=== PATIENT | male | born 1940 | race Caucasian/White ===

== ENCOUNTER → 2017-08-30 | Outpatient (CLI) | payer MEDICARE ==
--- NOTE | 2017-08-30 13:22 | MR ---
MRI CERVICAL SPINE: CLINICAL HISTORY: R 26.81, G 20 TECHNIQUE: Multiplanar, multisequence imaging of the cervical spine and brain is performed without co ntrast COMPARISON: None. FINDINGS: Brain: No restricted diffusion to suggest subacute ischemia. Cortical atrophy is likely age-related, there is ventriculomegaly in accordance with the degree of cortical atrophy. Inflammatory changes pre sent in the maxillary sinuses, ethmoid air cells and sphenoid sinus. No mass effect. No evident hemor rhage. There are normal vascular flow voids. Periventricular confluent and scattered hyperintensities are present on inversion recovery and T2-weighted sequences. The orbits are symmetric. Cerebellopont ine angles, corpus callosum, pituitary, cervical medullary junction are within normal limits. IMPRESSION: Age-related atrophy and chronic small vessel ischemia. Sinus disease. Cervical spine: Cervical vertebral bodies show preserved height, alignment, there is multilevel spond ylosis, loss of disc height and signal is present at C2-3, C4-5, C5-6 and C6-7. Cervical cord signal is normal. There is no significant central canal stenosis. C2-3, C3-4 show no significant disc herniation or foraminal encroachment, there is some facet arthrop athy present. C4-5: Broad-based posterior disc bulge causes minimal anterior mass effect, lateral extension endplat e disc complex does not show significant foraminal encroachment. C5-6: Anterolateral mass effect on the thecal sac, possibly contact with the anterior cervical cord t owards the right by endplate disc complex, lateral extension endplate disc complex causes bilateral f oraminal encroachment right greater than left. C6-7: Lateral extension of endplate disc complex causes foraminal encroachment on the left. No sizabl e disc herniation. C7-T1: Unremarkable. IMPRESSION: Degenerative disc disease greatest at C5-6, multilevel foraminal encroachment.
== END | disposition home or self-care (01) ==
LOC: RADMRIMAIN 10:20
PROVIDERS: ATTEND Neurological Surgery
DX: M50.322 Other cervical disc degeneration at C5-C6 level (principal); G20 Parkinson's disease
CPT/HCPCS: 70551; 72141

== ENCOUNTER 2017-09-04 21:09 | Emergency (ER) | payer MEDICARE ==
[2017-09-04] MEDS ORDERED: ACETAMINOPHEN TAB 500 MG TAB PO STA (22:02)
[2017-09-04] MEDS ORDERED: SODIUM CHLORIDE 0.9% 1,000 ML IV STA (22:02)
[2017-09-04] MEDS ORDERED: LIDOCAINE URO-JET JELLY 2% 5 ML KIT URETHRAL ONE (22:04)
--- NOTE | 2017-09-04 22:09 | ED ---
Fever HPI - General Chief Complaint: Fever Stated Complaint: fever Time Seen by Provider: 09/04/17 21:44 Source: patient Mode of arrival: wheelchair Limitations: no limitations - History of Present Illness Initial Comments: 77-year-old male patient presents to the emergency department today for complaints of fever. Patient is also experiencing cough, nasal congestion, and sore throat. Patient is reporting chills and lightheadedness. Patient is reporting sputum production with cough. The patient denies any shortness of breath, chest pain, abdominal pain, nausea, or vomiting. He denies any diarrhea or constipation. Patient's did just get over influenza. Patient did start Tamiflu prescribed by his primary care physician today. He has not taken anything for fever at this time. He is reporting increased weakness. Patient denies any recent rash, fever, chills, shortness breath, chest pain, abdominal pain, nausea, vomiting, diarrhea, constipation, back pain, numbness, tingling, dizziness, weakness, hematuria, dysuria, urinary urgency, urinary frequency, headache, visual changes, or any other complaints. - Related Data Home Medications Medication Instructions Recorded Confirmed Acetaminophen [Tylenol Extra 500 mg PO TID PRN 09/04/17 09/04/17 Strength] Aspirin EC [Ecotrin Low Dose] 81 mg PO DAILY 09/04/17 09/04/17 Carbidopa-Levodopa 25-100 mg 1 tab PO TID 09/04/17 09/04/17 [Sinemet 25-100] Docusate [Colace] 200 mg PO HS 09/04/17 09/04/17 Donepezil [Aricept] 10 mg PO DAILY 09/04/17 09/04/17 Inulin/Chromium Picolinate [Fiber 1 tab PO DAILY 09/04/17 09/04/17 Gummies Chew] Losartan Potassium 50 mg PO DAILY 09/04/17 09/04/17 Meloxicam 7.5 mg PO DAILY 09/04/17 09/04/17 QUEtiapine [SEROquel] 12.5 mg PO HS 09/04/17 09/04/17 Simvastatin [Zocor] 20 mg PO DAILY 09/04/17 09/04/17 Vit C/E/Zn/Coppr/Lutein/Zeaxan 1 cap PO DAILY 09/04/17 09/04/17 [Preservision Areds 2 Softgel] glyBURIDE [Diabeta] 2.5 mg PO DAILY 09/04/17 09/04/17 metFORMIN HCL 1,000 mg PO BID 09/04/17 09/04/17 Allergies Allergy/AdvReac Type Severity Reaction Status Date / Time Penicillins Allergy Rash/Hives Verified 09/04/17 22:39 Review of Systems ROS Statement: Those systems with pertinent positive or pertinent negative responses have been documented in the HPI. ROS Other: All systems not noted in ROS Statement are negative. Past Medical History Past Medical History: Diabetes Mellitus, Hyperlipidemia, Hypertension Additional Past Medical History / Comment(s): parkinson's, parathyroid dysfunction, kidney stones History of Any Multi-Drug Resistant Organisms: None Reported Additional Past Surgical History / Comment(s): parathyroid cyst removed Past Psychological History: No Psychological Hx Reported Smoking Status: Former smoker Past Alcohol Use History: Rare Past Drug Use History: None Reported General Exam Limitations: no limitations General appearance: alert, in no apparent distress, other (This is a well- developed, well-nourished elderly male patient in no acute distress. Vital signs upon presentation are temperature 102.1F, pulse 97, respirations 20, blood pressure 157/79, pulse ox 92% on room air.) Eye exam: Present: normal appearance, PERRL, EOMI. Absent: scleral icterus, conjunctival injection, periorbital swelling ENT exam: Present: normal exam, mucous membranes moist, TM's normal bilaterally. Absent: normal oropharynx (Pharyngeal erythema) Neck exam: Present: normal inspection. Absent: tenderness, meningismus, lymphadenopathy Respiratory exam: Present: rhonchi (Throughout all lung ramirez). Absent: normal lung sounds bilaterally, respiratory distress, wheezes, rales, stridor Cardiovascular Exam: Present: regular rate, normal rhythm, normal heart sounds. Absent: systolic murmur, diastolic murmur, rubs, gallop, clicks GI/Abdominal exam: Present: soft, normal bowel sounds. Absent: distended, tenderness, guarding, rebound, rigid Neurological exam: Present: oriented X3, CN II-XII intact. Absent: alert ( Drowsy) Psychiatric exam: Present: normal affect, normal mood Skin exam: Present: warm, dry, intact, normal color. Absent: rash Course Vital Signs 09/04/17 09/04/17 21:26 23:27 Temperature 102.1 F H 101.2 F H Pulse Rate 97 89 Respiratory 20 18 Rate Blood Pressure 157/79 134/67 O2 Sat by Pulse 92 L 93 L Oximetry Medical Decision Making - Medical Decision Making 77-year-old male patient presented to the emergency department today for complaints of fever, sore throat, and chills. Physical examination did reveal pharyngeal erythema. Tympanic membranes are intact. Lungs are clear to auscultation. Labs reviewed and showed a normal white blood cell count. Lactic acid was 1.2. Urinalysis did show trace protein, 1+ ketone, small amount of blood, trace leukocyte esterase, 25 red blood cells, few bacteria, and rare mucous. This has been sent for culture. Patient was positive for influenza type B. Patient did start Tamiflu today given by his primary care physician. Patient is feeling somewhat better after receiving IV fluids and antipyretic medication. He does have an appointment with his primary care physician tomorrow. We will discharge home at this time with instructions to return immediately for any new, worsening, or concerning symptoms were to verbalizes understanding and agrees with this plan. - Lab Data Result diagrams: 09/04/17 22:00 09/04/17 22:00 Lab Results 09/04/17 09/04/17 09/04/17 Range/Units 22:00 22:00 22:00 WBC 6.0 (3.8-10.6) k/uL RBC 4.50 (4.30-5.90) m/uL Hgb 13.1 (13.0-17.5) gm/dL Hct 38.5 L (39.0-53.0) % MCV 85.5 (80.0-100.0) fL MCH 29.2 (25.0-35.0) pg MCHC 34.1 (31.0-37.0) g/dL RDW 13.1 (11.5-15.5) % Plt Count 182 (150-450) k/uL Neutrophils % 76 % Lymphocytes % 11 % Monocytes % 10 % Eosinophils % 2 % Basophils % 1 % Neutrophils # 4.5 (1.3-7.7) k/uL Lymphocytes # 0.7 L (1.0-4.8) k/uL Monocytes # 0.6 (0-1.0) k/uL Eosinophils # 0.1 (0-0.7) k/uL Basophils # 0.0 (0-0.2) k/uL Sodium 138 (137-145) mmol/L Potassium 4.0 (3.5-5.1) mmol/L Chloride 97 L (98-107) mmol/L Carbon Dioxide 25 (22-30) mmol/L Anion Gap 16 mmol/L BUN 17 (9-20) mg/dL Creatinine 0.70 (0.66-1.25) mg/dL Est GFR (CKD-EPI)AfAm >90 (>60 ml/min/1.73 sqM) Est GFR (CKD-EPI)NonAf >90 (>60 ml/min/1.73 sqM) Glucose 148 H (74-99) mg/dL Plasma Lactic Acid Jamar 1.2 (0.7-2.0) mmol/L Calcium 9.4 (8.4-10.2) mg/dL Total Bilirubin 0.7 (0.2-1.3) mg/dL AST 22 (17-59) U/L ALT 18 L (21-72) U/L Alkaline Phosphatase 60 (38-126) U/L Total Protein 7.0 (6.3-8.2) g/dL Albumin 4.6 (3.5-5.0) g/dL Urine Color Urine Appearance (Clear) Urine pH (5.0-8.0) Ur Specific [place] (1.001-1.035) Urine Protein (Negative) Urine Glucose (UA) (Negative) Urine Ketones (Negative) Urine Blood (Negative) Urine Nitrite (Negative) Urine Bilirubin (Negative) Urine Urobilinogen (<2.0) mg/dL Ur Leukocyte Esterase (Negative) Urine RBC (0-5) /hpf Urine WBC (0-5) /hpf Urine Bacteria (None) /hpf Urine Mucus (None) /hpf Influenza Type A RNA (Not Detectd) Influenza Type B (PCR) (Not Detectd) 09/04/17 09/04/17 Range/Units 22:10 22:20 WBC (3.8-10.6) k/uL RBC (4.30-5.90) m/uL Hgb (13.0-17.5) gm/dL Hct (39.0-53.0) % MCV (80.0-100.0) fL MCH (25.0-35.0) pg MCHC (31.0-37.0) g/dL RDW (11.5-15.5) % Plt Count (150-450) k/uL Neutrophils % % Lymphocytes % % Monocytes % % Eosinophils % % Basophils % % Neutrophils # (1.3-7.7) k/uL Lymphocytes # (1.0-4.8) k/uL Monocytes # (0-1.0) k/uL Eosinophils # (0-0.7) k/uL Basophils # (0-0.2) k/uL Sodium (137-145) mmol/L Potassium (3.5-5.1) mmol/L Chloride (98-107) mmol/L Carbon Dioxide (22-30) mmol/L Anion Gap mmol/L BUN (9-20) mg/dL Creatinine (0.66-1.25) mg/dL Est GFR (CKD-EPI)AfAm (>60 ml/min/1.73 sqM) Est GFR (CKD-EPI)NonAf (>60 ml/min/1.73 sqM) Glucose (74-99) mg/dL Plasma Lactic Acid Jamar (0.7-2.0) mmol/L Calcium (8.4-10.2) mg/dL Total Bilirubin (0.2-1.3) mg/dL AST (17-59) U/L ALT (21-72) U/L Alkaline Phosphatase (38-126) U/L Total Protein (6.3-8.2) g/dL Albumin (3.5-5.0) g/dL Urine Color Yellow Urine Appearance Clear (Clear) Urine pH 5.0 (5.0-8.0) Ur Specific [place] 1.018 (1.001-1.035) Urine Protein Trace H (Negative) Urine Glucose (UA) Negative (Negative) Urine Ketones 1+ H (Negative) Urine Blood Small H (Negative) Urine Nitrite Positive (Negative) Urine Bilirubin Negative (Negative) Urine Urobilinogen <2.0 (<2.0) mg/dL Ur Leukocyte Esterase Trace H (Negative) Urine RBC 25 H (0-5) /hpf Urine WBC 5 (0-5) /hpf Urine Bacteria Few H (None) /hpf Urine Mucus Rare H (None) /hpf Influenza Type A RNA Not Detected (Not Detectd) Influenza Type B (PCR) Detected H (Not Detectd) - Radiology Data Radiology results: report reviewed, image reviewed Two-view x-ray of the chest shows no heart failure nor confluent pneumonic infiltrate. Costophrenic angles are clear. Thoracic aorta is atheromatous. Bony thorax is intact. There is some spurring in the thoracic spine. Impression by Dr. Rashid shows no active cardiopulmonary disease. Atheromatous aorta. Disposition Clinical Impression: Influenza B Disposition: HOME SELF-CARE Condition: Good Instructions: Fever in Adults (ED), Influenza (ED) Additional Instructions: Increase fluids. Alternate Tylenol Motrin for fever control. Follow-up with the primary care physician for recheck in 1-2 days. Return here immediately for any new, worsening, or concerning symptoms. Is patient prescribed a controlled substance at d/c from ED?: No Referrals: Dean Garrett MD [Primary Care Provider] - 1-2 days Time of Disposition: 23:48
[2017-09-04 22:15] LABS: Basophils % (A) 1 %; Eosinophils # (A) 0.1 k/uL (0-0.7); Eosinophils % (A) 2 %; HCT 38.5 % (39.0-53.0); HGB 13.1 gm/dL (13.0-17.5); Lymphocytes # (A) 0.7 k/uL (1.0-4.8); Lymphocytes % (A) 11 %; MCH 29.2 pg (25.0-35.0); MCHC 34.1 g/dL (31.0-37.0); MCV 85.5 fL (80.0-100.0); Mean Platelet Volume 7.8; Monocytes # (A) 0.6 k/uL (0-1.0); Monocytes % (A) 10 %; Neutrophils # (A) 4.5 k/uL (1.3-7.7); Neutrophils % (A) 76 %; Platelet Count 182 k/uL (150-450); RDW 13.1 % (11.5-15.5)
[2017-09-04 22:25] LABS: ALT 18 U/L (21-72); AST 22 U/L (17-59); Albumin 4.6 g/dL (3.5-5.0); Alkaline Phosphatase 60 U/L (38-126); Anion Gap 16 mmol/L; Blood Urea Nitrogen 17 mg/dL (9-20); Calcium 9.4 mg/dL (8.4-10.2); Carbon Dioxide 25 mmol/L (22-30); Chloride 97 mmol/L (98-107); Glucose 148 mg/dL (74-99); Sodium 138 mmol/L (137-145); Total Bilirubin 0.7 mg/dL (0.2-1.3)
[2017-09-04 22:32] LABS: Appearance,Urine Clear (Clear); Bacteria,Urine Few /hpf; Bilirubin,Urine Negative (Negative); Blood,Urine Small (Negative); Color,Urine Yellow; Glucose,Urine (UA) Negative (Negative); Ketones,Urine 1+ (Negative); Leukocyte Esterase,Urine Trace (Negative); Mucus,Urine Rare /hpf; Nitrite,Urine Positive (Negative); Protein,Urine Trace (Negative); RBC,Urine 25 /hpf (0-5); Specific Gravity,Urine 1.018 (1.001-1.035); Urobilinogen,Urine <2.0 mg/dL (<2.0); WBC,Urine 5 /hpf (0-5)
--- NOTE | 2017-09-04 22:55 | XR ---
EXAMINATION TYPE: XR chest 2V DATE OF EXAM: 09/04/2017 COMPARISON: NONE HISTORY: Fever TECHNIQUE: Frontal and lateral views of the chest are obtained. FINDINGS: There is no heart failure nor confluent pneumonic infiltrate. Costophrenic angles are shana r. Thoracic aorta is atheromatous. Bony thorax is intact. There is some spurring in the thoracic spin e. IMPRESSION: No active cardiopulmonary disease. Atheromatous aorta.
[2017-09-04 23:30] VITALS: BP 134/67; PULSE 89; RESP 18; TEMP 101.2
[2017-09-04] MEDS ORDERED: IBUPROFEN 600 MG TAB PO STA (23:48)
== END 2017-09-05 00:23 | disposition home or self-care (01) ==
LOC: EC 21:09
DX: J10.1 Influenza due to other identified influenza virus with other respiratory manifestations (principal); E11.9 Type 2 diabetes mellitus without complications; I10 Essential (primary) hypertension; E78.5 Hyperlipidemia, unspecified; Z88.0 Allergy status to penicillin; Z87.891 Personal history of nicotine dependence; Z79.82 Long term (current) use of aspirin; Z79.84 Long term (current) use of oral hypoglycemic drugs; Z79.4 Long term (current) use of insulin; Z79.899 Other long term (current) drug therapy
CPT/HCPCS: 36415; 71046; 80053; 81001; 83605; 85025; 87040; 87077; 87086; 87186; 87502; 96360; 96361; 99283

== ENCOUNTER 2018-12-14 15:53 | Observation (INO) | payer MEDICARE ==
--- NOTE | 2018-12-14 17:02 | ED ---
Neuro HPI - General Chief Complaint: Neuro Symptoms/Deficit Stated Complaint: Confusion Time Seen by Provider: 12/14/18 16:30 Source: patient, family, RN notes reviewed Mode of arrival: ambulatory Limitations: no limitations - History of Present Illness Is the patient presenting with stroke symptoms?: No Initial Comments: This is a 78-year-old male with history of Parkinson's disease who is brought in for evaluation for altered mental status which began last night he was doing somewhat better today he apparently he has some urinary frequency and got up a lot last night to examine some difficulty with ambulation no reports of fevers chills nausea vomiting sweats dysuria hematuria no focal deficits reported. He also had decreased oral intake since last night - Related Data Home Medications: Home Medications Medication Instructions Recorded Confirmed Acetaminophen [Tylenol Extra 500 mg PO TID PRN 09/04/17 12/14/18 Strength] Aspirin EC [Ecotrin Low Dose] 81 mg PO HS 09/04/17 12/14/18 Carbidopa-Levodopa 25-100 mg 1 tab PO TID 09/04/17 12/14/18 [Sinemet 25-100] Donepezil [Aricept] 10 mg PO HS 09/04/17 12/14/18 Losartan Potassium 50 mg PO DAILY 09/04/17 12/14/18 Meloxicam 7.5 mg PO HS 09/04/17 12/14/18 Simvastatin [Zocor] 20 mg PO HS 09/04/17 12/14/18 Vit C/E/Zn/Coppr/Lutein/Zeaxan 1 cap PO BID 09/04/17 12/14/18 [Preservision Areds 2 Softgel] metFORMIN HCL 1,000 mg PO DAILY 09/04/17 12/14/18 Calcium Polycarbophil [Fibercon] 625 mg PO DAILY 12/14/18 12/14/18 Docusate [Colace] 200 mg PO HS PRN 12/14/18 12/14/18 Glimepiride [Amaryl] 1 mg PO AC-BID 12/14/18 12/14/18 Allergies/Adverse Reactions: Allergies Allergy/AdvReac Type Severity Reaction Status Date / Time Penicillins Allergy Rash/Hives Verified 12/14/18 16:44 Review of Systems ROS Statement: Those systems with pertinent positive or pertinent negative responses have been documented in the HPI. ROS Other: All systems not noted in ROS Statement are negative. General Exam - General Exam Comments Initial Comments: This is a well-developed well-nourished awake but somewhat lethargic male he does demonstrate tremors consistent with Parkinson's disease Limitations: no limitations General appearance: alert, lethargic Head exam: Present: atraumatic, normocephalic, normal inspection Eye exam: Present: normal appearance, PERRL, EOMI. Absent: scleral icterus, conjunctival injection, periorbital swelling ENT exam: Present: mucous membranes dry Neck exam: Present: normal inspection. Absent: tenderness, meningismus, lymphadenopathy Respiratory exam: Present: normal lung sounds bilaterally. Absent: respiratory distress, wheezes, rales, rhonchi, stridor Cardiovascular Exam: Present: regular rate, normal rhythm, normal heart sounds. Absent: systolic murmur, diastolic murmur, rubs, gallop, clicks GI/Abdominal exam: Present: soft, normal bowel sounds, other (Suspect a small umbilical hernia no tenderness palpation). Absent: distended, tenderness, guarding, rebound, rigid exam: Present: normal inspection Extremities exam: Present: normal inspection, full ROM, normal capillary refill. Absent: tenderness, pedal edema, joint swelling, calf tenderness Back exam: Present: normal inspection Neurological exam: Present: alert, oriented X3, CN II-XII intact, other (Tremor consistent with Parkinson's disease) Psychiatric exam: Present: normal affect, normal mood Skin exam: Present: warm, dry, intact, normal color. Absent: rash Stroke MDM - Lab Data Result diagrams: 12/14/18 17:05 12/14/18 17:05 Lab Results 12/14/18 12/14/18 12/14/18 Range/Units 17:05 17:05 17:05 WBC 8.2 (3.8-10.6) k/uL RBC 4.05 L (4.30-5.90) m/uL Hgb 12.1 L (13.0-17.5) gm/dL Hct 36.1 L (39.0-53.0) % MCV 89.2 (80.0-100.0) fL MCH 29.9 (25.0-35.0) pg MCHC 33.5 (31.0-37.0) g/dL RDW 13.5 (11.5-15.5) % Plt Count 247 (150-450) k/uL Neutrophils % 82 % Lymphocytes % 9 % Monocytes % 5 % Eosinophils % 2 % Basophils % 1 % Neutrophils # 6.7 (1.3-7.7) k/uL Lymphocytes # 0.7 L (1.0-4.8) k/uL Monocytes # 0.4 (0-1.0) k/uL Eosinophils # 0.1 (0-0.7) k/uL Basophils # 0.1 (0-0.2) k/uL PT 10.0 (9.0-12.0) sec INR 0.9 (<1.2) APTT 26.4 (22.0-30.0) sec Sodium 138 (137-145) mmol/L Potassium 4.2 (3.5-5.1) mmol/L Chloride 100 (98-107) mmol/L Carbon Dioxide 24 (22-30) mmol/L Anion Gap 14 mmol/L BUN 23 H (9-20) mg/dL Creatinine 0.86 (0.66-1.25) mg/dL Est GFR (CKD-EPI)AfAm >90 (>60 ml/min/1.73 sqM) Est GFR (CKD-EPI)NonAf 84 (>60 ml/min/1.73 sqM) Glucose 130 H (74-99) mg/dL Calcium 9.0 (8.4-10.2) mg/dL Total Bilirubin 0.7 (0.2-1.3) mg/dL AST 17 (17-59) U/L ALT 12 L (21-72) U/L Alkaline Phosphatase 61 (38-126) U/L Troponin I (0.000-0.034) ng/mL Total Protein 7.1 (6.3-8.2) g/dL Albumin 4.3 (3.5-5.0) g/dL Urine Color Urine Appearance (Clear) Urine pH (5.0-8.0) Ur Specific [place] (1.001-1.035) Urine Protein (Negative) Urine Glucose (UA) (Negative) Urine Ketones (Negative) Urine Blood (Negative) Urine Nitrite (Negative) Urine Bilirubin (Negative) Urine Urobilinogen (<2.0) mg/dL Ur Leukocyte Esterase (Negative) Urine RBC (0-5) /hpf Urine WBC (0-5) /hpf Urine WBC Clumps (None) /hpf Urine Bacteria (None) /hpf Urine Mucus (None) /hpf 12/14/18 12/14/18 Range/Units 17:05 17:05 WBC (3.8-10.6) k/uL RBC (4.30-5.90) m/uL Hgb (13.0-17.5) gm/dL Hct (39.0-53.0) % MCV (80.0-100.0) fL MCH (25.0-35.0) pg MCHC (31.0-37.0) g/dL RDW (11.5-15.5) % Plt Count (150-450) k/uL Neutrophils % % Lymphocytes % % Monocytes % % Eosinophils % % Basophils % % Neutrophils # (1.3-7.7) k/uL Lymphocytes # (1.0-4.8) k/uL Monocytes # (0-1.0) k/uL Eosinophils # (0-0.7) k/uL Basophils # (0-0.2) k/uL PT (9.0-12.0) sec INR (<1.2) APTT (22.0-30.0) sec Sodium (137-145) mmol/L Potassium (3.5-5.1) mmol/L Chloride (98-107) mmol/L Carbon Dioxide (22-30) mmol/L Anion Gap mmol/L BUN (9-20) mg/dL Creatinine (0.66-1.25) mg/dL Est GFR (CKD-EPI)AfAm (>60 ml/min/1.73 sqM) Est GFR (CKD-EPI)NonAf (>60 ml/min/1.73 sqM) Glucose (74-99) mg/dL Calcium (8.4-10.2) mg/dL Total Bilirubin (0.2-1.3) mg/dL AST (17-59) U/L ALT (21-72) U/L Alkaline Phosphatase (38-126) U/L Troponin I <0.012 (0.000-0.034) ng/mL Total Protein (6.3-8.2) g/dL Albumin (3.5-5.0) g/dL Urine Color Yellow Urine Appearance Clear (Clear) Urine pH 5.5 (5.0-8.0) Ur Specific [place] 1.027 (1.001-1.035) Urine Protein Trace H (Negative) Urine Glucose (UA) Negative (Negative) Urine Ketones Trace H (Negative) Urine Blood Moderate H (Negative) Urine Nitrite Positive (Negative) Urine Bilirubin Negative (Negative) Urine Urobilinogen <2.0 (<2.0) mg/dL Ur Leukocyte Esterase Moderate H (Negative) Urine RBC 61 H (0-5) /hpf Urine WBC 17 H (0-5) /hpf Urine WBC Clumps Rare H (None) /hpf Urine Bacteria Many H (None) /hpf Urine Mucus Few H (None) /hpf - NIH Stroke Scale 1a. Level of Consciousness: (0) alert 1b. LOC Questions: (0) answers correctly 1c. LOC Commands: (0) performs tasks correctly 2. Best Gaze: (0) normal 3. Visual: (0) no visual loss 4. Facial Palsy: (0) normal symmetrical movement 5a. Motor Arm Left: (0) no drift 5b. Motor Arm Right: (0) no drift 6a. Motor Leg Left: (0) no drift 6b. Motor Leg Right: (0) no drift 7. Limb Ataxia: (0) absent 8. Sensory: (0) normal 9. Best Language: (0) no aphasia 10. Dysarthria: (0) normal 11. Extinction/Inattention: (0) no abnormality - Medical Decision Making Did discuss [employer] the patient family patient is demonstrated evidence of UTI and some dehydration he'll be admitted with IV antibiotics. Case is discussed with Dr. Caban - Radiology Data Radiology results: report reviewed (Acute findings), image reviewed - EKG Data -: EKG Interpreted by Me (Sinus rhythm with artifact rate was 54 QRS 160 QT si nce QTC 416/394 by [facility]) Past Medical History Past Medical History: Diabetes Mellitus, Hyperlipidemia, Hypertension Additional Past Medical History / Comment(s): parkinson's, parathyroid dysfunction, kidney stones History of Any Multi-Drug Resistant Organisms: None Reported Additional Past Surgical History / Comment(s): parathyroid cyst removed, deep brain stimulation Past Psychological History: No Psychological Hx Reported Smoking Status: Former smoker Past Alcohol Use History: Rare Past Drug Use History: None Reported Course Vital Signs 12/14/18 12/14/18 16:13 18:00 Temperature 99.6 F Pulse Rate 72 56 L Respiratory 18 20 Rate Blood Pressure 115/63 121/71 O2 Sat by Pulse 95 98 Oximetry - Reevaluation(s) Reevaluation #1: 12/14/18 18:52 I did reevaluate patient no new findings. Disposition Clinical Impression: Urinary tract infection, Dehydration, Delirium due to general medical condition Disposition: ADMITTED IP TO THIS HOSP Condition: Fair Referrals: Dean Garrett MD [Primary Care Provider] - 1-2 days
[2018-12-14 17:15] LABS: Basophils # (A) 0.1 k/uL (0-0.2); Basophils % (A) 1 %; Eosinophils # (A) 0.1 k/uL (0-0.7); Eosinophils % (A) 2 %; HCT 36.1 % (39.0-53.0); HGB 12.1 gm/dL (13.0-17.5); Lymphocytes # (A) 0.7 k/uL (1.0-4.8); Lymphocytes % (A) 9 %; MCH 29.9 pg (25.0-35.0); MCHC 33.5 g/dL (31.0-37.0); MCV 89.2 fL (80.0-100.0); Mean Platelet Volume 7.6; Monocytes # (A) 0.4 k/uL (0-1.0); Monocytes % (A) 5 %; Neutrophils # (A) 6.7 k/uL (1.3-7.7); Neutrophils % (A) 82 %; Platelet Count 247 k/uL (150-450); RBC 4.05 m/uL (4.30-5.90); RDW 13.5 % (11.5-15.5); WBC 8.2 k/uL (3.8-10.6)
[2018-12-14 17:19] LABS: ALT 12 U/L (21-72); AST 17 U/L (17-59); African American GFR (CKD) >90 (>60 ml/min/1.73 sqM); Albumin 4.3 g/dL (3.5-5.0); Alkaline Phosphatase 61 U/L (38-126); Anion Gap 14 mmol/L; Blood Urea Nitrogen 23 mg/dL (9-20); Carbon Dioxide 24 mmol/L (22-30); Chloride 100 mmol/L (98-107); Glucose 130 mg/dL (74-99); INR 0.9 (<1.2); Partial Thromboplastin Time 26.4 sec (22.0-30.0); Potassium 4.2 mmol/L (3.5-5.1); Sodium 138 mmol/L (137-145); Total Bilirubin 0.7 mg/dL (0.2-1.3); Total Protein 7.1 g/dL (6.3-8.2)
--- NOTE | 2018-12-14 17:41 | XR ---
EXAMINATION TYPE: XR chest 2V DATE OF EXAM: 12/14/2018 COMPARISON: 09/04/2017 HISTORY: Altered mental status TECHNIQUE: Frontal and lateral views of the chest are obtained. FINDINGS: Heart is normal. Lungs are clear of consolidation. Thoracic aorta is atheromatous. There i s no pleural effusion. There are chest leads. There are bilateral neural stimulators over the upper c hest. IMPRESSION: No active cardiopulmonary disease. No change.
[2018-12-14 17:45] LABS: Appearance,Urine Clear (Clear); Bacteria,Urine Many /hpf; Bilirubin,Urine Negative (Negative); Blood,Urine Moderate (Negative); Color,Urine Yellow; Glucose,Urine (UA) Negative (Negative); Ketones,Urine Trace (Negative); Leukocyte Esterase,Urine Moderate (Negative); Mucus,Urine Few /hpf; Nitrite,Urine Positive (Negative); PH, Urine 5.5 (5.0-8.0); Protein,Urine Trace (Negative); RBC,Urine 61 /hpf (0-5); Specific Gravity,Urine 1.027 (1.001-1.035); Urobilinogen,Urine <2.0 mg/dL (<2.0)
--- NOTE | 2018-12-14 17:49 | CT ---
EXAMINATION TYPE: CT brain wo con for TPA DATE OF EXAM: 12/14/2018 COMPARISON: None HISTORY: Confusion and lower extremity weakness. CT DLP: 1206.4 mGycm Automated exposure control for dose reduction was used. FINDINGS: There is some cerebral cortical atrophy. There are bilateral thalamic electrodes. There is no mass ef fect nor midline shift. There is no sign of intracranial hemorrhage. Calvarium is intact. There is mu cosal thickening with calcification involving left maxillary sinus. There is some osteosclerosis of t he niño of the left maxillary sinus. There is no significant expansion. IMPRESSION: CEREBRAL ATROPHY. CHRONIC LEFT MAXILLARY SINUSITIS. LEFT MAXILLARY SINUS DISEASE SIGNIFICANTLY INCREA SED COMPARED TO MR SCAN .
[2018-12-14] MEDS ORDERED: cefTRIAXone IN SWFI 1,000 MG/10 ML SYRINGE IVP STA (18:00)
[2018-12-14] MEDS ORDERED: NALOXONE 0.4 MG/ML 1 ML VIAL IV PRN (18:54)
[2018-12-14] MEDS ORDERED: DOCUSATE 100 MG CAP PO PRN (19:00)
[2018-12-14] MEDS ORDERED: ACETAMINOPHEN TAB 500 MG TAB PO PRN (19:00)
[2018-12-14 21:19] VITALS: BMI 26.4
[2018-12-14] MEDS: SODIUM CHLORIDE 0.9% 1,000 ML IV SCH (21:37)
[2018-12-14] MEDS: CARBIDOPA-LEVODOPA 25-100 MG 1 EACH TAB PO SCH (21:37)
[2018-12-14] MEDS: ASPIRIN 81 MG PO SCH (21:37)
[2018-12-14] MEDS: VIT A,C & E-LUTEIN-MINERALS 1 EACH TAB PO SCH (21:37)
[2018-12-14] MEDS: ATORVASTATIN 10 MG TAB PO SCH (21:37)
[2018-12-14] MEDS: MELOXICAM 7.5 MG TAB PO SCH (21:37)
[2018-12-14] MEDS: DONEPEZIL 10 MG TAB PO SCH (21:37)
[2018-12-15 07:10] LABS: Glucose,Whole Blood 145 mg/dL (75-99)
[2018-12-15] MEDS ORDERED: cefTRIAXone IN SWFI 1,000 MG/10 ML SYRINGE IVP SCH (09:00)
[2018-12-15] MEDS: CARBIDOPA-LEVODOPA 25-100 MG 1 EACH TAB PO SCH ×3 (09:22→22:16)
[2018-12-15] MEDS: CALCIUM POLYCARBOPHIL 625 MG TAB PO SCH (09:22)
[2018-12-15] MEDS: LOSARTAN 50 MG TAB PO SCH (09:22)
[2018-12-15] MEDS: GLIMEPIRIDE 1 MG TAB PO SCH ×2 (09:23→16:43)
[2018-12-15] MEDS: metFORMIN 500 MG TAB PO SCH (09:23)
[2018-12-15] MEDS: VIT A,C & E-LUTEIN-MINERALS 1 EACH TAB PO SCH ×2 (09:23→22:16)
[2018-12-15 12:32] LABS: Glucose,Whole Blood 182 mg/dL (75-99)
--- NOTE | 2018-12-15 13:25 | P.HPIM ---
History of Present Illness H&P Date: 12/15/18 Chief Complaint: Acute confusion History of presenting complaint: This is a very pleasant 78-year-old patient of Dr. Dean Lang. Chronic stable medical conditions include diabetes mellitus type 2, hypertension, hyperlipidemia, kidney stones, and Parkinson's disease with a deep brain stimulator that's rather well controlled. History provided with the and the daughter the bedside. About 2 days patient has become somewhat confused and less active and had more urinary frequency. Patient also noted to have a fever here. Normally able to get from the house. Does use a walker when he goes outside. Appetite also gone down. In the ER was found to have a UTI started and IV ceftriaxone. No chills reported. Review of systems: GEN.: Fever EYES: None HEENT: None NECK: None RESPIRATORY: None CARDIOVASCULAR: None GASTROINTESTINAL: None GENITOURINARY: Urinary frequency MUSCULOSKELETAL: None LYMPHATICS: None HEMATOLOGICAL: None PSYCHIATRY: A bit confused NEUROLOGICAL: Less active Social history: Patient does smoke in the past. Does use a walker to go outside the house. . Retired. Family history: Dementia Physical examination: VITAL SIGNS: 100.1, 52, 16, 104/55, 93% room air GENERAL: Average built, propped up in bed, awake, masked facies. EYES: Pupils equal. Conjunctiva normal. HEENT: External appearance of nose and ears normal, oral cavity grossly normal. NECK: JVD not raised; masses not palpable. HEART: First and second heart sounds are normal; no edema. LUNGS: Respiratory rate normal; clear to auscultation. ABDOMEN: Soft, nontender, liver spleen not palpable, no masses palpable. PSYCH: Patient able to answer simple questionsl. NEUROLOGICAL: Cranial nerves grossly intact; no facial asymmetry, power and sensation grossly intact, been rolling movement in the right arm, finger counting fairly good, minimal rigidity. LYMPHATICS: No lymph nodes palpable in the axilla and neck Investigations: White count 8.2 hemoglobin 12.1 potassium 4.2 creatinine 0.86 Accu-Cheks 145, 182 EKG tracing personally reviewed by me shows right bundle branch block Chest x-ray film personally reviewed by me shows no obvious infiltrate. Assessment: -Acute idiopathic Parkinson's disease exacerbation secondary to UTI -Acute UTI secondary to cystitis -Acute delirium due to underlying UTI -Diabetes mellitus type 2 on oral hypoglycemic, uncontrolled with underlying infection, with hypoglycemia -Essential hypertension -Hyperlipidemia Plan: Patient started and IV ceftriaxone. Urine cultures pending. Lovenox for DVT prophylaxis. Home medications resumed. No need to change the antiparkinson medication. Care was discussed at length with the patient's and daughter the bedside. Questions were answered. Getting IV fluids. Increase activity as tolerated. Past Medical History Past Medical History: Diabetes Mellitus, Hyperlipidemia, Hypertension Additional Past Medical History / Comment(s): parkinson's, parathyroid dysfunction, kidney stones History of Any Multi-Drug Resistant Organisms: None Reported Additional Past Surgical History / Comment(s): parathyroid cyst removed, deep brain stimulation Past Psychological History: No Psychological Hx Reported Smoking Status: Former smoker Past Alcohol Use History: Rare Past Drug Use History: None Reported - Past Family History Mother Family Medical History: Dementia Medications and Allergies Home Medications Medication Instructions Recorded Confirmed Type Acetaminophen [Tylenol Extra 500 mg PO TID PRN 09/04/17 12/14/18 History Strength] Aspirin EC [Ecotrin Low Dose] 81 mg PO HS 09/04/17 12/14/18 History Carbidopa-Levodopa 25-100 mg 1 tab PO TID 09/04/17 12/14/18 History [Sinemet 25-100] Donepezil [Aricept] 10 mg PO HS 09/04/17 12/14/18 History Losartan Potassium 50 mg PO DAILY 09/04/17 12/14/18 History Meloxicam 7.5 mg PO HS 09/04/17 12/14/18 History Simvastatin [Zocor] 20 mg PO HS 09/04/17 12/14/18 History Vit C/E/Zn/Coppr/Lutein/Zeaxan 1 cap PO BID 09/04/17 12/14/18 History [Preservision Areds 2 Softgel] metFORMIN HCL 1,000 mg PO DAILY 09/04/17 12/14/18 History Calcium Polycarbophil [Fibercon] 625 mg PO DAILY 12/14/18 12/14/18 History Docusate [Colace] 200 mg PO HS PRN 12/14/18 12/14/18 History Glimepiride [Amaryl] 1 mg PO AC-BID 12/14/18 12/14/18 History Allergies Allergy/AdvReac Type Severity Reaction Status Date / Time Penicillins Allergy Rash/Hives Verified 12/14/18 16:44 Physical Exam Vitals: Vital Signs Temp Pulse Pulse Resp BP BP BP 12/15/18 04:55 98.4 F 53 L 20 131/79 12/14/18 21:47 100.1 F H 52 L 16 104/55 12/14/18 20:04 83 16 125/63 12/14/18 18:00 56 L 20 121/71 12/14/18 16:13 99.6 F 72 18 115/63 Pulse Ox 12/15/18 04:55 95 12/14/18 21:47 93 L 12/14/18 20:04 96 12/14/18 18:00 98 12/14/18 16:13 95 Intake and Output 12/14/18 12/15/18 12/15/18 22:59 06:59 14:59 Intake Total 100 Balance 100 Intake: Oral 100 Other: # Voids 1 3 # Bowel Movements 0 Weight 82.554 kg Results CBC & Chem 7: 12/14/18 17:05 12/14/18 17:05 Labs: Abnormal Lab Results - Last 24 Hours (Table) 12/14/18 12/14/18 12/14/18 Range/Units 17:05 17:05 17:05 RBC 4.05 L (4.30-5.90) m/uL Hgb 12.1 L (13.0-17.5) gm/dL Hct 36.1 L (39.0-53.0) % Lymphocytes # 0.7 L (1.0-4.8) k/uL BUN 23 H (9-20) mg/dL Glucose 130 H (74-99) mg/dL POC Glucose (mg/dL) (75-99) mg/dL ALT 12 L (21-72) U/L Urine Protein Trace H (Negative) Urine Ketones Trace H (Negative) Urine Blood Moderate H (Negative) Ur Leukocyte Esterase Moderate H (Negative) Urine RBC 61 H (0-5) /hpf Urine WBC 17 H (0-5) /hpf Urine WBC Clumps Rare H (None) /hpf Urine Bacteria Many H (None) /hpf Urine Mucus Few H (None) /hpf 12/15/18 Range/Units 07:08 RBC (4.30-5.90) m/uL Hgb (13.0-17.5) gm/dL Hct (39.0-53.0) % Lymphocytes # (1.0-4.8) k/uL BUN (9-20) mg/dL Glucose (74-99) mg/dL POC Glucose (mg/dL) 145 H (75-99) mg/dL ALT (21-72) U/L Urine Protein (Negative) Urine Ketones (Negative) Urine Blood (Negative) Ur Leukocyte Esterase (Negative) Urine RBC (0-5) /hpf Urine WBC (0-5) /hpf Urine WBC Clumps (None) /hpf Urine Bacteria (None) /hpf Urine Mucus (None) /hpf Microbiology - Last 24 Hours (Table) 12/14/18 17:05 Urine Culture - Preliminary Urine,Voided Thrombosis Risk Factor Assmnt - Choose All That Apply Any of the Below Risk Factors Present?: Yes Each Factor Represents 1 point: Obesity (BMI >25) Other Risk Factors: Yes Each Risk Factor Represents 3 Points: Age 75 years or older Thrombosis Risk Factor Assessment Total Risk Factor Score: 4 Thrombosis Risk Factor Assessment Level: Moderate Risk
[2018-12-15] MEDS: ENOXAPARIN 40 MG/0.4 ML SYRINGE SQ SCH (13:26)
[2018-12-15] MEDS: SODIUM CHLORIDE 0.9% 1,000 ML IV SCH ×2 (13:38→22:16)
[2018-12-15 16:45] LABS: Glucose,Whole Blood 155 mg/dL (75-99)
[2018-12-15] MEDS: MELOXICAM 7.5 MG TAB PO SCH (22:15)
[2018-12-15] MEDS: ASPIRIN 81 MG PO SCH (22:15)
[2018-12-15] MEDS: ATORVASTATIN 10 MG TAB PO SCH (22:15)
[2018-12-15] MEDS: DONEPEZIL 10 MG TAB PO SCH (22:16)
[2018-12-15 22:17] LABS: Glucose,Whole Blood 177 mg/dL (75-99)
[2018-12-16 05:17] VITALS: BP 147/72; PULSE 54; RESP 20; TEMP 97.8
[2018-12-16 07:26] LABS: Glucose,Whole Blood 146 mg/dL (75-99)
[2018-12-16] MEDS: CALCIUM POLYCARBOPHIL 625 MG TAB PO SCH (08:04)
[2018-12-16] MEDS: LOSARTAN 50 MG TAB PO SCH (08:04)
[2018-12-16] MEDS: metFORMIN 500 MG TAB PO SCH (08:04)
[2018-12-16] MEDS: CARBIDOPA-LEVODOPA 25-100 MG 1 EACH TAB PO SCH (08:04)
[2018-12-16] MEDS: VIT A,C & E-LUTEIN-MINERALS 1 EACH TAB PO SCH (08:04)
[2018-12-16] MEDS: GLIMEPIRIDE 1 MG TAB PO SCH (08:04)
[2018-12-16] MEDS: ENOXAPARIN 40 MG/0.4 ML SYRINGE SQ SCH (08:05)
[2018-12-16] MEDS: SODIUM CHLORIDE 0.9% 1,000 ML IV SCH (10:53)
[2018-12-16 12:06] LABS: Glucose,Whole Blood 208 mg/dL (75-99)
--- NOTE | 2018-12-16 20:59 | P.DS ---
Providers Date of admission: 12/14/18 18:55 Expected date of discharge: 12/16/18 Attending physician: Abdon Caban Primary care physician: Dean Ortiz [facility] Course: Hospital course: This is a very pleasant 78-year-old patient of Dr. Dean Lang. Chronic stable medical conditions include diabetes mellitus type 2, hypertension, hyperlipidemia, kidney stones, and Parkinson's disease with a deep brain stimulator that's rather well controlled. History provided with the and the daughter the bedside. About 2 days patient has become somewhat confused and less active and had more urinary frequency. Patient also noted to have a fever here. Normally able to get from the house. Does use a walker when he goes outside. Appetite also gone down. In the ER was found to have a UTI started and IV ceftriaxone. No chills reported. Patient felt to encephalopathy and delirium from the UTI. Responded well to antibiotics. Today doing much better. Nearly back to his baseline. Walking much better. Dr. the patient and . Kai to home. Physical examination: VITAL SIGNS: 97.8, 54, 20, 147/72, 94% room air GENERAL: Average built, propped up in bed, awake, masked facies. EYES: Pupils equal. Conjunctiva normal. HEENT: External appearance of nose and ears normal, oral cavity grossly normal. NECK: JVD not raised; masses not palpable. HEART: First and second heart sounds are normal; no edema. LUNGS: Respiratory rate normal; clear to auscultation. ABDOMEN: Soft, nontender, liver spleen not palpable, no masses palpable. PSYCH: Patient able to answer simple questionsl. NEUROLOGICAL: Cranial nerves grossly intact; no facial asymmetry, power and sensation grossly intact, been rolling movement in the right arm, finger counting fairly good, minimal rigidity. Investigations: White count 8.2 hemoglobin 12.1 potassium 4.2 creatinine 0.86 EKG tracing personally reviewed by me shows right bundle branch block Chest x-ray film personally reviewed by me shows no obvious infiltrate. Discharge diagnosis: -Acute idiopathic Parkinson's disease exacerbation secondary to UTI -Acute UTI secondary to cystitis, from gram-negative bacilli -Acute delirium due to underlying UTI, improved -Diabetes mellitus type 2 on oral hypoglycemic, uncontrolled with underlying infection, with hyperglycemia -Essential hypertension -Hyperlipidemia Disposition: Home Patient Condition at Discharge: Stable Plan - Discharge Summary New Discharge Prescriptions: New Cefuroxime Axetil [Ceftin] 500 mg PO BID #14 tab Continue Vit C/E/Zn/Coppr/Lutein/Zeaxan [Preservision Areds 2 Softgel] 1 cap PO BID Acetaminophen [Tylenol Extra Strength] 500 mg PO TID PRN PRN Reason: Pain Aspirin EC [Ecotrin Low Dose] 81 mg PO HS Simvastatin [Zocor] 20 mg PO HS Meloxicam 7.5 mg PO HS Donepezil [Aricept] 10 mg PO HS metFORMIN HCL 1,000 mg PO DAILY Losartan Potassium 50 mg PO DAILY Carbidopa-Levodopa 25-100 mg [Sinemet 25-100 mg] 1 tab PO TID Calcium Polycarbophil [Fibercon] 625 mg PO DAILY Docusate [Colace] 200 mg PO HS PRN PRN Reason: Constipation Glimepiride [Amaryl] 1 mg PO AC-BID Discharge Medication List Acetaminophen [Tylenol Extra Strength] 500 mg PO TID PRN 09/04/17 [History] Aspirin EC [Ecotrin Low Dose] 81 mg PO HS 09/04/17 [History] Carbidopa-Levodopa 25-100 mg [Sinemet 25-100 mg] 1 tab PO TID 09/04/17 [History] Donepezil [Aricept] 10 mg PO HS 09/04/17 [History] Losartan Potassium 50 mg PO DAILY 09/04/17 [History] Meloxicam 7.5 mg PO HS 09/04/17 [History] Simvastatin [Zocor] 20 mg PO HS 09/04/17 [History] Vit C/E/Zn/Coppr/Lutein/Zeaxan [Preservision Areds 2 Softgel] 1 cap PO BID 09/04/17 [History] metFORMIN HCL 1,000 mg PO DAILY 09/04/17 [History] Calcium Polycarbophil [Fibercon] 625 mg PO DAILY 12/14/18 [History] Docusate [Colace] 200 mg PO HS PRN 12/14/18 [History] Glimepiride [Amaryl] 1 mg PO AC-BID 12/14/18 [History] Cefuroxime Axetil [Ceftin] 500 mg PO BID #14 tab 12/16/18 [Rx] Follow up Appointment(s)/Referral(s): Dean Garrett MD [Primary Care Provider] - 1-2 days (office to call you with a appt) Patient Instructions/Handouts: Urinary Tract Infection in Men (DC) Activity/Diet/Wound Care/Special Instructions: Regular diet. Activity as tolerated, fall precautions. Discharge Disposition: HOME SELF-CARE
== END 2018-12-16 14:34 | disposition home or self-care (01) ==
LOC: EC 15:53 → 4MS4W 18:55
PROVIDERS: ADMIT Hospitalist; ATTEND Hospitalist
DX: N30.90 Cystitis, unspecified without hematuria (principal); G20 Parkinson's disease; E86.0 Dehydration; F05 Delirium due to known physiological condition; B96.89 Other specified bacterial agents as the cause of diseases classified elsewhere; E21.4 Other specified disorders of parathyroid gland; E11.65 Type 2 diabetes mellitus with hyperglycemia; I10 Essential (primary) hypertension; E78.5 Hyperlipidemia, unspecified; E66.9 Obesity, unspecified; Z68.26 Body mass index [BMI] 26.0-26.9, adult; Z87.442 Personal history of urinary calculi; Z96.89 Presence of other specified functional implants; Z87.891 Personal history of nicotine dependence; Z79.899 Other long term (current) drug therapy; Z79.82 Long term (current) use of aspirin; Z79.84 Long term (current) use of oral hypoglycemic drugs; Z79.1 Long term (current) use of non-steroidal anti-inflammatories (NSAID); Z88.0 Allergy status to penicillin; Z81.8 Family history of other mental and behavioral disorders
CPT/HCPCS: 96361 ×2; 96365; 96366 ×2; 96372 ×2; 96376; 99285; 36415; 80053; 84484; 85025; 85610; 85730; 81001; 87040; 87086; 87077; 87186; 71046; 70450; G0378 ×3; J1650 ×2; J0696 ×3

== ENCOUNTER 2019-05-09 22:48 | Emergency (ER) | payer MEDICARE ==
--- NOTE | 2019-05-09 23:38 | ED ---
Abdominal Pain HPI - General Chief Complaint: Abdominal Pain Stated Complaint: Constipation Time Seen by Provider: 05/09/19 23:05 Source: patient, family Mode of arrival: ambulatory Limitations: no limitations - History of Present Illness Initial Comments: this patient is a 78-year-old man who presents to be evaluated for what he suspects his constipation. The patient had been having low abdominal pressure and not been able to have a normal bowel movement for going on 2 days now. The patient did attempt to have bowel movement earlier but was only able to pass small bits of hard stool. He still feels as if he needs to have a bowel movement. The patient indicates the discomfort in the low abdominal/suprapubic area. The discomfort is pressure, intermittent, mild. MD Complaint: abdominal pain Onset/Timin -: days(s) Location: suprapubic Radiation: none Migration to: no migration Severity: mild Quality: cramping, fullness Consistency: intermittent Improves With: nothing Worsens With: nothing Associated Symptoms: constipation - Related Data Home Medications Medication Instructions Recorded Confirmed Acetaminophen [Tylenol Extra 500 mg PO TID PRN 09/04/17 12/14/18 Strength] Aspirin EC [Ecotrin Low Dose] 81 mg PO HS 09/04/17 12/14/18 Carbidopa-Levodopa 25-100 mg 1 tab PO TID 09/04/17 12/14/18 [Sinemet 25-100 mg] Donepezil [Aricept] 10 mg PO HS 09/04/17 12/14/18 Losartan Potassium 50 mg PO DAILY 09/04/17 12/14/18 Meloxicam 7.5 mg PO HS 09/04/17 12/14/18 Simvastatin [Zocor] 20 mg PO HS 09/04/17 12/14/18 Vit C/E/Zn/Coppr/Lutein/Zeaxan 1 cap PO BID 09/04/17 12/14/18 [Preservision Areds 2 Softgel] metFORMIN HCL 1,000 mg PO DAILY 09/04/17 12/14/18 Calcium Polycarbophil [Fibercon] 625 mg PO DAILY 12/14/18 12/14/18 Docusate [Colace] 200 mg PO HS PRN 12/14/18 12/14/18 Glimepiride [Amaryl] 1 mg PO AC-BID 12/14/18 12/14/18 Previous Rx's Medication Instructions Recorded Cefuroxime Axetil [Ceftin] 500 mg PO BID #14 tab 12/16/18 Allergies Allergy/AdvReac Type Severity Reaction Status Date / Time Penicillins Allergy Rash/Hives Verified 05/09/19 22:56 Review of Systems ROS Statement: Those systems with pertinent positive or pertinent negative responses have been documented in the HPI. ROS Other: All systems not noted in ROS Statement are negative. Constitutional: Denies: fever, chills Respiratory: Reports: cough. Denies: dyspnea Cardiovascular: Denies: chest pain, palpitations, edema Gastrointestinal: Reports: abdominal pain, constipation. Denies: nausea, vomiting, diarrhea, melena, hematochezia Genitourinary: Denies: dysuria, testicular pain Musculoskeletal: Denies: back pain Skin: Denies: rash Neurological: Denies: headache, weakness, numbness Past Medical History Past Medical History: Diabetes Mellitus, Hyperlipidemia, Hypertension Additional Past Medical History / Comment(s): parkinson's, parathyroid dysfunction, kidney stones History of Any Multi-Drug Resistant Organisms: None Reported Additional Past Surgical History / Comment(s): parathyroid cyst removed, deep brain stimulation Past Psychological History: No Psychological Hx Reported Smoking Status: Former smoker Past Alcohol Use History: Rare Past Drug Use History: None Reported - Past Family History Mother Family Medical History: Dementia General Exam Limitations: no limitations General appearance: alert, in no apparent distress Head exam: Present: atraumatic, normocephalic Eye exam: Present: normal appearance. Absent: scleral icterus, conjunctival injection Respiratory exam: Present: normal lung sounds bilaterally. Absent: respiratory distress, wheezes, rales, rhonchi, stridor Cardiovascular Exam: Present: regular rate, normal rhythm, normal heart sounds. Absent: systolic murmur, diastolic murmur, rubs, gallop GI/Abdominal exam: Present: soft, hypoactive bowel sounds. Absent: distended, tenderness, guarding, rebound, rigid, mass exam: Present: normal inspection Extremities exam: Present: normal inspection, normal capillary refill. Absent: pedal edema, calf tenderness Neurological exam: Present: alert Skin exam: Present: warm, dry, intact, normal color. Absent: rash Course Vital Signs 05/09/19 22:51 Temperature 98.4 F Pulse Rate 79 Respiratory 20 Rate Blood Pressure 165/94 O2 Sat by Pulse 96 Oximetry Medical Decision Making - Lab Data Result diagrams: 05/09/19 23:55 05/09/19 23:55 Lab Results 05/09/19 05/09/19 05/10/19 Range/Units 23:55 23:55 00:40 WBC 10.0 (3.8-10.6) k/uL RBC 4.33 (4.30-5.90) m/uL Hgb 13.1 (13.0-17.5) gm/dL Hct 38.0 L (39.0-53.0) % MCV 87.8 (80.0-100.0) fL MCH 30.3 (25.0-35.0) pg MCHC 34.5 (31.0-37.0) g/dL RDW 12.8 (11.5-15.5) % Plt Count 221 (150-450) k/uL Neutrophils % 77 % Lymphocytes % 14 % Monocytes % 7 % Eosinophils % 1 % Basophils % 1 % Neutrophils # 7.7 (1.3-7.7) k/uL Lymphocytes # 1.4 (1.0-4.8) k/uL Monocytes # 0.7 (0-1.0) k/uL Eosinophils # 0.1 (0-0.7) k/uL Basophils # 0.1 (0-0.2) k/uL Sodium 137 (137-145) mmol/L Potassium 4.2 (3.5-5.1) mmol/L Chloride 100 (98-107) mmol/L Carbon Dioxide 26 (22-30) mmol/L Anion Gap 11 mmol/L BUN 19 (9-20) mg/dL Creatinine 0.80 (0.66-1.25) mg/dL Est GFR (CKD-EPI)AfAm >90 (>60 ml/min/1.73 sqM) Est GFR (CKD-EPI)NonAf 87 (>60 ml/min/1.73 sqM) Glucose 164 H (74-99) mg/dL Calcium 9.4 (8.4-10.2) mg/dL Total Bilirubin 0.8 (0.2-1.3) mg/dL AST 32 (17-59) U/L ALT 10 (4-49) U/L Alkaline Phosphatase 55 (38-126) U/L Total Protein 7.2 (6.3-8.2) g/dL Albumin 4.5 (3.5-5.0) g/dL Amylase 87 (30-110) U/L Lipase 287 (23-300) U/L Urine Color Yellow Urine Appearance Clear (Clear) Urine pH 5.5 (5.0-8.0) Ur Specific [place] 1.024 (1.001-1.035) Urine Protein 1+ H (Negative) Urine Glucose (UA) 1+ H (Negative) Urine Ketones 1+ H (Negative) Urine Blood Trace H (Negative) Urine Nitrite Negative (Negative) Urine Bilirubin Negative (Negative) Urine Urobilinogen <2.0 (<2.0) mg/dL Ur Leukocyte Esterase Negative (Negative) Urine RBC 2 (0-5) /hpf Urine WBC <1 (0-5) /hpf Urine Mucus Rare H (None) /hpf Disposition Clinical Impression: Constipation Disposition: HOME SELF-CARE Condition: Fair Instructions (If sedation given, give patient instructions): Constipation (DC) Is patient prescribed a controlled substance at d/c from ED?: No Referrals: Dean Garrett MD [Primary Care Provider] - 1-2 days
--- NOTE | 2019-05-09 23:49 | XR ---
EXAMINATION TYPE: XR KUB DATE OF EXAM: 05/09/2019 COMPARISON: 03/03/2013 HISTORY: Flank pain TECHNIQUE: 2 views FINDINGS: 2 views upright show no sign of intestinal obstruction or pneumoperitoneum. Fecal pattern i s normal. Lung bases are clear. There are no pathologic calcifications over the kidneys. There are ph leboliths in the pelvis. IMPRESSION: Nonacute abdomen. No change compared to old exam.
[2019-05-10 00:10] LABS: Basophils # (A) 0.1 k/uL (0-0.2); Basophils % (A) 1 %; Eosinophils # (A) 0.1 k/uL (0-0.7); Eosinophils % (A) 1 %; HGB 13.1 gm/dL (13.0-17.5); Lymphocytes # (A) 1.4 k/uL (1.0-4.8); Lymphocytes % (A) 14 %; MCH 30.3 pg (25.0-35.0); MCHC 34.5 g/dL (31.0-37.0); MCV 87.8 fL (80.0-100.0); Mean Platelet Volume 8.4; Monocytes # (A) 0.7 k/uL (0-1.0); Monocytes % (A) 7 %; Neutrophils # (A) 7.7 k/uL (1.3-7.7); Neutrophils % (A) 77 %; Platelet Count 221 k/uL (150-450); RBC 4.33 m/uL (4.30-5.90); RDW 12.8 % (11.5-15.5)
[2019-05-10 00:25] LABS: ALT 10 U/L (4-49); AST 32 U/L (17-59); African American GFR (CKD) >90 (>60 ml/min/1.73 sqM); Albumin 4.5 g/dL (3.5-5.0); Alkaline Phosphatase 55 U/L (38-126); Amylase 87 U/L (30-110); Anion Gap 11 mmol/L; Blood Urea Nitrogen 19 mg/dL (9-20); Calcium 9.4 mg/dL (8.4-10.2); Carbon Dioxide 26 mmol/L (22-30); Chloride 100 mmol/L (98-107); Glucose 164 mg/dL (74-99); Non-African American GFR(CKD) 87 (>60 ml/min/1.73 sqM); Potassium 4.2 mmol/L (3.5-5.1); Sodium 137 mmol/L (137-145); Total Bilirubin 0.8 mg/dL (0.2-1.3); Total Protein 7.2 g/dL (6.3-8.2)
[2019-05-10 00:52] LABS: Appearance,Urine Clear (Clear); Bilirubin,Urine Negative (Negative); Blood,Urine Trace (Negative); Color,Urine Yellow; Glucose,Urine (UA) 1+ (Negative); Ketones,Urine 1+ (Negative); Leukocyte Esterase,Urine Negative (Negative); Mucus,Urine Rare /hpf; Nitrite,Urine Negative (Negative); PH, Urine 5.5 (5.0-8.0); Protein,Urine 1+ (Negative); RBC,Urine 2 /hpf (0-5); Specific Gravity,Urine 1.024 (1.001-1.035); Urobilinogen,Urine <2.0 mg/dL (<2.0); WBC,Urine <1 /hpf (0-5)
[2019-05-10] MEDS ORDERED: PEG 3350-NA SULF,BICARB,CL/KCL 4,000 ML BOTTLE PO ONE (01:38)
[2019-05-10 02:13] VITALS: BP 140/80; PULSE 70; RESP 16; TEMP 98.1
== END 2019-05-10 02:12 | disposition home or self-care (01) ==
LOC: EC 22:48
DX: K59.00 Constipation, unspecified (principal); E11.9 Type 2 diabetes mellitus without complications; E78.5 Hyperlipidemia, unspecified; I10 Essential (primary) hypertension; G20 Parkinson's disease; Z79.1 Long term (current) use of non-steroidal anti-inflammatories (NSAID); Z79.82 Long term (current) use of aspirin; Z79.84 Long term (current) use of oral hypoglycemic drugs; Z79.899 Other long term (current) drug therapy; Z88.0 Allergy status to penicillin; Z87.891 Personal history of nicotine dependence
CPT/HCPCS: 36415; 74018; 80053; 81001; 82150; 83690; 85025; 99284

== ENCOUNTER → 2019-06-03 | Outpatient (CLI) | payer MEDICARE | END | disposition home or self-care (01) | LOC: LABWHC1 12:06 | PROVIDERS: ATTEND Internal Medicine Endocrinology, Diabetes & Metabolism | DX: Z53.9 Procedure and treatment not carried out, unspecified reason (principal) ==

== ENCOUNTER → 2019-07-23 | Day surgery (SDC) | payer MEDICARE ==
[2019-07-21 11:31] VITALS: BMI 29.6
[~2019-07-23] MED LIST: LACTATED RINGERS 1,000 ML IV SCH; LIDOCAINE 1% (10MG/ML) FOR IV START INTRADERMA PRN; LIDOCAINE 1% INJ 10MG/ML (20 ML MDV) ONE; PROPOFOL 10 MG/ML 20 ML VIAL IV ONE
[2019-07-23 07:54] VITALS: RESP 17; TEMP 97
[2019-07-23 08:11] LABS: Glucose,Whole Blood 134 mg/dL (75-99)
--- NOTE | 2019-07-23 08:14 | P.PCN ---
Date of Procedure: 07/23/19 Procedure(s) Performed: BRIEF HISTORY: Patient is a 79-year-old pleasant male scheduled for an elective colonoscopy as a part of screening for colorectal neoplasia. PROCEDURE PERFORMED: Colonoscopy with snare polypectomy. PREOPERATIVE DIAGNOSIS: Screening for colon cancer. IV sedation per Anesthesia. PROCEDURE: After informed consent was obtained, the patient, was brought into the endoscopy unit. IV sedation was administered by Anesthesia under continuous monitoring. Digital rectal examination was normal. Initially the Olympus CF-160 flexible video colonoscope was then inserted in the rectum, gradually advanced into the cecum without any difficulty. Careful examination was performed as the scope was gradually being withdrawn. Ileocecal valve and the appendiceal orifice were visualized and appeared normal. Prep was excellent. Mucosa of the cecum, ascending colon, transverse colon, appeared normal. In the descending colon there was a 7-8 mm polyp that was removed by snare polypectomy. Rest of the descending colon, sigmoid colon, and rectum appeared normal. Retroflexion was performed in the rectum and no lesions were seen. The patient tolerated the procedure well. IMPRESSION: 7-8 mm descending colon polyp serous posterior polypectomy Rest of the colon appeared normal RECOMMENDATIONS: Findings of this examination were discussed with the patient as well as his family. He was advised to follow with the biopsy results. If the biopsy shows an adenoma he can have a repeat colonoscopy in 3-5 years
[2019-07-23 08:30] VITALS: BP 160/90; PULSE 68
== END ==
LOC: ORWHC2ENDO 07:26
PROVIDERS: ATTEND Internal Medicine Gastroenterology
DX: Z12.11 Encounter for screening for malignant neoplasm of colon (principal); D12.4 Benign neoplasm of descending colon; I10 Essential (primary) hypertension; E78.5 Hyperlipidemia, unspecified; Z87.891 Personal history of nicotine dependence; E11.9 Type 2 diabetes mellitus without complications; E07.9 Disorder of thyroid, unspecified; G20 Parkinson's disease; R41.3 Other amnesia; Z79.1 Long term (current) use of non-steroidal anti-inflammatories (NSAID); Z79.84 Long term (current) use of oral hypoglycemic drugs; Z79.82 Long term (current) use of aspirin; Z79.899 Other long term (current) drug therapy; Z88.0 Allergy status to penicillin
CPT/HCPCS: 88305; 45385; J2001; J2704

== ENCOUNTER → 2019-12-31 | Outpatient (CLI) | payer MEDICARE ==
[2019-12-31 12:26] LABS: HCT 43.7 % (39.0-53.0); MCHC 31.9 g/dL (31.0-37.0); MCV 90.7 fL (80.0-100.0); Mean Platelet Volume 8.3; Platelet Count 221 k/uL (150-450); RBC 4.82 m/uL (4.30-5.90); RDW 13.1 % (11.5-15.5)
[2019-12-31 20:19] LABS: Prostate Specific Antigen 1.8 ng/mL (0.0-6.5)
== END | disposition home or self-care (01) ==
LOC: LABWHC1 10:57
PROVIDERS: ATTEND Internal Medicine Endocrinology, Diabetes & Metabolism
DX: E29.1 Testicular hypofunction (principal)
CPT/HCPCS: 36415; 84153; 84403; 85027

== ENCOUNTER → 2020-06-08 | Outpatient (CLI) | payer MEDICARE ==
[2020-06-08 11:34] LABS: HCT 42.9 % (39.0-53.0); HGB 13.9 gm/dL (13.0-17.5); MCH 29.3 pg (25.0-35.0); MCHC 32.3 g/dL (31.0-37.0); MCV 90.8 fL (80.0-100.0); Mean Platelet Volume 8.5; Platelet Count 223 k/uL (150-450); RBC 4.73 m/uL (4.30-5.90); RDW 13.2 % (11.5-15.5); Reticulocyte % 2.2 % (0.5-2.0); WBC 6.7 k/uL (3.8-10.6)
[2020-06-08 19:16] LABS: Hemoglobin A1C 7.2 % (4.0-6.0)
[2020-06-08 20:14] LABS: % Iron Saturation 17.15 (15.00-50.00); African American GFR (CKD) 83.8 (60.0-200.0); Albumin 5.1 g/dL (3.80-4.90); Albumin/Globulin Ratio 2.68 (1.60-3.17); Anion Gap 9.6 mmol/L (4.00-12.00); Calcium 9.7 mg/dL (8.7-10.3); Carbon Dioxide 30.4 mmol/L (21.6-31.8); Globulin 1.9 g/dL (1.6-3.3); Non-African American GFR(CKD) 72.3 (60.0-200.0); Potassium 4.7 mmol/L (3.5-5.5); Total Bilirubin 0.8 mg/dL (0.2-1.2)
[2020-06-08 20:20] LABS: T4, Free (Free Thyroxine) 1.2 ng/dL (0.80-1.80)
[2020-06-08 20:22] LABS: Ferritin 48.6 ng/mL (22.0-322.0)
[2020-06-08 20:47] LABS: Folate, Serum 15.9 ng/mL
[2020-06-12 08:12] LABS: Vit B1(Thiamine) 71 ug/L (38-122)
[2020-06-14 07:18] LABS: Nicotinamide 19 ng/mL; Nicotinic Acid None Detected; Nicotinuric Acid None Detected
== END | disposition home or self-care (01) ==
LOC: LABWHC1 10:58
PROVIDERS: ATTEND Psychiatry & Neurology Pain Medicine
DX: Z51.81 Encounter for therapeutic drug level monitoring (principal); Z79.899 Other long term (current) drug therapy; D64.9 Anemia, unspecified
CPT/HCPCS: 36415; 80053; 82533; 82550; 82607; 82626; 82668; 82728; 82746; 83036; 83540; 83550; 84207; 84403; 84425; 84439; 84443; 84466; 84481; 84591; 85027; 85045

== ENCOUNTER → 2020-06-21 | Outpatient (CLI) | payer MEDICARE ==
--- NOTE | 2020-06-21 21:34 | CT ---
EXAMINATION TYPE: CT brain wo/w con DATE OF EXAM: 06/21/2020 COMPARISON: CT brain December 14, 2018 HISTORY: Dementia, history of deep brain stimulator. CT DLP: 2163.2 mGycm Automated exposure control for dose reduction was used. CONTRAST: CT scan of the head is performed without and with IV Contrast, patient injected with 100 mL of Isovue 300. FINDINGS: Bilateral frontal radha holes with stimulator leads terminating just anterior to the superio r portion of the midbrain redemonstrated. Noncontrast images show no acute intracranial hemorrhage or midline shift.. Moderate diffuse ventricu lar and sulcal prominence redemonstrated. Mild low attenuation in the deep and periventricular white matter. Postcontrast images show no suspicious enhancing masses. There is completely opacified left m axillary sinus with central density and sclerotic bony wall thickening redemonstrated. Tiny mucous r etention cyst or polyp in the lateral right maxillary sinus redemonstrated. Mild/moderate mucosal thi ckening involving ethmoid sinuses bilaterally more prominent from prior. The globes remain intact yoel aterally. IMPRESSION: Stimulators redemonstrated. Position grossly stable. Moderate diffuse cerebral atrophy an d mild to moderate chronic small vessel ischemic change demonstrated without significant interval debbie nge. Paranasal sinus disease redemonstrated, increased prominence ethmoid sinus level noted.
== END | disposition home or self-care (01) ==
LOC: RADCTMAIN 16:57
PROVIDERS: ATTEND Psychiatry & Neurology Neurology
DX: G31.9 Degenerative disease of nervous system, unspecified (principal); I67.82 Cerebral ischemia; F02.80 Dementia in other diseases classified elsewhere, unspecified severity, without behavioral disturbance, psychotic disturbance, mood disturbance, and anxiety; G91.2 (Idiopathic) normal pressure hydrocephalus; Z96.82 Presence of neurostimulator; Z01.818 Encounter for other preprocedural examination
CPT/HCPCS: 82565; 84520; 70470; 36415; Q9967

== ENCOUNTER → 2020-08-17 | Outpatient (CLI) | payer MEDICARE ==
[2020-08-17 19:40] LABS: Basophils # (A) 0.08 X 10*3/uL (0.00-0.10); Basophils % (A) 1.3 %; Eosinophils # (A) 0.24 X 10*3/uL (0.04-0.35); Eosinophils % (A) 3.9 %; HCT 40.7 % (39.6-50.0); HGB 13.1 g/dL (13.0-17.0); Lymphocytes # (A) 1.46 X 10*3/uL (0.90-5.00); MCH 29.8 pg (27.0-32.0); MCHC 32.2 g/dL (32.0-37.0); MCV 92.7 fL (80.0-97.0); Monocytes # (A) 0.65 X 10*3/uL (0.20-1.00); Monocytes % (A) 10.7 %; Neutrophils # (A) 3.65 X 10*3/uL (1.80-7.70); Neutrophils % (A) 59.9 %; Platelet Count 238 X 10*3/uL (140-440); RBC 4.39 X 10*6/uL (4.40-5.60); RDW 12.4 % (11.5-14.5); WBC 6.09 X 10*3/uL (4.50-10.00)
[2020-08-17 20:18] LABS: % Iron Saturation 22.06 (15.00-50.00); Chol/HDL Ratio 4.26; LDL Cholesterol,Calculated 95.6 mg/dL (0.0-131.0); VLDL Calculation 28.4 mg/dL (5.00-40.00)
[2020-08-17 20:26] LABS: Prostate Specific Antigen 1.4 ng/mL (0.0-6.5)
[2020-08-17 20:53] LABS: Hemoglobin A1C 7.8 % (4.0-6.0)
== END | disposition home or self-care (01) ==
LOC: LABWHC1 10:17
PROVIDERS: ATTEND Family Medicine
DX: Z00.00 Encounter for general adult medical examination without abnormal findings (principal); E11.9 Type 2 diabetes mellitus without complications; N40.0 Benign prostatic hyperplasia without lower urinary tract symptoms
CPT/HCPCS: 36415; 80061; 83036; 83540; 83550; 84153; 84443; 85025

== ENCOUNTER → 2020-09-27 | Outpatient (CLI) | payer MEDICARE ==
--- NOTE | 2020-09-27 10:49 | XR ---
EXAMINATION TYPE: XR chest 2V DATE OF EXAM: 09/27/2020 COMPARISON: 12/14/2018 TECHNIQUE: PA and lateral views submitted. HISTORY: Pain FINDINGS: The lungs are clear and there is no pneumothorax, pleural effusion, or focal pneumonia. Stimulator devices are seen overlying the chest. There is a 11 mm nodule right upper lobe. Hypertrophic and dege nerative change of the spine. Arthropathy of the AC joint. Sclerotic density overlying the right tomasz ral head likely chronic. IMPRESSION: 1. 11 mm right upper lobe pulmonary nodule. Recommend CT of the chest.
[2020-09-27 11:05] LABS: Partial Thromboplastin Time 24.8 sec (22.0-30.0); Prothrombin Time 10.3 sec (9.0-12.0)
[2020-09-27 11:49] LABS: Appearance,Urine Clear (Clear); Bilirubin,Urine Negative (Negative); Blood,Urine Negative (Negative); Color,Urine Yellow; Glucose,Urine (UA) Negative (Negative); Ketones,Urine Negative (Negative); Leukocyte Esterase,Urine Negative (Negative); Nitrite,Urine Negative (Negative); Protein,Urine Negative (Negative); Specific Gravity,Urine 1.017 (1.001-1.035); Urobilinogen,Urine <2.0 mg/dL (<2.0)
[2020-09-27 23:10] LABS: Basophils # (A) 0.06 X 10*3/uL (0.00-0.10); Basophils % (A) 0.8 %; Eosinophils # (A) 0.25 X 10*3/uL (0.04-0.35); Eosinophils % (A) 3.3 %; HCT 40.5 % (39.6-50.0); HGB 13.1 g/dL (13.0-17.0); Lymphocytes # (A) 1.41 X 10*3/uL (0.90-5.00); Lymphocytes % (A) 18.6 %; MCH 29.6 pg (27.0-32.0); MCHC 32.3 g/dL (32.0-37.0); MCV 91.6 fL (80.0-97.0); Mean Platelet Volume 10.9 fL (9.5-12.2); Monocytes # (A) 0.66 X 10*3/uL (0.20-1.00); Monocytes % (A) 8.7 %; Neutrophils % (A) 68.3 %; Platelet Count 242 X 10*3/uL (140-440); RBC 4.42 X 10*6/uL (4.40-5.60); RDW 12.5 % (11.5-14.5)
[2020-09-28 04:09] LABS: African American GFR (CKD) 74.1 (60.0-200.0); Albumin 4.9 g/dL (3.80-4.90); Albumin/Globulin Ratio 2.45 (1.60-3.17); Anion Gap 14.4 mmol/L (4.00-12.00); BUN/Creat Ratio 15.45 Ratio (12.00-20.00); Calcium 9.1 mg/dL (8.7-10.3); Carbon Dioxide 26.6 mmol/L (21.6-31.8); Potassium 4.6 mmol/L (3.5-5.5); Total Bilirubin 0.8 mg/dL (0.2-1.2); Total Protein 6.9 g/dL (6.2-8.2)
== END | disposition home or self-care (01) ==
LOC: LABWHC1 09:49
PROVIDERS: ATTEND Neurological Surgery
DX: G20 Parkinson's disease (principal); R91.1 Solitary pulmonary nodule; R94.31 Abnormal electrocardiogram [ECG] [EKG]; I25.2 Old myocardial infarction; Z45.42 Encounter for adjustment and management of neurostimulator; Z96.89 Presence of other specified functional implants; Z79.01 Long term (current) use of anticoagulants
CPT/HCPCS: 36415; 71046; 80053; 81003; 85025; 85610; 85730; 93005

== ENCOUNTER → 2020-10-13 | Outpatient (CLI) | payer MEDICARE ==
--- NOTE | 2020-10-14 11:46 | CT ---
EXAMINATION TYPE: CT chest wo con DATE OF EXAM: 10/13/2020 COMPARISON: Chest x-ray 09/27/2020 HISTORY: Abnormal chest xray. CT DLP: 479 mGycm. Automated Exposure Control for Dose Reduction was Utilized. TECHNIQUE: CT scan of the thorax is performed without IV contrast. FINDINGS: LUNGS: The lungs are grossly clear, there is no concerning parenchymal mass or nodule identified. T here is no pleural effusion or pneumothorax seen. The tracheobronchial tree is patent. MEDIASTINUM: Lack of IV contrast is noted to limit evaluation for mediastinal and especially hilar ad enopathy. There are no definitive greater than 1 cm hilar or mediastinal lymph nodes. No cardiomega ly or pericardial effusion is seen. OTHER: Generators are again noted over the pectoral regions. There are extensive coronary artery calc ifications, there is a small hiatal hernia. Dependent high attenuation within the gallbladder likely represents gallstone IMPRESSION: No evident pulmonary nodule. Cholelithiasis. Hiatal hernia. Coronary artery disease.
== END | disposition home or self-care (01) ==
LOC: RADCTMAIN 16:58
PROVIDERS: ATTEND Family Medicine
DX: I25.10 Atherosclerotic heart disease of native coronary artery without angina pectoris (principal); K44.9 Diaphragmatic hernia without obstruction or gangrene; K80.20 Calculus of gallbladder without cholecystitis without obstruction
CPT/HCPCS: 71250

== ENCOUNTER → 2020-11-09 | Outpatient (CLI) | payer MEDICARE ==
[2020-11-09 17:09] LABS: % Iron Saturation 23.38 (15.00-50.00)
[2020-11-09 17:18] LABS: Ferritin 56.7 ng/mL (22.0-322.0)
== END | disposition home or self-care (01) ==
LOC: LABWHC1 10:22
PROVIDERS: ATTEND Psychiatry & Neurology Pain Medicine
DX: D50.9 Iron deficiency anemia, unspecified (principal)
CPT/HCPCS: 36415; 82728; 83540; 83550; 84466

== ENCOUNTER 2022-12-04 19:13 | Inpatient (IN) | payer MEDICARE ==
[2022-12-04] MEDS ORDERED: SODIUM CHLORIDE 0.9% 1,000 ML IV STA (19:58)
--- NOTE | 2022-12-04 20:25 | ED ---
Altered Mental Status HPI - General Chief Complaint: Altered Mental Status Stated Complaint: Alt mental Time Seen by Provider: 12/04/22 19:50 Source: family, EMS, RN notes reviewed, old records reviewed, Caregiver Mode of arrival: EMS Limitations: altered mental status - History of Present Illness Initial Comments: This is an 82-year-old male to the emergency department today. He presents today for evaluation of altered mental status significant. Patient does suffer from Parkinson's and has baseline altered mental status but is not acting appropriately per family. Not participating his activities of daily living that he normally does. Patient's mentation is off his been throughout the day. Patient is able to respond here in the ER and move all extremities and speak without significant neurological finding. Patient does have symptoms that seem to be getting mildly worse over the last few days per family member at bedside after patient had neurostimulator battery adjustment. Patient is unable to have complaints himself MD Complaint: altered mental status, decreased responsiveness, weakness -: days(s) Severity: moderate Consistency of Symptoms: getting worse Context: history of similar presentation Associated Symptoms: weakness - Related Data Home Medications Medication Instructions Recorded Confirmed Aspirin EC [Ecotrin Low Dose] 81 mg PO HS 09/04/17 12/04/22 Donepezil [Aricept] 10 mg PO HS 09/04/17 12/04/22 Losartan Potassium 50 mg PO HS 09/04/17 12/04/22 Simvastatin [Zocor] 20 mg PO HS 09/04/17 12/04/22 metFORMIN HCL [Glucophage] 1,000 mg PO BID 09/04/17 12/04/22 Glimepiride [Amaryl] 1 mg PO BID 12/14/18 12/04/22 Memantine [Namenda] 5 mg PO BID 07/21/19 12/04/22 Colchicine [Colcrys] 0.6 mg PO BID 12/04/22 12/04/22 Mirabegron [Myrbetriq] 50 mg PO DAILY 12/04/22 12/04/22 methylPREDNISolone Dose Pack See Taper PO DIRECTED 12/04/22 12/04/22 [Medrol Dose Pack] Carbidopa-Levodopa ER 50-200Mg 1 tab PO BID 12/05/22 12/05/22 [Sinemet CR 50-200 mg] Allergies Allergy/AdvReac Type Severity Reaction Status Date / Time Penicillins Allergy Rash/Hives Verified 12/04/22 22:56 Review of Systems ROS Statement: Those systems with pertinent positive or pertinent negative responses have been documented in the HPI. ROS Other: All systems not noted in ROS Statement are negative. Past Medical History Past Medical History: Diabetes Mellitus, Hyperlipidemia, Hypertension, Memory Impairment, Musculoskeletal Disorder Additional Past Medical History / Comment(s): parkinson's, parathyroid dysfunction, kidney stones History of Any Multi-Drug Resistant Organisms: None Reported Additional Past Surgical History / Comment(s): parathyroid cyst removed, deep brain stimulation, colonoscopy Past Anesthesia/Blood Transfusion Reactions: No Reported Reaction Past Psychological History: No Psychological Hx Reported Past Alcohol Use History: Rare Past Drug Use History: None Reported - Past Family History Mother Family Medical History: Dementia General Exam Limitations: altered mental status, physical limitation General appearance: alert, anxious, lethargic Head exam: Present: atraumatic, normocephalic, normal inspection Eye exam: Present: normal appearance, PERRL, EOMI. Absent: scleral icterus, conjunctival injection, periorbital swelling ENT exam: Present: normal exam, mucous membranes dry Neck exam: Present: normal inspection. Absent: tenderness, meningismus, lymphadenopathy Respiratory exam: Present: normal lung sounds bilaterally. Absent: respiratory distress, wheezes, rales, rhonchi, stridor Cardiovascular Exam: Present: regular rate, normal rhythm, normal heart sounds. Absent: systolic murmur, diastolic murmur, rubs, gallop, clicks GI/Abdominal exam: Present: soft, normal bowel sounds. Absent: distended, tenderness, guarding, rebound, rigid Extremities exam: Present: normal inspection, full ROM, normal capillary refill. Absent: tenderness, pedal edema, joint swelling, calf tenderness Back exam: Present: normal inspection Neurological exam: Present: alert, oriented X3, CN II-XII intact Psychiatric exam: Present: normal affect, normal mood Skin exam: Present: warm, dry, intact, normal color. Absent: rash Course Vital Signs 12/04/22 12/05/22 12/05/22 19:26 00:00 04:00 Temperature 98.5 F 97.9 F Pulse Rate 76 73 78 Pulse Rate [ Pulse Oximetery ] Respiratory 16 18 20 Rate Blood Pressure 147/52 144/74 147/78 Blood Pressure [Left Arm] O2 Sat by Pulse 93 L 100 96 Oximetry 12/05/22 12/05/22 12/05/22 04:20 05:00 06:12 Temperature Pulse Rate 88 73 64 Pulse Rate [ Pulse Oximetery ] Respiratory 12 18 18 Rate Blood Pressure 133/101 150/83 145/85 Blood Pressure [Left Arm] O2 Sat by Pulse 92 L Oximetry 12/05/22 12/05/22 12/05/22 06:55 07:45 11:49 Temperature Pulse Rate 65 58 L Pulse Rate [ Pulse Oximetery ] Respiratory 18 17 19 Rate Blood Pressure 132/81 140/82 Blood Pressure [Left Arm] O2 Sat by Pulse 94 L 95 Oximetry 12/05/22 12/05/22 12/05/22 17:17 19:55 20:00 Temperature 97.9 F Pulse Rate 72 66 Pulse Rate [ 67 Pulse Oximetery ] Respiratory 18 16 15 Rate Blood Pressure 139/72 125/71 Blood Pressure 188/93 [Left Arm] O2 Sat by Pulse 96 97 98 Oximetry - Reevaluation(s) Reevaluation #1: 12/04/22 23:15 Medical records reviewed Reevaluation #2: 12/04/22 23:19 Patient symptoms are mildly improving here in the ER Reevaluation #3: 12/04/22 23:19 Patient informed of results questions answered Reevaluation #4: 12/04/22 23:20 Was pt. sent in by a medical professional or institution? @ -no Did you speak to anyone other than the patient for history? @ -no Did you review nursing and triage notes? @ -agree Were old charts reviewed? @ -yes Differential Diagnosis? @ -prior EKG interpreted by me (3pts min.)? @ -yes X-rays interpreted by me (1pt min.)? @ -yes CT interpreted by me (1pt min.)? @ -no U/S interpreted by me (1pt. min.)? @ -no What testing was considered but not performed? (CT, X-rays, U/S, labs)? Why? @ -no What meds were considered but not given? Why? @ -no Did you discuss the management of the patient with other professionals? @ -no Did you reconcile home meds? @ -no Was smoking cessation discussed for >3mins.? @ -no Was critical care preformed (if so, how long)? @ -no Were there social determinants of health that impacted care today? How? (Homelessness, low income, unemployed, alcoholism, drug addiction, transportation, low edu. Level, literacy, decrease access to med. care, senior care, rehab)? @ -no Was there de-escalation of care discussed even if they declined? (Discuss DNR or withdrawal of care, Hospice)? @ -no What co-morbidities impacted this encounter? (DM, HTN, Smoking, COPD, CAD, Cancer, CVA, Hep., AIDS, mental health diagnosis, sleep apnea, morbid obesity)? @ -none Was patient admitted / discharged? @ -82 male to the emergency department for altered mental status . Patient is found to have of urinary tract infection with significant dehydration and elevated white blood cell count. Patient persistent weakness with nausea and vomiting. Patient will be admitted for IV hydration IV antibiotics Admitted Undiagnosed new problem with uncertain prognosis? @ -no Drug Therapy requiring intensive monitoring for toxicity (Heparin, Nitro, Insulin, Cardizem)? @ -no Were any procedures done? @ -no Diagnosis/symptom? @ -Altered mental status, fever, UTI Acute, or Chronic, or Acute on Chronic? @ -acute Uncomplicated (without systemic symptoms) or Complicated (systemic symptoms)? @ -complicated Side effects of treatment? @ -no Exacerbation, Progression, or Severe Exacerbation] @ -no Poses a threat to life or bodily function? @ -yes sepsis Reevaluation #5: 12/04/22 23:20 Differential Altered Mental Status: Hypoglycemia, DKA, hypercapnia, ETOH, overdose, CO poisoning, trauma, myxedema coma, HTN encephalopathy, infection, encephalitis, psychosis, intercranial hemorrhage, hepatic encephalopathy, meningitis, CVA, this is not meant to be an all-inclusive list - Consultations Consultation #1: Spoke with sound who agrees to admit Medical Decision Making - Medical Decision Making 82 male to the emergency department for altered mental status . Patient is found to have of urinary tract infection with significant dehydration and elevated white blood cell count. Patient persistent weakness with nausea and vomiting. Patient will be admitted for IV hydration IV antibiotics patient does have significant weakness and persistent altered mental status so does appear to be improving with hydration and fever control - Lab Data Result diagrams: 12/09/22 06:48 12/08/22 09:08 Lab Results 07/19/23 07/19/23 07/19/23 Range/Units 21:08 21:08 21:08 WBC 18.1 H (3.8-10.6) k/uL RBC 4.19 L (4.30-5.90) m/uL Hgb 11.2 L (13.0-17.5) gm/dL Hct 37.5 L (39.0-53.0) % MCV 89.5 (80.0-100.0) fL MCH 26.7 (25.0-35.0) pg MCHC 29.8 L (31.0-37.0) g/dL RDW 12.9 (11.5-15.5) % Plt Count 224 (150-450) k/uL MPV 7.9 Immature Gran % (Auto) % Absolute Nucleated RBC % Neutrophils % % Neutrophils % (Manual) 80 % Band Neuts % (Manual) 3 % Lymphocytes % % Lymphocytes % (Manual) 9 % Monocytes % % Monocytes % (Manual) 8 % Eosinophils % % Basophils % % Immature Gran # X 10*3/uL Neutrophils # (1.3-7.7) k/uL Neutrophils # (Manual) 15.00 H (1.3-7.7) k/uL Lymphocytes # (1.0-4.8) k/uL Lymphocytes # (Manual) 1.63 (1.0-4.8) k/uL Monocytes # (0-1.0) k/uL Monocytes # (Manual) 1.45 H (0-1.0) k/uL Eosinophils # (0-0.7) k/uL Basophils # (0-0.2) k/uL Nucleated RBCs 0 (0-0) /100 WBC NRBC/100 WBC Diff (0.00-0.01) X 10*3/uL Manual Slide Review Performed Sodium 131 L (137-145) mmol/L Potassium 5.0 (3.5-5.1) mmol/L Chloride 97 L (98-107) mmol/L Carbon Dioxide 20 L (22-30) mmol/L Anion Gap 14 mmol/L BUN 28 H (9-20) mg/dL Creatinine 0.83 (0.66-1.25) mg/dL Est GFR (CKD-EPI) (>=60) Est GFR (CKD-EPI)AfAm >90 (>60 ml/min/1.73 sqM) Est GFR (CKD-EPI)NonAf 83 (>60 ml/min/1.73 sqM) BUN/Creatinine Ratio (12.00-20.00) Ratio Glucose 221 H (74-99) mg/dL POC Glucose (mg/dL) (70-110) mg/dL POC Glu Equipment Installer ID Estimated Ave Glu mg/dL mg/dL Hemoglobin A1c (<=6.0) % Lactic Ac Sepsis Rflx Plasma Lactic Acid Jamar 3.2 H* (0.7-2.0) mmol/L Calcium 8.5 (8.4-10.2) mg/dL Phosphorus 4.5 (2.5-4.5) mg/dL Magnesium 1.3 L (1.6-2.3) mg/dL Total Bilirubin 1.2 (0.2-1.3) mg/dL AST 27 (17-59) U/L ALT 18 (4-49) U/L Alkaline Phosphatase 56 (38-126) U/L Troponin I (0.000-0.034) ng/mL Total Protein 6.8 (6.3-8.2) g/dL Albumin 3.9 (3.5-5.0) g/dL Urine Color Urine Appearance (Clear) Urine pH (5.0-8.0) Ur Specific [place] (1.001-1.035) Urine Protein (Negative) Urine Glucose (UA) (Negative) Urine Ketones (Negative) Urine Blood (Negative) Urine Nitrite (Negative) Urine Bilirubin (Negative) Urine Urobilinogen (<2.0) mg/dL Ur Leukocyte Esterase (Negative) Urine RBC (0-5) /hpf Urine WBC (0-5) /hpf Ur Squamous Epith Cells (0-4) /hpf Urine Bacteria (None) /hpf Urine Mucus (None) /hpf 12/04/22 12/04/22 12/04/22 Range/Units 21:10 21:46 21:54 WBC (3.8-10.6) k/uL RBC (4.30-5.90) m/uL Hgb (13.0-17.5) gm/dL Hct (39.0-53.0) % MCV (80.0-100.0) fL MCH (25.0-35.0) pg MCHC (31.0-37.0) g/dL RDW (11.5-15.5) % Plt Count (150-450) k/uL MPV Immature Gran % (Auto) % Absolute Nucleated RBC % Neutrophils % % Neutrophils % (Manual) % Band Neuts % (Manual) % Lymphocytes % % Lymphocytes % (Manual) % Monocytes % % Monocytes % (Manual) % Eosinophils % % Basophils % % Immature Gran # X 10*3/uL Neutrophils # (1.3-7.7) k/uL Neutrophils # (Manual) (1.3-7.7) k/uL Lymphocytes # (1.0-4.8) k/uL Lymphocytes # (Manual) (1.0-4.8) k/uL Monocytes # (0-1.0) k/uL Monocytes # (Manual) (0-1.0) k/uL Eosinophils # (0-0.7) k/uL Basophils # (0-0.2) k/uL Nucleated RBCs (0-0) /100 WBC NRBC/100 WBC Diff (0.00-0.01) X 10*3/uL Manual Slide Review Sodium (137-145) mmol/L Potassium (3.5-5.1) mmol/L Chloride (98-107) mmol/L Carbon Dioxide (22-30) mmol/L Anion Gap mmol/L BUN (9-20) mg/dL Creatinine (0.66-1.25) mg/dL Est GFR (CKD-EPI) (>=60) Est GFR (CKD-EPI)AfAm (>60 ml/min/1.73 sqM) Est GFR (CKD-EPI)NonAf (>60 ml/min/1.73 sqM) BUN/Creatinine Ratio (12.00-20.00) Ratio Glucose (74-99) mg/dL POC Glucose (mg/dL) (70-110) mg/dL POC Glu Equipment Installer ID Estimated Ave Glu mg/dL mg/dL Hemoglobin A1c (<=6.0) % Lactic Ac Sepsis Rflx Y Plasma Lactic Acid Jamar (0.7-2.0) mmol/L Calcium (8.4-10.2) mg/dL Phosphorus (2.5-4.5) mg/dL Magnesium (1.6-2.3) mg/dL Total Bilirubin (0.2-1.3) mg/dL AST (17-59) U/L ALT (4-49) U/L Alkaline Phosphatase (38-126) U/L Troponin I <0.012 (0.000-0.034) ng/mL Total Protein (6.3-8.2) g/dL Albumin (3.5-5.0) g/dL Urine Color Yellow Urine Appearance Clear (Clear) Urine pH 5.5 (5.0-8.0) Ur Specific [place] 1.024 (1.001-1.035) Urine Protein Trace H (Negative) Urine Glucose (UA) Negative (Negative) Urine Ketones Negative (Negative) Urine Blood Negative (Negative) Urine Nitrite Positive (Negative) Urine Bilirubin Negative (Negative) Urine Urobilinogen <2.0 (<2.0) mg/dL Ur Leukocyte Esterase Moderate H (Negative) Urine RBC 4 (0-5) /hpf Urine WBC 22 H (0-5) /hpf Ur Squamous Epith Cells <1 (0-4) /hpf Urine Bacteria Many H (None) /hpf Urine Mucus Occasional H (None) /hpf 12/05/22 12/05/22 12/05/22 Range/Units 01:55 11:48 17:12 WBC (3.8-10.6) k/uL RBC (4.30-5.90) m/uL Hgb (13.0-17.5) gm/dL Hct (39.0-53.0) % MCV (80.0-100.0) fL MCH (25.0-35.0) pg MCHC (31.0-37.0) g/dL RDW (11.5-15.5) % Plt Count (150-450) k/uL MPV Immature Gran % (Auto) % Absolute Nucleated RBC % Neutrophils % % Neutrophils % (Manual) % Band Neuts % (Manual) % Lymphocytes % % Lymphocytes % (Manual) % Monocytes % % Monocytes % (Manual) % Eosinophils % % Basophils % % Immature Gran # X 10*3/uL Neutrophils # (1.3-7.7) k/uL Neutrophils # (Manual) (1.3-7.7) k/uL Lymphocytes # (1.0-4.8) k/uL Lymphocytes # (Manual) (1.0-4.8) k/uL Monocytes # (0-1.0) k/uL Monocytes # (Manual) (0-1.0) k/uL Eosinophils # (0-0.7) k/uL Basophils # (0-0.2) k/uL Nucleated RBCs (0-0) /100 WBC NRBC/100 WBC Diff (0.00-0.01) X 10*3/uL Manual Slide Review Sodium (137-145) mmol/L Potassium (3.5-5.1) mmol/L Chloride (98-107) mmol/L Carbon Dioxide (22-30) mmol/L Anion Gap mmol/L BUN (9-20) mg/dL Creatinine (0.66-1.25) mg/dL Est GFR (CKD-EPI) (>=60) Est GFR (CKD-EPI)AfAm (>60 ml/min/1.73 sqM) Est GFR (CKD-EPI)NonAf (>60 ml/min/1.73 sqM) BUN/Creatinine Ratio (12.00-20.00) Ratio Glucose (74-99) mg/dL POC Glucose (mg/dL) 160 H 124 H (70-110) mg/dL POC Glu Equipment Installer ID Rhezie, Emie Rhezie, Emie [address]imated [address] Glu mg/dL mg/dL Hemoglobin A1c (<=6.0) % Lactic Ac Sepsis Rflx Plasma Lactic Acid Jamar 1.1 (0.7-2.0) mmol/L Calcium (8.4-10.2) mg/dL Phosphorus (2.5-4.5) mg/dL Magnesium (1.6-2.3) mg/dL Total Bilirubin (0.2-1.3) mg/dL AST (17-59) U/L ALT (4-49) U/L Alkaline Phosphatase (38-126) U/L Troponin I (0.000-0.034) ng/mL Total Protein (6.3-8.2) g/dL Albumin (3.5-5.0) g/dL Urine Color Urine Appearance (Clear) Urine pH (5.0-8.0) Ur Specific [place] (1.001-1.035) Urine Protein (Negative) Urine Glucose (UA) (Negative) Urine Ketones (Negative) Urine Blood (Negative) Urine Nitrite (Negative) Urine Bilirubin (Negative) Urine Urobilinogen (<2.0) mg/dL Ur Leukocyte Esterase (Negative) Urine RBC (0-5) /hpf Urine WBC (0-5) /hpf Ur Squamous Epith Cells (0-4) /hpf Urine Bacteria (None) /hpf Urine Mucus (None) /hpf 12/05/22 12/06/22 12/06/22 Range/Units 21:55 06:23 06:23 WBC 8.9 (3.8-10.6) k/uL RBC 4.16 L (4.30-5.90) m/uL Hgb 13.1 (13.0-17.5) gm/dL Hct 38.2 L (39.0-53.0) % MCV 91.8 (80.0-100.0) fL MCH 31.5 (25.0-35.0) pg MCHC 34.4 (31.0-37.0) g/dL RDW 12.9 (11.5-15.5) % Plt Count 215 (150-450) k/uL MPV 9.3 Immature Gran % (Auto) % Absolute Nucleated RBC % Neutrophils % 83 % Neutrophils % (Manual) % Band Neuts % (Manual) % Lymphocytes % 8 % Lymphocytes % (Manual) % Monocytes % 6 % Monocytes % (Manual) % Eosinophils % 2 % Basophils % 0 % Immature Gran # X 10*3/uL Neutrophils # 7.4 (1.3-7.7) k/uL Neutrophils # (Manual) (1.3-7.7) k/uL Lymphocytes # 0.7 L (1.0-4.8) k/uL Lymphocytes # (Manual) (1.0-4.8) k/uL Monocytes # 0.5 (0-1.0) k/uL Monocytes # (Manual) (0-1.0) k/uL Eosinophils # 0.1 (0-0.7) k/uL Basophils # 0.0 (0-0.2) k/uL Nucleated RBCs (0-0) /100 WBC NRBC/100 WBC Diff (0.00-0.01) X 10*3/uL Manual Slide Review Sodium 133 L (137-145) mmol/L Potassium 4.7 (3.5-5.1) mmol/L Chloride 99 (98-107) mmol/L Carbon Dioxide 26 (22-30) mmol/L Anion Gap 8 mmol/L BUN 16 (9-20) mg/dL Creatinine 0.67 (0.66-1.25) mg/dL Est GFR (CKD-EPI) (>=60) Est GFR (CKD-EPI)AfAm >90 (>60 ml/min/1.73 sqM) Est GFR (CKD-EPI)NonAf >90 (>60 ml/min/1.73 sqM) BUN/Creatinine Ratio (12.00-20.00) Ratio Glucose 157 H (74-99) mg/dL POC Glucose (mg/dL) 163 H (70-110) mg/dL POC Glu Equipment Installer [place] Mary Carney [address] Glu mg/dL mg/dL Hemoglobin A1c (<=6.0) % Lactic Ac Sepsis Rflx Plasma Lactic Acid Jamar (0.7-2.0) mmol/L Calcium 8.1 L (8.4-10.2) mg/dL Phosphorus (2.5-4.5) mg/dL Magnesium 1.5 L (1.6-2.3) mg/dL Total Bilirubin (0.2-1.3) mg/dL AST (17-59) U/L ALT (4-49) U/L Alkaline Phosphatase (38-126) U/L Troponin I (0.000-0.034) ng/mL Total Protein (6.3-8.2) g/dL Albumin (3.5-5.0) g/dL Urine Color Urine Appearance (Clear) Urine pH (5.0-8.0) Ur Specific [place] (1.001-1.035) Urine Protein (Negative) Urine Glucose (UA) (Negative) Urine Ketones (Negative) Urine Blood (Negative) Urine Nitrite (Negative) Urine Bilirubin (Negative) Urine Urobilinogen (<2.0) mg/dL Ur Leukocyte Esterase (Negative) Urine RBC (0-5) /hpf Urine WBC (0-5) /hpf Ur Squamous Epith Cells (0-4) /hpf Urine Bacteria (None) /hpf Urine Mucus (None) /hpf 12/06/22 12/06/22 12/06/22 Range/Units 06:23 11:45 14:19 WBC (3.8-10.6) k/uL RBC (4.30-5.90) m/uL Hgb (13.0-17.5) gm/dL Hct (39.0-53.0) % MCV (80.0-100.0) fL MCH (25.0-35.0) pg MCHC (31.0-37.0) g/dL RDW (11.5-15.5) % Plt Count (150-450) k/uL MPV Immature Gran % (Auto) % Absolute Nucleated RBC % Neutrophils % % Neutrophils % (Manual) % Band Neuts % (Manual) % Lymphocytes % % Lymphocytes % (Manual) % Monocytes % % Monocytes % (Manual) % Eosinophils % % Basophils % % Immature Gran # X 10*3/uL Neutrophils # (1.3-7.7) k/uL Neutrophils # (Manual) (1.3-7.7) k/uL Lymphocytes # (1.0-4.8) k/uL Lymphocytes # (Manual) (1.0-4.8) k/uL Monocytes # (0-1.0) k/uL Monocytes # (Manual) (0-1.0) k/uL Eosinophils # (0-0.7) k/uL Basophils # (0-0.2) k/uL Nucleated RBCs (0-0) /100 WBC NRBC/100 WBC Diff (0.00-0.01) X 10*3/uL Manual Slide Review Sodium (137-145) mmol/L Potassium (3.5-5.1) mmol/L Chloride (98-107) mmol/L Carbon Dioxide (22-30) mmol/L Anion Gap mmol/L BUN (9-20) mg/dL Creatinine (0.66-1.25) mg/dL Est GFR (CKD-EPI) (>=60) Est GFR (CKD-EPI)AfAm (>60 ml/min/1.73 sqM) Est GFR (CKD-EPI)NonAf (>60 ml/min/1.73 sqM) BUN/Creatinine Ratio (12.00-20.00) Ratio Glucose (74-99) mg/dL POC Glucose (mg/dL) 151 H 252 H 183 H (70-110) mg/dL POC Glu Equipment Installer Mary Ceja Makailey Vantiem, Maka[address] Glu mg/dL mg/dL Hemoglobin A1c (<=6.0) % Lactic Ac Sepsis Rflx Plasma Lactic Acid Jamar (0.7-2.0) mmol/L Calcium (8.4-10.2) mg/dL Phosphorus (2.5-4.5) mg/dL Magnesium (1.6-2.3) mg/dL Total Bilirubin (0.2-1.3) mg/dL AST (17-59) U/L ALT (4-49) U/L Alkaline Phosphatase (38-126) U/L Troponin I (0.000-0.034) ng/mL Total Protein (6.3-8.2) g/dL Albumin (3.5-5.0) g/dL Urine Color Urine Appearance (Clear) Urine pH (5.0-8.0) Ur Specific [place] (1.001-1.035) Urine Protein (Negative) Urine Glucose (UA) (Negative) Urine Ketones (Negative) Urine Blood (Negative) Urine Nitrite (Negative) Urine Bilirubin (Negative) Urine Urobilinogen (<2.0) mg/dL Ur Leukocyte Esterase (Negative) Urine RBC (0-5) /hpf Urine WBC (0-5) /hpf Ur Squamous Epith Cells (0-4) /hpf Urine Bacteria (None) /hpf Urine Mucus (None) /hpf 12/06/22 12/06/22 12/07/22 Range/Units 16:39 20:32 05:56 WBC (3.8-10.6) k/uL RBC (4.30-5.90) m/uL Hgb (13.0-17.5) gm/dL Hct (39.0-53.0) % MCV (80.0-100.0) fL MCH (25.0-35.0) pg MCHC (31.0-37.0) g/dL RDW (11.5-15.5) % Plt Count (150-450) k/uL MPV Immature Gran % (Auto) % Absolute Nucleated RBC % Neutrophils % % Neutrophils % (Manual) % Band Neuts % (Manual) % Lymphocytes % % Lymphocytes % (Manual) % Monocytes % % Monocytes % (Manual) % Eosinophils % % Basophils % % Immature Gran # X 10*3/uL Neutrophils # (1.3-7.7) k/uL Neutrophils # (Manual) (1.3-7.7) k/uL Lymphocytes # (1.0-4.8) k/uL Lymphocytes # (Manual) (1.0-4.8) k/uL Monocytes # (0-1.0) k/uL Monocytes # (Manual) (0-1.0) k/uL Eosinophils # (0-0.7) k/uL Basophils # (0-0.2) k/uL Nucleated RBCs (0-0) /100 WBC NRBC/100 WBC Diff (0.00-0.01) X 10*3/uL Manual Slide Review Sodium (137-145) mmol/L Potassium (3.5-5.1) mmol/L Chloride (98-107) mmol/L Carbon Dioxide (22-30) mmol/L Anion Gap mmol/L BUN (9-20) mg/dL Creatinine (0.66-1.25) mg/dL Est GFR (CKD-EPI) (>=60) Est GFR (CKD-EPI)AfAm (>60 ml/min/1.73 sqM) Est GFR (CKD-EPI)NonAf (>60 ml/min/1.73 sqM) BUN/Creatinine Ratio (12.00-20.00) Ratio Glucose (74-99) mg/dL POC Glucose (mg/dL) 205 H 204 H (70-110) mg/dL POC Glu Equipment Installer ID Daljit Fuentes Kalib [address] Glu mg/dL 183 mg/dL Hemoglobin A1c 8.0 H (<=6.0) % Lactic Ac Sepsis Rflx Plasma Lactic Acid Jamar (0.7-2.0) mmol/L Calcium (8.4-10.2) mg/dL Phosphorus (2.5-4.5) mg/dL Magnesium (1.6-2.3) mg/dL Total Bilirubin (0.2-1.3) mg/dL AST (17-59) U/L ALT (4-49) U/L Alkaline Phosphatase (38-126) U/L Troponin I (0.000-0.034) ng/mL Total Protein (6.3-8.2) g/dL Albumin (3.5-5.0) g/dL Urine Color Urine Appearance (Clear) Urine pH (5.0-8.0) Ur Specific [place] (1.001-1.035) Urine Protein (Negative) Urine Glucose (UA) (Negative) Urine Ketones (Negative) Urine Blood (Negative) Urine Nitrite (Negative) Urine Bilirubin (Negative) Urine Urobilinogen (<2.0) mg/dL Ur Leukocyte Esterase (Negative) Urine RBC (0-5) /hpf Urine WBC (0-5) /hpf Ur Squamous Epith Cells (0-4) /hpf Urine Bacteria (None) /hpf Urine Mucus (None) /hpf 12/07/22 12/07/22 12/07/22 Range/Units 05:56 05:56 06:18 WBC 7.04 (3.8-10.6) k/uL RBC 3.89 L (4.30-5.90) m/uL Hgb 11.9 L (13.0-17.5) gm/dL Hct 34.5 L (39.0-53.0) % MCV 88.7 (80.0-100.0) fL MCH 30.6 (25.0-35.0) pg MCHC 34.5 (31.0-37.0) g/dL RDW 12.4 (11.5-15.5) % Plt Count 219 (150-450) k/uL MPV 10.0 Immature Gran % (Auto) 0.40 % Absolute Nucleated RBC 0 % Neutrophils % 82.8 % Neutrophils % (Manual) % Band Neuts % (Manual) % Lymphocytes % 6.3 % Lymphocytes % (Manual) % Monocytes % 9.5 % Monocytes % (Manual) % Eosinophils % 0.7 % Basophils % 0.3 % Immature Gran # 0.03 X 10*3/uL Neutrophils # 5.83 (1.3-7.7) k/uL Neutrophils # (Manual) (1.3-7.7) k/uL Lymphocytes # 0.44 L (1.0-4.8) k/uL Lymphocytes # (Manual) (1.0-4.8) k/uL Monocytes # 0.67 (0-1.0) k/uL Monocytes # (Manual) (0-1.0) k/uL Eosinophils # 0.05 (0-0.7) k/uL Basophils # 0.02 (0-0.2) k/uL Nucleated RBCs (0-0) /100 WBC NRBC/100 WBC Diff 0 (0.00-0.01) X 10*3/uL Manual Slide Review Sodium 135 (137-145) mmol/L Potassium 4.1 (3.5-5.1) mmol/L Chloride 99 (98-107) mmol/L Carbon Dioxide 22.5 (22-30) mmol/L Anion Gap 13.50 H mmol/L BUN 9.5 (9-20) mg/dL Creatinine 0.7 (0.66-1.25) mg/dL Est GFR (CKD-EPI) 93 (>=60) Est GFR (CKD-EPI)AfAm (>60 ml/min/1.73 sqM) Est GFR (CKD-EPI)NonAf (>60 ml/min/1.73 sqM) BUN/Creatinine Ratio 13.57 (12.00-20.00) Ratio Glucose 216 H (74-99) mg/dL POC Glucose (mg/dL) 209 H (70-110) mg/dL POC Glu Equipment Installer ID Liss Nichols Estimated Ave Glu mg/dL mg/dL Hemoglobin A1c (<=6.0) % Lactic Ac Sepsis Rflx Plasma Lactic Acid Jamar (0.7-2.0) mmol/L Calcium 8.2 L (8.4-10.2) mg/dL Phosphorus (2.5-4.5) mg/dL Magnesium 1.3 L (1.6-2.3) mg/dL Total Bilirubin (0.2-1.3) mg/dL AST (17-59) U/L ALT (4-49) U/L Alkaline Phosphatase (38-126) U/L Troponin I (0.000-0.034) ng/mL Total Protein (6.3-8.2) g/dL Albumin (3.5-5.0) g/dL Urine Color Urine Appearance (Clear) Urine pH (5.0-8.0) Ur Specific [place] (1.001-1.035) Urine Protein (Negative) Urine Glucose (UA) (Negative) Urine Ketones (Negative) Urine Blood (Negative) Urine Nitrite (Negative) Urine Bilirubin (Negative) Urine Urobilinogen (<2.0) mg/dL Ur Leukocyte Esterase (Negative) Urine RBC (0-5) /hpf Urine WBC (0-5) /hpf Ur Squamous Epith Cells (0-4) /hpf Urine Bacteria (None) /hpf Urine Mucus (None) /hpf 0712/07/22 12/07/22 Range/Units 07:17 11:03 16:54 WBC (3.8-10.6) k/uL RBC (4.30-5.90) m/uL Hgb (13.0-17.5) gm/dL Hct (39.0-53.0) % MCV (80.0-100.0) fL MCH (25.0-35.0) pg MCHC (31.0-37.0) g/dL RDW (11.5-15.5) % Plt Count (150-450) k/uL MPV Immature Gran % (Auto) % Absolute Nucleated RBC % Neutrophils % % Neutrophils % (Manual) % Band Neuts % (Manual) % Lymphocytes % % Lymphocytes % (Manual) % Monocytes % % Monocytes % (Manual) % Eosinophils % % Basophils % % Immature Gran # X 10*3/uL Neutrophils # (1.3-7.7) k/uL Neutrophils # (Manual) (1.3-7.7) k/uL Lymphocytes # (1.0-4.8) k/uL Lymphocytes # (Manual) (1.0-4.8) k/uL Monocytes # (0-1.0) k/uL Monocytes # (Manual) (0-1.0) k/uL Eosinophils # (0-0.7) k/uL Basophils # (0-0.2) k/uL Nucleated RBCs (0-0) /100 WBC NRBC/100 WBC Diff (0.00-0.01) X 10*3/uL Manual Slide Review Sodium (137-145) mmol/L Potassium (3.5-5.1) mmol/L Chloride (98-107) mmol/L Carbon Dioxide (22-30) mmol/L Anion Gap mmol/L BUN (9-20) mg/dL Creatinine (0.66-1.25) mg/dL Est GFR (CKD-EPI) (>=60) Est GFR (CKD-EPI)AfAm (>60 ml/min/1.73 sqM) Est GFR (CKD-EPI)NonAf (>60 ml/min/1.73 sqM) BUN/Creatinine Ratio (12.00-20.00) Ratio Glucose (74-99) mg/dL POC Glucose (mg/dL) 216 H 171 H 179 H (70-110) mg/dL POC Glu Equipment Installer ID Thorngate, Lashae Thorngate, Lashae Thorngate, Lashae [address]imated Ave Glu mg/dL mg/dL Hemoglobin A1c (<=6.0) % Lactic Ac Sepsis Rflx Plasma Lactic Acid Jamar (0.7-2.0) mmol/L Calcium (8.4-10.2) mg/dL Phosphorus (2.5-4.5) mg/dL Magnesium (1.6-2.3) mg/dL Total Bilirubin (0.2-1.3) mg/dL AST (17-59) U/L ALT (4-49) U/L Alkaline Phosphatase (38-126) U/L Troponin I (0.000-0.034) ng/mL Total Protein (6.3-8.2) g/dL Albumin (3.5-5.0) g/dL Urine Color Urine Appearance (Clear) Urine pH (5.0-8.0) Ur Specific [place] (1.001-1.035) Urine Protein (Negative) Urine Glucose (UA) (Negative) Urine Ketones (Negative) Urine Blood (Negative) Urine Nitrite (Negative) Urine Bilirubin (Negative) Urine Urobilinogen (<2.0) mg/dL Ur Leukocyte Esterase (Negative) Urine RBC (0-5) /hpf Urine WBC (0-5) /hpf Ur Squamous Epith Cells (0-4) /hpf Urine Bacteria (None) /hpf Urine Mucus (None) /hpf - EKG Data -: EKG Interpreted by Me (EKG is paced 80 OR 366 QRS 62 QTC 420) - Radiology Data Radiology results: report reviewed (CT brain and chest x-rays and x-rays negative for acute disease), image reviewed Disposition Clinical Impression: Altered mental status, Dehydration, Urinary tract infection, Delirium due to general medical condition Disposition: ADMITTED IP TO THIS HOSP Condition: Fair Is patient prescribed a controlled substance at d/c from ED?: No Time of Disposition: 23:20
--- NOTE | 2022-12-04 20:37 | XR ---
EXAMINATION TYPE: XR pelvis AP view DATE OF EXAM: 12/04/2022 COMPARISON: None HISTORY: Pain TECHNIQUE: AP pelvis FINDINGS: Femoral heads articulate with the acetabulum. No acute fracture or dislocation is evident. Pubic symphysis and sacroiliac joints are normal. Normal bowel gas is present. Phleboliths within the pelvis. IMPRESSION: 1. No acute osseous abnormality AP pelvis
--- NOTE | 2022-12-04 20:37 | XR ---
EXAMINATION TYPE: XR chest 1V DATE OF EXAM: 12/04/2022 COMPARISON: 09/27/2020 INDICATION: Pain TECHNIQUE: Single frontal view of the chest is obtained. FINDINGS: The heart size is normal. The pulmonary vasculature is normal. Electronic devices overlie the left and right chest. Previous right midlung density is not clearly ev ident on this exam. No suspicious focal consolidations or infiltrates. IMPRESSION: 1. No acute pulmonary process.
[2022-12-04 21:23] LABS: HCT 37.5 % (39.0-53.0); HGB 11.2 gm/dL (13.0-17.5); MCH 26.7 pg (25.0-35.0); MCHC 29.8 g/dL (31.0-37.0); MCV 89.5 fL (80.0-100.0); Mean Platelet Volume 7.9; Platelet Count 224 k/uL (150-450); RBC 4.19 m/uL (4.30-5.90); RDW 12.9 % (11.5-15.5); WBC 18.1 k/uL (3.8-10.6)
[2022-12-04 21:42] LABS: ALT 18 U/L (4-49); African American GFR (CKD) >90 (>60 ml/min/1.73 sqM); Anion Gap 14 mmol/L; Blood Urea Nitrogen 28 mg/dL (9-20); Calcium 8.5 mg/dL (8.4-10.2); Carbon Dioxide 20 mmol/L (22-30); Chloride 97 mmol/L (98-107); Glucose 221 mg/dL (74-99); Non-African American GFR(CKD) 83 (>60 ml/min/1.73 sqM); Sodium 131 mmol/L (137-145); Total Bilirubin 1.2 mg/dL (0.2-1.3)
[2022-12-04 21:56] LABS: AST 27 U/L (17-59); Albumin 3.9 g/dL (3.5-5.0); Alkaline Phosphatase 56 U/L (38-126); Magnesium 1.3 mg/dL (1.6-2.3); Phosphorus 4.5 mg/dL (2.5-4.5); Total Protein 6.8 g/dL (6.3-8.2)
[2022-12-04 22:11] LABS: Appearance,Urine Clear (Clear); Bacteria,Urine Many /hpf; Bilirubin,Urine Negative (Negative); Blood,Urine Negative (Negative); Color,Urine Yellow; Glucose,Urine (UA) Negative (Negative); Ketones,Urine Negative (Negative); Leukocyte Esterase,Urine Moderate (Negative); Mucus,Urine Occasional /hpf; Nitrite,Urine Positive (Negative); PH, Urine 5.5 (5.0-8.0); Protein,Urine Trace (Negative); RBC,Urine 4 /hpf (0-5); Specific Gravity,Urine 1.024 (1.001-1.035); Squamous Epithelial Cell,Urine <1 /hpf (0-4); Urobilinogen,Urine <2.0 mg/dL (<2.0); WBC,Urine 22 /hpf (0-5)
[2022-12-04 22:13] LABS: Band Neutrophils % 3 %; Lymphocytes # (M) 1.63 k/uL (1.0-4.8); Monocytes # (M) 1.45 k/uL (0-1.0); Neutrophils % (M) 80 %; Nucleated Red Blood Cells 0 /100 WBC (0-0); Total Cells Counted 100
[2022-12-04] MEDS ORDERED: SODIUM CHLORIDE 0.9% 500 ML 500 ML IV STA (23:13)
[2022-12-04] MEDS: SODIUM CHLORIDE 0.9% 1,000 ML IV SCH (23:26)
[2022-12-05] MEDS ORDERED: NALOXONE 0.4 MG/ML 1 ML VIAL IV PRN (00:58)
[2022-12-05] MEDS: SODIUM CHLORIDE 0.9% 1,000 ML IV SCH ×3 (08:13→16:16)
[2022-12-05 11:50] LABS: Glucose,Whole Blood 160 mg/dL (70-110)
[2022-12-05] MEDS ORDERED: DEXTROSE 50% SYRINGE 50 ML IVP PRN ×2 (12:30)
[2022-12-05] MEDS: INSULIN ASPART (NovoLOG) 100 UNIT/ML VIAL SQ SCH ×3 (12:41→22:25)
[2022-12-05] MEDS: MEMANTINE 5 MG TAB PO SCH ×2 (13:21→22:27)
[2022-12-05] MEDS: CARBIDOPA-LEVODOPA ER 50-200MG 1 EACH TABLET.ER PO SCH ×2 (14:47→22:28)
[2022-12-05 17:14] LABS: Glucose,Whole Blood 124 mg/dL (70-110)
[2022-12-05 21:56] LABS: Glucose,Whole Blood 163 mg/dL (70-110)
[2022-12-05] MEDS: LOSARTAN 50 MG TAB PO SCH (22:26)
[2022-12-05] MEDS: ASPIRIN 81 MG PO SCH (22:27)
[2022-12-05] MEDS: ATORVASTATIN 10 MG TAB PO SCH (22:27)
[2022-12-05] MEDS: DONEPEZIL 10 MG TAB PO SCH (22:27)
[2022-12-05] MEDS: COLCHICINE 0.6 MG EACH PO SCH (22:28)
[2022-12-06] MEDS: HEPARIN SODIUM,PORCINE/PF 5,000 UNIT/0.5 ML SYRINGE SQ SCH ×3 (00:36→16:46)
[2022-12-06 06:25] LABS: Glucose,Whole Blood 151 mg/dL (70-110)
[2022-12-06] MEDS: INSULIN ASPART (NovoLOG) 100 UNIT/ML VIAL SQ SCH ×4 (06:43→20:49)
[2022-12-06 06:47] LABS: African American GFR (CKD) >90 (>60 ml/min/1.73 sqM); Anion Gap 8 mmol/L; Blood Urea Nitrogen 16 mg/dL (9-20); Calcium 8.1 mg/dL (8.4-10.2); Carbon Dioxide 26 mmol/L (22-30); Chloride 99 mmol/L (98-107); Glucose 157 mg/dL (74-99); Magnesium 1.5 mg/dL (1.6-2.3); Non-African American GFR(CKD) >90 (>60 ml/min/1.73 sqM); Sodium 133 mmol/L (137-145)
[2022-12-06 06:57] LABS: Potassium 4.7 mmol/L (3.5-5.1)
[2022-12-06 08:04] LABS: Basophils % (A) 0 %; Eosinophils # (A) 0.1 k/uL (0-0.7); Eosinophils % (A) 2 %; HCT 38.2 % (39.0-53.0); HGB 13.1 gm/dL (13.0-17.5); Lymphocytes # (A) 0.7 k/uL (1.0-4.8); Lymphocytes % (A) 8 %; MCH 31.5 pg (25.0-35.0); MCHC 34.4 g/dL (31.0-37.0); MCV 91.8 fL (80.0-100.0); Mean Platelet Volume 9.3; Monocytes # (A) 0.5 k/uL (0-1.0); Monocytes % (A) 6 %; Neutrophils # (A) 7.4 k/uL (1.3-7.7); Neutrophils % (A) 83 %; Platelet Count 215 k/uL (150-450); RBC 4.16 m/uL (4.30-5.90); RDW 12.9 % (11.5-15.5); WBC 8.9 k/uL (3.8-10.6)
[2022-12-06] MEDS: MEMANTINE 5 MG TAB PO SCH ×2 (08:26→20:11)
[2022-12-06] MEDS: COLCHICINE 0.6 MG EACH PO SCH ×2 (08:26→20:11)
[2022-12-06] MEDS: CARBIDOPA-LEVODOPA ER 50-200MG 1 EACH TABLET.ER PO SCH ×2 (08:26→20:11)
[2022-12-06] MEDS: NON FORMULARY DRUG (Mirabegron [Myrbetriq] 50 MG Tab.Er.24h) PO SCH (08:49)
[2022-12-06 11:48] LABS: Glucose,Whole Blood 252 mg/dL (70-110)
[2022-12-06] MEDS: SODIUM CHLORIDE 0.9% 1,000 ML IV SCH (12:10)
--- NOTE | 2022-12-06 12:26 | P.HPIM ---
History of Present Illness H&P Date: 12/05/22 Chief Complaint: Altered mental status Patient is a 82-year-old male with a known history of hypertension, diabetes type 2, Parkinson's disease and recent battery replacement of the brain stimulator presents to ER due to increased confusion and altered mental status. According to the family patient is not acting appropriately as per his baseline. Symptoms have been present throughout yesterday. Patient has been very weak and not eating well. Otherwise patient is unable to provide any history. Awake alert and follows simple commands. Patient has been afebrile. Pulse ox 93% on room air. Blood pressure 147/52. Chest x-ray showed no acute process. Pelvic x-ray showed no acute osseous abnormality. EKG showed atrial paced rhythm. Laboratory data showed WBC 18.1 hemoglobin 11.2 and platelets 224 Sodium 131 potassium 5.0 chloride 80 BUN 28 and creatinine 0.83 and blood sugar is 221. Lactic acid 3.2 on admission magnesium 1.3 Urinalysis showed trace protein moderate leukocyte esterase and elevated WBCs. Many bacteria. Patient was also recently treated for acute gout of the great toe and was on steroid course. Currently taking colchicine 0.6 mg twice daily. Review of Systems ROS unobtainable: due to mental status Past Medical History Past Medical History: Diabetes Mellitus, Hyperlipidemia, Hypertension, Memory Impairment, Musculoskeletal Disorder Additional Past Medical History / Comment(s): parkinson's, parathyroid dysfunction, kidney stones History of Any Multi-Drug Resistant Organisms: None Reported Additional Past Surgical History / Comment(s): parathyroid cyst removed, deep brain stimulation, colonoscopy Past Anesthesia/Blood Transfusion Reactions: No Reported Reaction Past Psychological History: No Psychological Hx Reported Past Alcohol Use History: Rare Past Drug Use History: None Reported - Past Family History Mother Family Medical History: Dementia Medications and Allergies Home Medications Medication Instructions Recorded Confirmed Type Aspirin EC [Ecotrin Low Dose] 81 mg PO HS 09/04/17 12/04/22 History Donepezil [Aricept] 10 mg PO HS 09/04/17 12/04/22 History Losartan Potassium 50 mg PO HS 09/04/17 12/04/22 History Simvastatin [Zocor] 20 mg PO HS 09/04/17 12/04/22 History metFORMIN HCL [Glucophage] 1,000 mg PO BID 09/04/17 12/04/22 History Glimepiride [Amaryl] 1 mg PO BID 12/14/18 12/04/22 History Memantine [Namenda] 5 mg PO BID 07/21/19 12/04/22 History Colchicine [Colcrys] 0.6 mg PO BID 12/04/22 12/04/22 History Mirabegron [Myrbetriq] 50 mg PO DAILY 12/04/22 12/04/22 History methylPREDNISolone Dose Pack See Taper PO DIRECTED 12/04/22 12/04/22 History [Medrol Dose Pack] Carbidopa-Levodopa ER 50-200Mg 1 tab PO BID 12/05/22 12/05/22 History [Sinemet CR 50-200 mg] Allergies Allergy/AdvReac Type Severity Reaction Status Date / Time Penicillins Allergy Rash/Hives Verified 12/04/22 22:56 Physical Exam Vitals: Vital Signs Temp Pulse Resp BP Pulse Ox 12/05/22 11:49 58 L 19 140/82 95 12/05/22 07:45 65 17 132/81 12/05/22 06:55 18 94 L 12/05/22 06:12 64 18 145/85 12/05/22 05:00 73 18 150/83 92 L 12/05/22 04:20 88 12 133/101 12/05/22 04:00 78 20 147/78 96 12/05/22 00:00 97.9 F 73 18 144/74 100 12/04/22 19:26 98.5 F 76 16 147/52 93 L Intake and Output 12/04/22 12/05/22 12/05/22 22:59 06:59 14:59 Other: Weight 90.718 kg PHYSICAL EXAMINATION: Patient is lying in the bed. Awake alert able to follow simple commands. HEENT: Normocephalic. Neck is supple. Pupils reactive. Nostrils clear. Oral cavity is moist. Neck reveals no JVD, carotid bruits, or thyromegaly. CHEST EXAMINATION: Trachea is central. Symmetrical expansion. Lung ramirez clear to auscultation and percussion. CARDIAC: Normal S1, S2 with no gallops. No murmurs ABDOMEN: Soft. Bowel sounds present. Nontender. No organomegaly. No abdominal bruits. Extremities: reveal no edema. No clubbing or cyanosis Neurologically awake, alert, oriented x1-2 . Able to move extremities. No gross focal neurological deficit. Skin: No rash or skin lesions. Psychiatric: Coperative. Could not be assessed completely., Musculoskeletal: No joint swelling or deformity. Normal range of motion. Results CBC & Chem 7: 12/06/22 06:23 12/06/22 06:23 Labs: Abnormal Lab Results - Last 24 Hours (Table) 12/04/22 12/04/22 12/04/22 Range/Units 21:08 21:08 21:08 WBC 18.1 H (3.8-10.6) k/uL RBC 4.19 L (4.30-5.90) m/uL Hgb 11.2 L (13.0-17.5) gm/dL Hct 37.5 L (39.0-53.0) % MCHC 29.8 L (31.0-37.0) g/dL Neutrophils # (Manual) 15.00 H (1.3-7.7) k/uL Monocytes # (Manual) 1.45 H (0-1.0) k/uL Sodium 131 L (137-145) mmol/L Chloride 97 L (98-107) mmol/L Carbon Dioxide 20 L (22-30) mmol/L BUN 28 H (9-20) mg/dL Glucose 221 H (74-99) mg/dL POC Glucose (mg/dL) (70-110) mg/dL Plasma Lactic Acid Jamar 3.2 H* (0.7-2.0) mmol/L Magnesium 1.3 L (1.6-2.3) mg/dL Urine Protein (Negative) Ur Leukocyte Esterase (Negative) Urine WBC (0-5) /hpf Urine Bacteria (None) /hpf Urine Mucus (None) /hpf 12/04/22 12/05/22 Range/Units 21:54 11:48 WBC (3.8-10.6) k/uL RBC (4.30-5.90) m/uL Hgb (13.0-17.5) gm/dL Hct (39.0-53.0) % MCHC (31.0-37.0) g/dL Neutrophils # (Manual) (1.3-7.7) k/uL Monocytes # (Manual) (0-1.0) k/uL Sodium (137-145) mmol/L Chloride (98-107) mmol/L Carbon Dioxide (22-30) mmol/L BUN (9-20) mg/dL Glucose (74-99) mg/dL POC Glucose (mg/dL) 160 H (70-110) mg/dL Plasma Lactic Acid Jamar (0.7-2.0) mmol/L Magnesium (1.6-2.3) mg/dL Urine Protein Trace H (Negative) Ur Leukocyte Esterase Moderate H (Negative) Urine WBC 22 H (0-5) /hpf Urine Bacteria Many H (None) /hpf Urine Mucus Occasional H (None) /hpf Thrombosis Risk Factor Assmnt - DVT/VTE Prophylaxis DVT/VTE Prophylaxis: Pharmacologic Prophylaxis ordered Assessment and Plan Assessment: Altered mental status likely due to metabolic encephalopathy Recent adjustment of brain stimulator x2. Possible urinary tract infection Hypovolemic hyponatremia Lactic acidosis likely due to tissue hypoperfusion Hypomagnesemia Hyperglycemia with uncontrolled diabetes type 2 Memory impairment/dementia Parkinson disease History of renal stones Hyperlipidemia DVT prophylax with heparin subcu Plan: Patient will be continued on IV hydration with normal saline and continue with antibiotics ceftriaxone follow-up urine culture report. Follow-up renal function and replace magnesium. Continue with home medications including Sinemet and follow-up. Discussed with the family at bedside in detail. Swallow evaluation tomorrow. Time with Patient: Greater than 30
[2022-12-06] MEDS: DOCUSATE 100 MG CAP PO SCH ×2 (12:46→20:11)
[2022-12-06] MEDS ORDERED: Magnesium Replacement Protocol 1 EACH MISC MISCELLANE PRN (13:12)
--- NOTE | 2022-12-06 13:25 | P.PN ---
Subjective Patient is a 82-year-old male with a known history of hypertension, diabetes type 2, Parkinson's disease and recent battery replacement of the brain stimulator presents to ER due to increased confusion and altered mental status. According to the family patient is not acting appropriately as per his baseline. Symptoms have been present throughout yesterday. Patient has been very weak and not eating well. Otherwise patient is unable to provide any history. Awake alert and follows simple commands. Patient has been afebrile. Pulse ox 93% on room air. Blood pressure 147/52. Chest x-ray showed no acute process. Pelvic x-ray showed no acute osseous abnormality. EKG showed atrial paced rhythm. Laboratory data showed WBC 18.1 hemoglobin 11.2 and platelets 224 Sodium 131 potassium 5.0 chloride 80 BUN 28 and creatinine 0.83 and blood sugar is 221. Lactic acid 3.2 on admission magnesium 1.3 Urinalysis showed trace protein moderate leukocyte esterase and elevated WBCs. Many bacteria. 12/06/2022 This is a pleasant 10 years old male with past medical history of Parkinson disease. Family at bedside including and daughter. Patient recently had nerve stimulator placed into his brain and spine for his tremor from Parkinson disease which was done about one week accordingly [facility], patient looks is doing well regarding this. However he came because of confusion. As per family at bedside he was almost obtunded and unresponsive and nonverbal on the presentation now he is improved, he is up in bed but still somewhat confused and lethargic. He is awake and oriented to place as he knows he is in [facility]. He couldn't tell the year 2022 but he could not tell the exact date or the name of the president but he couldn't recognize his family members with names. He follows commands. As per family is getting close to baseline and family were considering taking him home today. Family they don't want him to be transferred to [facility] if indicated. Patient is not eating well and swallow evaluation is requested as well as x-ray barium swallow which is pending now Blood pressure on the high side and Norvasc is added. improving including sodium level as well as WBC is back to normal today. Physical therapy evaluation Review of systems, limited by patient condition CONSTITUTIONAL: No fever, no malaise, no fatigue. HEENT: No recent visual problems or hearing problems. Denied any sore throat. CARDIOVASCULAR: No orthopnea, PND, no palpitations, no syncope. PULMONARY: No shortness of breath, no cough, no hemoptysis. GASTROINTESTINAL: No diarrhea, no nausea, no vomiting, no abdominal pain. Normoactive bowel sounds. NEUROLOGICAL: No headaches, no weakness, no numbness. Active Medications Generic Name Dose Route Start Last Admin Trade Name Freq PRN Reason Stop Dose Admin Amlodipine Besylate 5 mg 12/06/22 13:15 Amlodipine 5 Mg Tab PO DAILY SHARRON Aspirin 81 mg 12/05/22 21:00 12/05/22 22:27 Aspirin 81 Mg PO 81 mg HS SHARRON Administration Atorvastatin Calcium 10 mg 12/05/22 21:00 12/05/22 22:27 Atorvastatin 10 Mg Tab PO 10 mg HS SHARRON Administration Carbidopa/Levodopa 1 each 12/05/22 13:00 12/06/22 08:26 Carbidopa-Levodopa Er 50-200mg 1 Each Tablet.Er PO 1 each BID SHARRON Administration Colchicine 0.6 mg 12/05/22 21:00 12/06/22 08:26 Colchicine 0.6 Mg Each PO 0.6 mg BID SHARRON Administration Dextrose/Water 25 ml 12/05/22 12:30 Dextrose 50% Syringe 50 Ml IVP PER PROTOCOL PRN Hypoglycemia Protocol Dextrose/Water 50 ml 12/05/22 12:30 Dextrose 50% Syringe 50 Ml IVP PER PROTOCOL PRN Hypoglycemia Protocol Docusate Sodium 100 mg 12/06/22 12:45 12/06/22 12:46 Docusate 100 Mg Cap PO 100 mg BID SHARRON Administration Donepezil HCl 10 mg 12/05/22 21:00 12/05/22 22:27 Donepezil 10 Mg Tab PO 10 mg HS SHARRON Administration Heparin Sodium (Porcine) 5,000 unit 12/06/22 00:00 12/06/22 08:26 Heparin Sodium,Porcine/Pf 5,000 Unit/0.5 Ml Syringe SQ 5,000 unit Q8HR SHARRON Administration Ceftriaxone Sodium 2 gm/ 50 mls @ 100 mls/hr 12/05/22 22:00 12/05/22 22:30 Sodium Chloride IVPB 100 mls/hr Q24H SHARRON Administration Protocol Sodium Chloride 1,000 mls @ 40 mls/hr 12/05/22 16:15 12/06/22 12:10 Saline 0.9% IV 75 mls/hr .Q24H SHARRON Administration Insulin Aspart 0 unit 12/05/22 12:30 12/06/22 12:50 Insulin Aspart (Novolog) 100 Unit/Ml Vial SQ Not Given ACHS SHARRON Protocol Losartan Potassium 50 mg 12/05/22 21:00 12/05/22 22:26 Losartan 50 Mg Tab PO 50 mg HS SHARRON Administration Memantine 5 mg 12/05/22 13:00 12/06/22 08:26 Memantine 5 Mg Tab PO 5 mg BID SHARRON Administration Miscellaneous Information 1 each 12/06/22 13:12 Magnesium Replacement Protocol 1 Each Misc MISCELLANE DAILY PRN Per Protocol Protocol Naloxone HCl 0.2 mg 12/05/22 00:58 Naloxone 0.4 Mg/Ml 1 Ml Vial IV Q2M PRN Opioid Reversal Non-Formulary Medication 50 mg 12/06/22 09:00 12/06/22 08:49 Mirabegron [Myrbetriq] PO Not Given DAILY SHARRON Objective - Vital Signs Vital signs: Vital Signs Temp 98 F 12/06/22 07:22 Pulse 61 12/06/22 07:22 Resp 20 12/06/22 07:22 BP 183/79 12/06/22 07:22 Pulse Ox 98 12/06/22 07:22 FiO2 Intake & Output 12/05/22 12/06/22 12/06/22 18:59 06:59 18:59 Output Total 200 Balance -200 Weight 90.718 kg Output: Urine 200 Other: Voiding Method Urinal # Voids 3 # Bowel Movements 1 - Exam -GENERAL: The patient is alert and oriented x-.3, somewhat lethargic, not in any acute distress. Well developed, well nourished. HEENT: Pupils are round and equally reacting to light. EOMI. No scleral icterus. No conjunctival pallor. Normocephalic, atraumatic. No pharyngeal erythema. No thyromegaly. CARDIOVASCULAR: S1 and S2 present. No murmurs, rubs, or gallops. PULMONARY: Chest is clear to auscultation, no wheezing , no crackles. ABDOMEN: Soft, nontender, nondistended, normoactive bowel sounds. No palpable organomegaly. MUSCULOSKELETAL: No joint swelling or deformity. EXTREMITIES: No cyanosis, clubbing, or pedal edema. NEUROLOGICAL: Gross neurological examination did not reveal any focal deficits. SKIN: No rashes. no petechiae. - Labs CBC & Chem 7: 12/06/22 06:23 12/06/22 06:23 Labs: Abnormal Lab Results - Last 24 Hours (Table) 12/05/22 12/05/22 12/06/22 Range/Units 17:12 21:55 06:23 RBC 4.16 L (4.30-5.90) m/uL Hct 38.2 L (39.0-53.0) % Lymphocytes # 0.7 L (1.0-4.8) k/uL Sodium (137-145) mmol/L Glucose (74-99) mg/dL POC Glucose (mg/dL) 124 H 163 H (70-110) mg/dL Calcium (8.4-10.2) mg/dL Magnesium (1.6-2.3) mg/dL 12/06/22 12/06/22 12/06/22 Range/Units 06:23 06:23 11:45 RBC (4.30-5.90) m/uL Hct (39.0-53.0) % Lymphocytes # (1.0-4.8) k/uL Sodium 133 L (137-145) mmol/L Glucose 157 H (74-99) mg/dL POC Glucose (mg/dL) 151 H 252 H (70-110) mg/dL Calcium 8.1 L (8.4-10.2) mg/dL Magnesium 1.5 L (1.6-2.3) mg/dL Assessment and Plan Assessment: Altered mental status likely due to metabolic encephalopathy Possible urinary tract infection Hypovolemic hyponatremia Recent adjustment of brain stimulator x2. Lactic acidosis likely due to tissue hypoperfusion Hypomagnesemia Hyperglycemia with uncontrolled diabetes type 2 Memory impairment/dementia Parkinson disease History of renal stones Hyperlipidemia Plan: Continue with gentle hydration and lab work normal saline to 40 mL/h Continue with ceftriaxone follow-up culture results Continue with neuro check. The suspicion mentation is improving significantly we'll keep monitoring now on hold for further workup. Neurology evaluation still undergoing, barium swallow is pending [facility] for blood pressure with monitoring Labs and medication were reviewed.. Continue same treatment. Continue with symptomatic treatment. Resume home medication. Monitor labs and vitals. DVT and GI prophylaxis. Further recommendations as per clinical course of the patient DVT prophylaxis: Mechanical GI Prophylaxis: Pepcid PT/OT: Pending Prognosis is guarded
[2022-12-06 14:21] LABS: Glucose,Whole Blood 183 mg/dL (70-110)
[2022-12-06] MEDS: amLODIPine 5 MG TAB PO SCH (14:21)
--- NOTE | 2022-12-06 14:47 | FL ---
Modified barium swallow. HISTORY: Dysphagia. Modified barium swallow was performed with the department of speech pathology. The patient was prese nted with various consistencies of barium. There is silent aspiration noted with thin liquid barium. Penetration is noted with thin and honey th ick mixtures. Full report is to follow from the department of speech pathology. Impression: Normal study.
[2022-12-06 16:42] LABS: Glucose,Whole Blood 205 mg/dL (70-110)
[2022-12-06] MEDS: ATORVASTATIN 10 MG TAB PO SCH (20:10)
[2022-12-06] MEDS: LOSARTAN 50 MG TAB PO SCH (20:11)
[2022-12-06] MEDS: ASPIRIN 81 MG PO SCH (20:11)
[2022-12-06] MEDS: DONEPEZIL 10 MG TAB PO SCH (20:11)
[2022-12-06] MEDS: ACETAMINOPHEN TAB 325 MG TAB PO PRN (20:29)
[2022-12-06 20:38] LABS: Glucose,Whole Blood 204 mg/dL (70-110)
[2022-12-07] MEDS: HEPARIN SODIUM,PORCINE/PF 5,000 UNIT/0.5 ML SYRINGE SQ SCH ×3 (00:32→16:52)
[2022-12-07] MEDS: SODIUM CHLORIDE 0.9% 1,000 ML IV SCH ×2 (00:35→13:14)
[2022-12-07 06:28] LABS: Glucose,Whole Blood 209 mg/dL (70-110)
[2022-12-07] MEDS: INSULIN ASPART (NovoLOG) 100 UNIT/ML VIAL SQ SCH ×4 (06:46→22:05)
[2022-12-07 07:19] LABS: Glucose,Whole Blood 216 mg/dL (70-110)
[2022-12-07] MEDS: DOCUSATE 100 MG CAP PO SCH ×2 (08:43→21:56)
[2022-12-07] MEDS: FAMOTIDINE 20 MG/2 ML VIAL IV SCH (08:43)
[2022-12-07] MEDS: MEMANTINE 5 MG TAB PO SCH ×2 (08:43→21:56)
[2022-12-07] MEDS: amLODIPine 5 MG TAB PO SCH (08:43)
[2022-12-07] MEDS: COLCHICINE 0.6 MG EACH PO SCH ×2 (08:44→21:56)
[2022-12-07] MEDS: CARBIDOPA-LEVODOPA ER 50-200MG 1 EACH TABLET.ER PO SCH ×2 (08:44→21:56)
[2022-12-07] MEDS: NON FORMULARY DRUG (Mirabegron [Myrbetriq] 50 MG Tab.Er.24h) PO SCH (08:45)
[2022-12-07 09:24] LABS: BUN/Creat Ratio 13.57 Ratio (12.00-20.00); Blood Urea Nitrogen 9.5 mg/dL (9.0-27.0); Calcium 8.2 mg/dL (8.7-10.3); Carbon Dioxide 22.5 mmol/L (21.6-31.8); Chloride 99 mmol/L (96-109); Glucose 216 mg/dL (70-110); Magnesium 1.3 mg/dL (1.5-2.4); Potassium 4.1 mmol/L (3.5-5.5); Sodium 135 mmol/L (135-145)
[2022-12-07 09:31] LABS: Basophils # (A) 0.02 X 10*3/uL (0.00-0.10); Basophils % (A) 0.3 %; Eosinophils # (A) 0.05 X 10*3/uL (0.04-0.35); Eosinophils % (A) 0.7 %; HCT 34.5 % (39.6-50.0); HGB 11.9 d/dL (12.0-15.0); Lymphocytes # (A) 0.44 X 10*3/uL (0.90-5.00); Lymphocytes % (A) 6.3 %; MCH 30.6 pg (27.0-32.0); MCHC 34.5 d/dL (32.0-37.0); MCV 88.7 FL (80.0-97.0); Monocytes # (A) 0.67 X 10*3/uL (0.20-1.00); Monocytes % (A) 9.5 %; NRBC Per 100 WBC 0 X 10*3/uL (0.00-0.01); Neutrophils # (A) 5.83 X 10*3/uL (1.80-7.70); Neutrophils % (A) 82.8 %; Platelet Count 219 X 10*3/uL (140-440); RBC 3.89 X 10*6/uL (4.40-5.60); RDW 12.4 % (11.5-14.5); WBC 7.04 X 10*3/uL (4.50-10.00)
[2022-12-07 11:07] LABS: Glucose,Whole Blood 171 mg/dL (70-110)
[2022-12-07 16:56] LABS: Glucose,Whole Blood 179 mg/dL (70-110)
[2022-12-07] MEDS ORDERED: Magnesium Replacement Protocol 1 EACH MISC MISCELLANE PRN (17:50)
[2022-12-07] MEDS ORDERED: MAGNESIUM SULFATE-D5W PMX 1 GM in DEXTROSE/WATER 1 100ML.BAG IVPB ONE (17:50)
--- NOTE | 2022-12-07 17:56 | P.PN ---
Subjective Patient is a 82-year-old male with a known history of hypertension, diabetes type 2, Parkinson's disease and recent battery replacement of the brain stimulator presents to ER due to increased confusion and altered mental status. According to the family patient is not acting appropriately as per his baseline. Symptoms have been present throughout yesterday. Patient has been very weak and not eating well. Otherwise patient is unable to provide any history. Awake alert and follows simple commands. Patient has been afebrile. Pulse ox 93% on room air. Blood pressure 147/52. Chest x-ray showed no acute process. Pelvic x-ray showed no acute osseous abnormality. EKG showed atrial paced rhythm. Laboratory data showed WBC 18.1 hemoglobin 11.2 and platelets 224 Sodium 131 potassium 5.0 chloride 80 BUN 28 and creatinine 0.83 and blood sugar is 221. Lactic acid 3.2 on admission magnesium 1.3 Urinalysis showed trace protein moderate leukocyte esterase and elevated WBCs. Many bacteria. 12/06/2022 This is a pleasant 10 years old male with past medical history of Parkinson disease. Family at bedside including and daughter. Patient recently had nerve stimulator placed into his brain and spine for his tremor from Parkinson disease which was done about one week accordingly [facility], patient looks is doing well regarding this. However he came because of confusion. As per family at bedside he was almost obtunded and unresponsive and nonverbal on the presentation now he is improved, he is up in bed but still somewhat confused and lethargic. He is awake and oriented to place as he knows he is in [facility]. He couldn't tell the year 2022 but he could not tell the exact date or the name of the president but he couldn't recognize his family members with names. He follows commands. As per family is getting close to baseline and family were considering taking him home today. Family they don't want him to be transferred to [facility] if indicated. Patient is not eating well and swallow evaluation is requested as well as x-ray barium swallow which is pending now Blood pressure on the high side and Norvasc is added. improving including sodium level as well as WBC is back to normal today. Physical therapy evaluation 12/07/2022 Patient mentation is improving, his sitting in chair looks relaxed, family at bedside including daughter and think patient is improving as well. He still picking up his swallowing slowly and he was starting eating today we'll keep monitoring. His swallow study and x-ray showing normal results. Patient placed on a special diet. He is a still been treated for UTI with ceftriaxone. He had fever yesterday. No more fever today. Since start eating we will discontinue IV fluids Objective - Vital Signs Vital signs: Vital Signs Temp 98.5 F 12/07/22 13:47 Pulse 77 12/07/22 13:47 Resp 16 12/07/22 13:47 BP 106/70 12/07/22 13:47 Pulse Ox 95 12/07/22 13:47 FiO2 Intake & Output 12/06/22 12/07/22 12/07/22 18:59 06:59 18:59 Intake Total 80 Balance 80 Weight 90.718 kg Intake: Oral 80 Other: # Voids 2 6 - Exam -GENERAL: The patient is alert and oriented x-.3, somewhat lethargic, not in any acute distress. Well developed, well nourished. HEENT: Pupils are round and equally reacting to light. EOMI. No scleral icterus. No conjunctival pallor. Normocephalic, atraumatic. No pharyngeal erythema. No thyromegaly. CARDIOVASCULAR: S1 and S2 present. No murmurs, rubs, or gallops. PULMONARY: Chest is clear to auscultation, no wheezing , no crackles. ABDOMEN: Soft, nontender, nondistended, normoactive bowel sounds. No palpable organomegaly. MUSCULOSKELETAL: No joint swelling or deformity. EXTREMITIES: No cyanosis, clubbing, or pedal edema. NEUROLOGICAL: Gross neurological examination did not reveal any focal deficits. SKIN: No rashes. no petechiae. - Labs CBC & Chem 7: 12/07/22 05:56 12/07/22 05:56 Labs: Abnormal Lab Results - Last 24 Hours (Table) 12/06/22 12/07/22 12/07/22 Range/Units 20:32 05:56 05:56 RBC 3.89 L (4.40-5.60) X 10*6/uL Hgb 11.9 L (12.0-15.0) d/dL Hct 34.5 L (39.6-50.0) % Lymphocytes # 0.44 L (0.90-5.00) X 10*3/uL Anion Gap (4.00-12.00) mmol/L Glucose (70-110) mg/dL POC Glucose (mg/dL) 204 H (70-110) mg/dL Hemoglobin A1c 8.0 H (<=6.0) % Calcium (8.7-10.3) mg/dL Magnesium (1.5-2.4) mg/dL 12/07/22 12/07/22 12/07/22 Range/Units 05:56 06:18 07:17 RBC (4.40-5.60) X 10*6/uL Hgb (12.0-15.0) d/dL Hct (39.6-50.0) % Lymphocytes # (0.90-5.00) X 10*3/uL Anion Gap 13.50 H (4.00-12.00) mmol/L Glucose 216 H (70-110) mg/dL POC Glucose (mg/dL) 209 H 216 H (70-110) mg/dL Hemoglobin A1c (<=6.0) % Calcium 8.2 L (8.7-10.3) mg/dL Magnesium 1.3 L (1.5-2.4) mg/dL 12/07/22 12/07/22 Range/Units 11:03 16:54 RBC (4.40-5.60) X 10*6/uL Hgb (12.0-15.0) d/dL Hct (39.6-50.0) % Lymphocytes # (0.90-5.00) X 10*3/uL Anion Gap (4.00-12.00) mmol/L Glucose (70-110) mg/dL POC Glucose (mg/dL) 171 H 179 H (70-110) mg/dL Hemoglobin A1c (<=6.0) % Calcium (8.7-10.3) mg/dL Magnesium (1.5-2.4) mg/dL Microbiology - Last 24 Hours (Table) 12/05/22 22:00 Urine Culture - Final Urine,Voided Assessment and Plan Assessment: Altered mental status likely due to metabolic encephalopathy Possible urinary tract infection Hypovolemic hyponatremia Recent adjustment of brain stimulator x2. Lactic acidosis likely due to tissue hypoperfusion Hypomagnesemia Hyperglycemia with uncontrolled diabetes type 2 Memory impairment/dementia Parkinson disease History of renal stones Hyperlipidemia Plan: Continue with gentle hydration and lab work normal saline to 40 mL/h Continue with ceftriaxone follow-up culture results Continue with neuro check. The suspicion mentation is improving significantly we'll keep monitoring now on hold for further workup. Neurology evaluation still undergoing, barium swallow is pending And [facility] for blood pressure with monitoring Labs and medication were reviewed.. Continue same treatment. Continue with symptomatic treatment. Resume home medication. Monitor labs and vitals. DVT and GI prophylaxis. Further recommendations as per clinical course of the patient DVT prophylaxis: Mechanical GI Prophylaxis: Pepcid PT/OT: Pending Prognosis is guarded
[2022-12-07] MEDS ORDERED: metroNIDAZOLE-NS PMX 500 MG in SALINE 1 100ML.BAG IVPB SCH (20:00)
[2022-12-07 20:45] LABS: Glucose,Whole Blood 176 mg/dL (70-110)
[2022-12-07] MEDS: LOSARTAN 50 MG TAB PO SCH (21:56)
[2022-12-07] MEDS: ATORVASTATIN 10 MG TAB PO SCH (21:56)
[2022-12-07] MEDS: ASPIRIN 81 MG PO SCH (21:56)
[2022-12-07] MEDS: DONEPEZIL 10 MG TAB PO SCH (21:56)
[2022-12-08] MEDS: HEPARIN SODIUM,PORCINE/PF 5,000 UNIT/0.5 ML SYRINGE SQ SCH ×4 (00:57→23:05)
[2022-12-08 06:35] LABS: Glucose,Whole Blood 218 mg/dL (70-110)
[2022-12-08] MEDS: INSULIN ASPART (NovoLOG) 100 UNIT/ML VIAL SQ SCH ×4 (06:39→21:04)
[2022-12-08] MEDS: FAMOTIDINE 20 MG/2 ML VIAL IV SCH (09:35)
[2022-12-08] MEDS: MEMANTINE 5 MG TAB PO SCH ×2 (09:36→21:04)
[2022-12-08] MEDS: DOCUSATE 100 MG CAP PO SCH ×2 (09:36→21:04)
[2022-12-08] MEDS: amLODIPine 5 MG TAB PO SCH (09:36)
[2022-12-08] MEDS: ACETAMINOPHEN TAB 325 MG TAB PO PRN (09:36)
[2022-12-08] MEDS: CARBIDOPA-LEVODOPA ER 50-200MG 1 EACH TABLET.ER PO SCH ×2 (09:36→21:04)
[2022-12-08] MEDS: COLCHICINE 0.6 MG EACH PO SCH ×2 (09:37→21:04)
[2022-12-08 10:05] LABS: African American GFR (CKD) >90 (>60 ml/min/1.73 sqM); Anion Gap 11 mmol/L; Blood Urea Nitrogen 9 mg/dL (9-20); Carbon Dioxide 23 mmol/L (22-30); Chloride 99 mmol/L (98-107); Glucose 223 mg/dL (74-99); Magnesium 1.5 mg/dL (1.6-2.3); Non-African American GFR(CKD) >90 (>60 ml/min/1.73 sqM); Potassium 4.1 mmol/L (3.5-5.1); Sodium 133 mmol/L (137-145)
[2022-12-08 10:42] LABS: Basophils % (A) 0 %; Eosinophils # (A) 0.1 k/uL (0-0.7); Eosinophils % (A) 1 %; HCT 35.2 % (39.0-53.0); HGB 11.6 gm/dL (13.0-17.5); Lymphocytes # (A) 0.8 k/uL (1.0-4.8); Lymphocytes % (A) 7 %; MCH 30.1 pg (25.0-35.0); MCHC 32.9 g/dL (31.0-37.0); MCV 91.5 fL (80.0-100.0); Monocytes # (A) 0.8 k/uL (0-1.0); Monocytes % (A) 7 %; Neutrophils % (A) 83 %; Platelet Count 164 k/uL (150-450); RBC 3.84 m/uL (4.30-5.90); RDW 12.9 % (11.5-15.5); WBC 10.8 k/uL (3.8-10.6)
[2022-12-08 12:01] LABS: Glucose,Whole Blood 219 mg/dL (70-110)
[2022-12-08] MEDS: NON FORMULARY DRUG (Mirabegron [Myrbetriq] 50 MG Tab.Er.24h) PO SCH (13:21)
[2022-12-08] MEDS: MAGNESIUM SULFATE-D5W PMX 1 GM in DEXTROSE/WATER 1 100ML.BAG IVPB SCH ×2 (14:02→15:10)
--- NOTE | 2022-12-08 15:03 | P.PN ---
Subjective Patient is a 82-year-old male with a known history of hypertension, diabetes type 2, Parkinson's disease and recent battery replacement of the brain stimulator presents to ER due to increased confusion and altered mental status. According to the family patient is not acting appropriately as per his baseline. Symptoms have been present throughout yesterday. Patient has been very weak and not eating well. Otherwise patient is unable to provide any history. Awake alert and follows simple commands. Patient has been afebrile. Pulse ox 93% on room air. Blood pressure 147/52. Chest x-ray showed no acute process. Pelvic x-ray showed no acute osseous abnormality. EKG showed atrial paced rhythm. Laboratory data showed WBC 18.1 hemoglobin 11.2 and platelets 224 Sodium 131 potassium 5.0 chloride 80 BUN 28 and creatinine 0.83 and blood sugar is 221. Lactic acid 3.2 on admission magnesium 1.3 Urinalysis showed trace protein moderate leukocyte esterase and elevated WBCs. Many bacteria. 12/06/2022 This is a pleasant 10 years old male with past medical history of Parkinson disease. Family at bedside including and daughter. Patient recently had nerve stimulator placed into his brain and spine for his tremor from Parkinson disease which was done about one week accordingly [facility], patient looks is doing well regarding this. However he came because of confusion. As per family at bedside he was almost obtunded and unresponsive and nonverbal on the presentation now he is improved, he is up in bed but still somewhat confused and lethargic. He is awake and oriented to place as he knows he is in [facility]. He couldn't tell the year 2022 but he could not tell the exact date or the name of the president but he couldn't recognize his family members with names. He follows commands. As per family is getting close to baseline and family were considering taking him home today. Family they don't want him to be transferred to [facility] if indicated. Patient is not eating well and swallow evaluation is requested as well as x-ray barium swallow which is pending now Blood pressure on the high side and Norvasc is added. improving including sodium level as well as WBC is back to normal today. Physical therapy evaluation 12/07/2022 Patient mentation is improving, his sitting in chair looks relaxed, family at bedside including daughter and think patient is improving as well. He still picking up his swallowing slowly and he was starting eating today we'll keep monitoring. His swallow study and x-ray showing normal results. Patient placed on a special diet. He is a still been treated for UTI with ceftriaxone. He had fever yesterday. No more fever today. Since start eating we will discontinue IV fluids 12/08/2022 Patient clinically looks the same as of yesterday, awake and alert, he has poor interactions with slight improvement every day. Daughter at bedside thinks he is total better compared to yesterday. He is tolerating diet slowly and gradually but not to the Goal yet. Swallow evaluation study was unremarkable. History has fever of 99.9 although he is on ceftriaxone for possible UTI. Urine culture came back unremarkable. Bladder scan is negative at 53. We will consult ID team given his persistent fever Objective - Vital Signs Vital signs: Vital Signs Temp 99.9 F H 12/08/22 07:11 Pulse 75 12/08/22 08:00 Resp 18 12/08/22 08:00 BP 175/77 12/08/22 07:11 Pulse Ox 91 L 12/08/22 07:58 FiO2 Intake & Output 12/07/22 12/08/22 12/08/22 18:59 06:59 18:59 Output Total 410 Balance -410 Output: Urine 410 Other: Voiding Method Urinal External Catheter # Voids 4 - Exam -GENERAL: The patient is alert and oriented x-.3, somewhat lethargic, not in any acute distress. Well developed, well nourished. HEENT: Pupils are round and equally reacting to light. EOMI. No scleral icterus. No conjunctival pallor. Normocephalic, atraumatic. No pharyngeal erythema. No thyromegaly. CARDIOVASCULAR: S1 and S2 present. No murmurs, rubs, or gallops. PULMONARY: Chest is clear to auscultation, no wheezing , no crackles. ABDOMEN: Soft, nontender, nondistended, normoactive bowel sounds. No palpable organomegaly. MUSCULOSKELETAL: No joint swelling or deformity. EXTREMITIES: No cyanosis, clubbing, or pedal edema. NEUROLOGICAL: Gross neurological examination did not reveal any focal deficits. SKIN: No rashes. no petechiae. - Labs CBC & Chem 7: 12/08/22 09:08 12/08/22 09:08 Labs: Abnormal Lab Results - Last 24 Hours (Table) 12/07/22 12/07/22 12/08/22 Range/Units 16:54 20:42 06:33 WBC (3.8-10.6) k/uL RBC (4.30-5.90) m/uL Hgb (13.0-17.5) gm/dL Hct (39.0-53.0) % Neutrophils # (1.3-7.7) k/uL Lymphocytes # (1.0-4.8) k/uL Sodium (137-145) mmol/L Creatinine (0.66-1.25) mg/dL Glucose (74-99) mg/dL POC Glucose (mg/dL) 179 H 176 H 218 H (70-110) mg/dL Calcium (8.4-10.2) mg/dL Magnesium (1.6-2.3) mg/dL 12/08/22 12/08/22 12/08/22 Range/Units 09:08 09:08 11:59 WBC 10.8 H (3.8-10.6) k/uL RBC 3.84 L (4.30-5.90) m/uL Hgb 11.6 L (13.0-17.5) gm/dL Hct 35.2 L (39.0-53.0) % Neutrophils # 9.0 H (1.3-7.7) k/uL Lymphocytes # 0.8 L (1.0-4.8) k/uL Sodium 133 L (137-145) mmol/L Creatinine 0.64 L (0.66-1.25) mg/dL Glucose 223 H (74-99) mg/dL POC Glucose (mg/dL) 219 H (70-110) mg/dL Calcium 8.0 L (8.4-10.2) mg/dL Magnesium 1.5 L (1.6-2.3) mg/dL Microbiology - Last 24 Hours (Table) 12/06/22 19:20 Blood Culture - Preliminary Blood Assessment and Plan Assessment: Altered mental status likely due to metabolic encephalopathy Possible urinary tract infection Hypovolemic hyponatremia Recent adjustment of brain stimulator x2. Lactic acidosis likely due to tissue hypoperfusion Hypomagnesemia Hyperglycemia with uncontrolled diabetes type 2 Memory impairment/dementia Parkinson disease History of renal stones Hyperlipidemia Plan: Continue with gentle hydration and lab work normal saline to 40 mL/h Continue with ceftriaxone follow-up culture results Continue with neuro check. The suspicion mentation is improving significantly we'll keep monitoring now on hold for further workup. Neurology evaluation still undergoing, barium swallow is pending And [facility] for blood pressure with monitoring Consult ID team Labs and medication were reviewed.. Continue same treatment. Continue with sy mptomatic treatment. Resume home medication. Monitor labs and vitals. DVT and GI prophylaxis. Further recommendations as per clinical course of the patient DVT prophylaxis: Mechanical GI Prophylaxis: Pepcid PT/OT: Pending Prognosis is guarded
[2022-12-08 16:52] LABS: Glucose,Whole Blood 221 mg/dL (70-110)
[2022-12-08] MEDS: MAGNESIUM OXIDE 400 MG TAB PO SCH ×2 (17:19→21:04)
[2022-12-08 20:57] LABS: Glucose,Whole Blood 212 mg/dL (70-110)
[2022-12-08] MEDS: DONEPEZIL 10 MG TAB PO SCH (21:04)
[2022-12-08] MEDS: ASPIRIN 81 MG PO SCH (21:04)
[2022-12-08] MEDS: ATORVASTATIN 10 MG TAB PO SCH (21:04)
[2022-12-08] MEDS: LOSARTAN 50 MG TAB PO SCH (21:04)
--- NOTE | 2022-12-08 22:43 | P.CONS ---
History of Present Illness - Reason for Consult Consult date: 12/08/22 - History of Present Illness Patient is a 82-year-old male with a past medical history significant for hypertension type 2 diabetes mellitus Parkinson disease patient recently did have a battery replacement of the brain stimulator for his Parkinson disease presenting to the ER for evaluation of increased confusion and mental status changes symptom has been going on for a day before the patient was brought into the hospital no clear history of any fever or any chills patient presented to the hospital was afebrile he did have a low-grade fever 100.6 on 12/06/2022 and a low-grade fever of 99.9 this morning patient did have mild hypoxemia currently on a 2 L nasal cannula oxygen and the patient family has reported mild cough but no evidence of any sputum production there has been concern for possible patient choking on the food however his diet has been adjusted and the symptom has been improved no vomiting or diarrhea has been reported patient did have white count of 18.1 on admission that did improve slightly up to 10.8 today creatinine has been normal liver enzymes are normal he did have a positive UA with moderate leukocyte esterase 22 WBC patient did have a urine culture though has been negative so far blood cultures are currently pending patient did have a chest x- ray no acute cardiopulmonary process patient also have swallow evaluation which was a normal study infectious disease was consulted today with concern for fever and slow to improve most information has been obtained from review the chart talking to the family at the bedside as the patient himself was not a very good historian Past Medical History Past Medical History: Diabetes Mellitus, Hyperlipidemia, Hypertension, Memory Impairment, Musculoskeletal Disorder Additional Past Medical History / Comment(s): parkinson's, parathyroid dysfunction, kidney stones History of Any Multi-Drug Resistant Organisms: None Reported Additional Past Surgical History / Comment(s): parathyroid cyst removed, deep brain stimulation, colonoscopy Past Anesthesia/Blood Transfusion Reactions: No Reported Reaction Past Psychological History: No Psychological Hx Reported Past Alcohol Use History: Rare Past Drug Use History: None Reported - Past Family History Mother Family Medical History: Dementia Medications and Allergies Home Medications Medication Instructions Recorded Confirmed Type Aspirin EC [Ecotrin Low Dose] 81 mg PO HS 09/04/17 12/04/22 History Donepezil [Aricept] 10 mg PO HS 09/04/17 12/04/22 History Losartan Potassium 50 mg PO HS 09/04/17 12/04/22 History Simvastatin [Zocor] 20 mg PO HS 09/04/17 12/04/22 History metFORMIN HCL [Glucophage] 1,000 mg PO BID 09/04/17 12/04/22 History Glimepiride [Amaryl] 1 mg PO BID 12/14/18 12/04/22 History Memantine [Namenda] 5 mg PO BID 07/21/19 12/04/22 History Colchicine [Colcrys] 0.6 mg PO BID 12/04/22 12/04/22 History Mirabegron [Myrbetriq] 50 mg PO DAILY 12/04/22 12/04/22 History methylPREDNISolone Dose Pack See Taper PO DIRECTED 12/04/22 12/04/22 History [Medrol Dose Pack] Carbidopa-Levodopa ER 50-200Mg 1 tab PO BID 12/05/22 12/05/22 History [Sinemet CR 50-200 mg] Allergies Allergy/AdvReac Type Severity Reaction Status Date / Time Penicillins Allergy Rash/Hives Verified 12/04/22 22:56 Physical Exam Vitals: Vital Signs Temp Pulse Resp BP Pulse Ox 12/08/22 08:00 75 18 12/08/22 07:58 91 L 12/08/22 07:11 99.9 F H 75 18 175/77 91 L 12/08/22 01:34 98.3 F 63 125/62 91 L 12/07/22 19:40 98.5 F 65 18 180/75 92 L Intake and Output 12/08/22 12/08/22 12/08/22 06:59 14:59 22:59 Output Total 410 Balance -410 Output: Urine 410 Other: Voiding Method External Catheter Results CBC & Chem 7: 12/08/22 09:08 12/08/22 09:08 Labs: Abnormal Lab Results - Last 24 Hours (Table) 12/07/22 12/07/22 12/08/22 Range/Units 16:54 20:42 06:33 WBC (3.8-10.6) k/uL RBC (4.30-5.90) m/uL Hgb (13.0-17.5) gm/dL Hct (39.0-53.0) % Neutrophils # (1.3-7.7) k/uL Lymphocytes # (1.0-4.8) k/uL Sodium (137-145) mmol/L Creatinine (0.66-1.25) mg/dL Glucose (74-99) mg/dL POC Glucose (mg/dL) 179 H 176 H 218 H (70-110) mg/dL Calcium (8.4-10.2) mg/dL Magnesium (1.6-2.3) mg/dL 12/08/22 12/08/22 12/08/22 Range/Units 09:08 09:08 11:59 WBC 10.8 H (3.8-10.6) k/uL RBC 3.84 L (4.30-5.90) m/uL Hgb 11.6 L (13.0-17.5) gm/dL Hct 35.2 L (39.0-53.0) % Neutrophils # 9.0 H (1.3-7.7) k/uL Lymphocytes # 0.8 L (1.0-4.8) k/uL Sodium 133 L (137-145) mmol/L Creatinine 0.64 L (0.66-1.25) mg/dL Glucose 223 H (74-99) mg/dL POC Glucose (mg/dL) 219 H (70-110) mg/dL Calcium 8.0 L (8.4-10.2) mg/dL Magnesium 1.5 L (1.6-2.3) mg/dL Microbiology - Last 24 Hours (Table) 12/06/22 19:20 Blood Culture - Preliminary Blood Assessment and Plan Plan: 1patient presented to hospital with mental status changes patient did have a low-grade fever did have a positive however urine culture subsequently came back negative. Also concern for possible choking on the food however as well evaluation was negative for any aspiration initial chest x-ray was negative concern is possibly for aspiration pneumonitis versus UTI patient abdominal was soft clinical examination and the patient craniotomy site looks clean with no evidence of any cellulitis no evidence of any cellulitis or joint swelling. 2we will repeat a chest x-ray, check a CRP procalcitonin and repeat a UA 3-discontinue Rocephin and start the patient on cefepime We will follow on clinical condition and cultures to further adjust medication if needed Family at the bedside multiple questions concerns were answered Thank you for this consultation we will follow the patient along with you Dictation was produced using [employer] software. please excuse any grammatical, word or spelling errors. Time with Patient: Greater than 30
[2022-12-08] MEDS: CEFEPIME 2 GM in SODIUM CHLORIDE 0.9% 100 ML IVPB SCH (23:05)
[2022-12-08 23:40] LABS: Appearance,Urine Clear (Clear); Bilirubin,Urine Negative (Negative); Blood,Urine Negative (Negative); Color,Urine Yellow; Glucose,Urine (UA) 2+ (Negative); Leukocyte Esterase,Urine Trace (Negative); Mucus,Urine Rare /hpf; Nitrite,Urine Negative (Negative); PH, Urine 5.5 (5.0-8.0); Protein,Urine Trace (Negative); RBC,Urine 8 /hpf (0-5); Urobilinogen,Urine <2.0 mg/dL (<2.0); WBC,Urine 8 /hpf (0-5)
[2022-12-08 23:46] LABS: Ketones,Urine 2+ (Negative)
[2022-12-09 05:40] LABS: Glucose,Whole Blood 216 mg/dL (70-110)
[2022-12-09] MEDS: INSULIN ASPART (NovoLOG) 100 UNIT/ML VIAL SQ SCH ×4 (06:53→21:30)
[2022-12-09] MEDS: NON FORMULARY DRUG (Mirabegron [Myrbetriq] 50 MG Tab.Er.24h) PO SCH (08:04)
--- NOTE | 2022-12-09 08:32 | XR ---
EXAMINATION TYPE: XR chest 1V portable DATE OF EXAM: 12/09/2022 8:25 AM COMPARISON: Chest radiographs from 12/04/2022 TECHNIQUE: XR chest 1V portable Portable AP radiograph of the chest. CLINICAL INDICATION:Male, 82 years old with history of pneumonia; FINDINGS: Lungs/Pleura: Bibasilar airspace opacities. No pneumothorax pleural effusion. Pulmonary vascularity: Unremarkable. Heart/mediastinum: Cardiomediastinal silhouette is enlarged and stable. Musculoskeletal: No acute osseous pathology. Other findings: Enteric contrast material within the colon from prior barium swallow. Bilateral chest electronic device is identified. IMPRESSION: Cardiomegaly with patchy bibasilar airspace opacities which may represent atelectasis versus infiltra emir in the appropriate clinical setting.
[2022-12-09] MEDS: CEFEPIME 2 GM in SODIUM CHLORIDE 0.9% 100 ML IVPB SCH ×2 (08:56→21:21)
[2022-12-09] MEDS: FAMOTIDINE 20 MG/2 ML VIAL IV SCH (09:00)
[2022-12-09] MEDS: COLCHICINE 0.6 MG EACH PO SCH ×2 (10:21→21:21)
[2022-12-09] MEDS: DOCUSATE 100 MG CAP PO SCH ×2 (10:21→21:22)
[2022-12-09] MEDS: CARBIDOPA-LEVODOPA ER 50-200MG 1 EACH TABLET.ER PO SCH ×2 (10:21→21:21)
[2022-12-09] MEDS: amLODIPine 5 MG TAB PO SCH (10:21)
[2022-12-09] MEDS: HEPARIN SODIUM,PORCINE/PF 5,000 UNIT/0.5 ML SYRINGE SQ SCH ×3 (10:21→23:36)
[2022-12-09] MEDS: MEMANTINE 5 MG TAB PO SCH ×2 (10:21→21:21)
[2022-12-09] MEDS: MAGNESIUM OXIDE 400 MG TAB PO SCH ×3 (10:21→23:05)
[2022-12-09 11:28] LABS: Glucose,Whole Blood 254 mg/dL (70-110)
[2022-12-09 11:30] LABS: C Reactive Protein 12.9 mg/dL (0.00-0.80); Magnesium 1.8 mg/dL (1.5-2.4)
[2022-12-09 12:04] LABS: Basophils # (A) 0.06 X 10*3/uL (0.00-0.10); Basophils % (A) 0.6 %; Eosinophils # (A) 0.12 X 10*3/uL (0.04-0.35); Eosinophils % (A) 1.1 %; HCT 34.1 % (39.6-50.0); HGB 11.1 d/dL (12.0-15.0); Lymphocytes % (A) 7.4 %; MCH 29.4 pg (27.0-32.0); MCHC 32.6 d/dL (32.0-37.0); MCV 90.2 FL (80.0-97.0); Mean Platelet Volume 10.7 FL (9.5-12.2); Monocytes # (A) 1.03 X 10*3/uL (0.20-1.00); Monocytes % (A) 9.6 %; NRBC Per 100 WBC 0 X 10*3/uL (0.00-0.01); Neutrophils # (A) 8.68 X 10*3/uL (1.80-7.70); Neutrophils % (A) 80.8 %; Platelet Count 216 X 10*3/uL (140-440); RBC 3.78 X 10*6/uL (4.40-5.60); RBC Morphology Normal (Normal); RDW 12.5 % (11.5-14.5); WBC 10.74 X 10*3/uL (4.50-10.00)
--- NOTE | 2022-12-09 12:12 | P.CONS ---
History of Present Illness - Reason for Consult Consult date: 12/09/22 rehab recommendations - Chief Complaint altered mental status, weakness - History of Present Illness Mr. Knight is an 82-year-old male right-handed lives in a two-story home with his with 3 steps to enter through the garage. Patient resides on the main floor. Most recently ambulated with a 4 wheeled walker, needing supervision for bathing and lower body dressing. Patient does not drive. Patient's is available 24 7, patient has 4 children who are local and available in the evenings for help. Patient with a past medical history significant for hypertension type 2 diabetes mellitus, Parkinson disease. patient recently did have a battery replacement of the brain stimulator for his Parkinson disease.patient presented to [facility] on 12/04/2022 via EMS for evaluation of increased confusion and mental status changes. Per Family, approximately one week ago the patient had plenty of his brain stimulator batteries placed on his right side of his chest a s well as repositioning of one of the leads in the right side of his brain. The patient had been having issues with increased tremors, decreased mobility and difficulty with ADLs for the past couple of weeks prior to the surgery. The neurologist was aware, sees Dr. Álvarez outpatient, but sees Mikki josuenttyrel at [place] for the stimulator. The procedure was performed outpatient, and patient was discharged home. The patient continued to have issues with mobility and ADLs, became increasingly confused at which point the family brought him into the hospital for evaluation. Patient initially was afebrile, but developed a low-grade fever over the past couple of days. He was started on 2 L of oxygen nasal cannula for mild hypoxemia. He has a chronic cough with difficulty clearing his sputum at baseline. He was evaluated by speech therapy and his diet was modified to dysphagia 2 with nectar thick liquids, one-on-one and aspiration precautions. He was started on antibiotics f or possible UTI, WBC was elevated at 22. Chest x-ray revealed no acute cardiopulmonary process. PM&R consult and for rehabilitation recommendations. Patient seen by therapies, max assist 2/dependent for bed mobility, dependent for sit to stand and transfers, bathing max assist, upper body dressing max assist, lower body dressing total assist. At this time patient is currently not ambulating. CT evaluated, continue dysphagia 2 with nectar thick liquids, one-to-one assist, needing mod assist for eating. 12/09/22: Patient seen sitting up in chair reclined, , daughter, grandson at the bedside. Patient appears very fatigued, per family patient did not sleep well, and was up at 5:30 this morning. Patient with decreased alertness, difficulty participating with questioning and exam. Family reports that he is doing really well with his stimulator for the past 5 years. Family reports that patient had significant left-sided weakness and tremors which prompted them to get the battery exchanged in the lead replaced. Patient's is able to provide assistance, patient's children are all teachers and will be returning back to school in a couple of weeks, therefore they will be unable to assist until the evening hours. Patient's daughter reports that he can be ornery at times and difficulty following commands, but does need a lot of cues. He has been able to move his legs. Review of Systems Difficult to assess due to cognition. Past Medical History Past Medical History: Diabetes Mellitus, Hyperlipidemia, Hypertension, Memory Impairment, Musculoskeletal Disorder Additional Past Medical History / Comment(s): parkinson's, parathyroid dysfunction, kidney stones History of Any Multi-Drug Resistant Organisms: None Reported Additional Past Surgical History / Comment(s): parathyroid cyst removed, deep brain stimulation, colonoscopy Past Anesthesia/Blood Transfusion Reactions: No Reported Reaction Past Psychological History: No Psychological Hx Reported Past Alcohol Use History: Rare Past Drug Use History: None Reported - Past Family History Mother Family Medical History: Dementia Medications and Allergies Home Medications Medication Instructions Recorded Confirmed Type Aspirin EC [Ecotrin Low Dose] 81 mg PO HS 09/04/17 12/04/22 History Donepezil [Aricept] 10 mg PO HS 09/04/17 12/04/22 History Losartan Potassium 50 mg PO HS 09/04/17 12/04/22 History Simvastatin [Zocor] 20 mg PO HS 09/04/17 12/04/22 History metFORMIN HCL [Glucophage] 1,000 mg PO BID 09/04/17 12/04/22 History Glimepiride [Amaryl] 1 mg PO BID 12/14/18 12/04/22 History Memantine [Namenda] 5 mg PO BID 07/21/19 12/04/22 History Colchicine [Colcrys] 0.6 mg PO BID 12/04/22 12/04/22 History Mirabegron [Myrbetriq] 50 mg PO DAILY 12/04/22 12/04/22 History methylPREDNISolone Dose Pack See Taper PO DIRECTED 12/04/22 12/04/22 History [Medrol Dose Pack] Carbidopa-Levodopa ER 50-200Mg 1 tab PO BID 12/05/22 12/05/22 History [Sinemet CR 50-200 mg] Allergies Allergy/AdvReac Type Severity Reaction Status Date / Time Penicillins Allergy Rash/Hives Verified 12/04/22 22:56 Physical Exam Vitals: Vital Signs Temp Pulse Resp BP Pulse Ox 12/09/22 10:39 98.1 F 12/09/22 08:10 96 12/09/22 08:00 79 14 12/09/22 07:43 100.3 F H 79 14 144/70 92 L 12/09/22 01:18 97.6 F 63 18 142/67 95 12/08/22 20:16 99.3 F 70 17 152/67 96 12/08/22 15:31 97.6 F 62 19 162/75 95 Intake and Output 12/08/22 12/09/22 12/09/22 22:59 06:59 14:59 Intake Total 300 Output Total 350 Balance -50 Intake: Intake, IV Titration 300 Amount Magnesium Sulfate-D5w Pmx 100 1 gm In Dextrose/Water 1 100ml.bag @ 100 mls/hr IVPB ONCE ONE Rx#: [id number] Magnesium Sulfate-D5w Pmx 100 1 gm In Dextrose/Water 1 100ml.bag @ 100 mls/hr IVPB Q1H [facility] Rx#: [id number] metroNIDAZOLE-NS PMX 500 100 mg In Saline 1 100ml.bag @ 100 mls/hr IVPB Q8H [facility] Rx#:[id number] Output: Urine 350 Other: Voiding Method External Catheter # Voids 3 General: Well-developed, well-nourished, elderlu male sitting in recliner with his legs elevated, in no acute distress, eyes closed. , daughter and grandson at bedside HEENT: right posterior surgical incision, external ears intact, hearing intact to conversational speech Cardiovascular: B/L calves are supple, nontender, no cords, without peripheral edema, no cardiac distress Respiratory: Even and unlabored breathing on O2 via NC Abdomen: Soft, nontender, nondistended Genitourinary: Koehler catheter intact Musculoskeletal: Difficulty assessing due to intermittently following commands. Moves extremities to antigravity MMT UE Sh Abd EE EF FABD WE HG Right 5 5 5 5 Left 5 5 5 5 MMT LE HF KE DF EHL Right 3 3 5 Left 3 3 5 Skin: Skin intact where visible to head, neck, and bilateral upper and lower extremities EXCEPT: PIV Neurological: Alert and oriented x self. Unable to assess cranial nerves due to participation with exam, rarely opens eyes. Unable to assess reflexes due to pushing/kicking reflex hammer away Reflexes Biceps Triceps Brachioradialis Patella Achilles Babinski Hoffmans Right Left Psychiatric: slightly uncooperative at times, limited participation at times, Growling at daughter when asked orientation questions Results CBC & Chem 7: 12/08/22 09:08 12/08/22 09:08 Labs: Abnormal Lab Results - Last 24 Hours (Table) 12/08/22 12/08/22 12/08/22 Range/Units 11:59 16:50 20:54 POC Glucose (mg/dL) 219 H 221 H 212 H (70-110) mg/dL C-Reactive Protein (0.00-0.80) mg/dL Urine Protein (Negative) Urine Glucose (UA) (Negative) Urine Ketones (Negative) Ur Leukocyte Esterase (Negative) Urine RBC (0-5) /hpf Urine WBC (0-5) /hpf Urine Mucus (None) /hpf 12/08/22 12/09/22 12/09/22 Range/Units 22:06 05:38 06:48 POC Glucose (mg/dL) 216 H (70-110) mg/dL C-Reactive Protein 12.90 H (0.00-0.80) mg/dL Urine Protein Trace H (Negative) Urine Glucose (UA) 2+ H (Negative) Urine Ketones 2+ H (Negative) Ur Leukocyte Esterase Trace H (Negative) Urine RBC 8 H (0-5) /hpf Urine WBC 8 H (0-5) /hpf Urine Mucus Rare H (None) /hpf 12/09/22 Range/Units 11:21 POC Glucose (mg/dL) 254 H (70-110) mg/dL C-Reactive Protein (0.00-0.80) mg/dL Urine Protein (Negative) Urine Glucose (UA) (Negative) Urine Ketones (Negative) Ur Leukocyte Esterase (Negative) Urine RBC (0-5) /hpf Urine WBC (0-5) /hpf Urine Mucus (None) /hpf Microbiology - Last 24 Hours (Table) 12/06/22 19:20 Blood Culture - Preliminary Blood Assessment and Plan Assessment: #Parkinson's disease exacerbation status post battery exchange for stimulator and repositioning of cranial wire -On Sinemet #Impaired gait and ADLs secondary to above #Altered mental status, likely metabolic # Possible UTI, status post abx # Dysphagia -Dysphagia II with NTL, 1:1, aspiration precautions # Leukocytosis # Dementia -Aricept #Comorbidities: DM-2, HLD, HTN #Bowel/ Bladder: Nursing to monitor and report concerns if any. #Skin/wound: Skin/Wound care to follow as needed. #Pain Management: Tylenol 650 mg every 4 when necessary -Patient does not appear to be in any acute distress or pain. #DVT Prophylaxis:Heparin #Your medical dx and mgt Goals: Modified Independent mobility and ADLS both basic and advanced; increased functional mobility/strength; increased balance, safety, endurance. Improvement in medical issues through your care. Barriers: cognition, endurance, balance Discharge recommendation: At this time, patient having difficulty staying awake, following commands, and participating with exam. Unsure that patient will be able to tolerate the intensity of IPR, unless he shows some functional improvements and participation. Reviewed therapy notes, patient is max to dependent with bed mobility, sit to stands, transfers, LB dressing. Discussed this with family, he may be more appropriate for [facility] if he does not show improvements in the next couple of days. There is currently no bed available at [facility], if he were a candidate. Discussed with SW. Prognosis is Guarded . Patient seen and examined in coordination with Dr Robson Long/ Mavis Land PA-C Thank you for this consultation.
[2022-12-09 12:40] LABS: Glucose,Whole Blood 222 mg/dL (70-110)
--- NOTE | 2022-12-09 13:37 | P.PN ---
Subjective Patient is a 82-year-old male with a known history of hypertension, diabetes type 2, Parkinson's disease and recent battery replacement of the brain stimulator presents to ER due to increased confusion and altered mental status. According to the family patient is not acting appropriately as per his baseline. Symptoms have been present throughout yesterday. Patient has been very weak and not eating well. Otherwise patient is unable to provide any history. Awake alert and follows simple commands. Patient has been afebrile. Pulse ox 93% on room air. Blood pressure 147/52. Chest x-ray showed no acute process. Pelvic x-ray showed no acute osseous abnormality. EKG showed atrial paced rhythm. Laboratory data showed WBC 18.1 hemoglobin 11.2 and platelets 224 Sodium 131 potassium 5.0 chloride 80 BUN 28 and creatinine 0.83 and blood sugar is 221. Lactic acid 3.2 on admission magnesium 1.3 Urinalysis showed trace protein moderate leukocyte esterase and elevated WBCs. Many bacteria. 12/06/2022 This is a pleasant 10 years old male with past medical history of Parkinson disease. Family at bedside including and daughter. Patient recently had nerve stimulator placed into his brain and spine for his tremor from Parkinson disease which was done about one week accordingly [facility], patient looks is doing well regarding this. However he came because of confusion. As per family at bedside he was almost obtunded and unresponsive and nonverbal on the presentation now he is improved, he is up in bed but still somewhat confused and lethargic. He is awake and oriented to place as he knows he is in [facility]. He couldn't tell the year 2022 but he could not tell the exact date or the name of the president but he couldn't recognize his family members with names. He follows commands. As per family is getting close to baseline and family were considering taking him home today. Family they don't want him to be transferred to [facility] if indicated. Patient is not eating well and swallow evaluation is requested as well as x-ray barium swallow which is pending now Blood pressure on the high side and Norvasc is added. improving including sodium level as well as WBC is back to normal today. Physical therapy evaluation 12/07/2022 Patient mentation is improving, his sitting in chair looks relaxed, family at bedside including daughter and think patient is improving as well. He still picking up his swallowing slowly and he was starting eating today we'll keep monitoring. His swallow study and x-ray showing normal results. Patient placed on a special diet. He is a still been treated for UTI with ceftriaxone. He had fever yesterday. No more fever today. Since start eating we will discontinue IV fluids 12/08/2022 Patient clinically looks the same as of yesterday, awake and alert, he has poor interactions with slight improvement every day. Daughter at bedside thinks he is total better compared to yesterday. He is tolerating diet slowly and gradually but not to the Goal yet. Swallow evaluation study was unremarkable. History has fever of 99.9 although he is on ceftriaxone for possible UTI. Urine culture came back unremarkable. Bladder scan is negative at 53. We will consult ID team given his persistent fever 12/09/2022 Patient remains lethargic and difficulty eating, staying away R, and patient has evidence of bilateral aspiration pneumonia. Patient currently covered with cefepime Because of his severe lethargy and mentation change is not a good candidate for inpatient rehab otherwise he might benefit from subacute rehab, mental health social worker of the case. Family at bedside and questions were answered Correction: Body and swallow x-ray showing silent aspiration with thin liquids therefore patient was switched to oral thick liquid texture. It was my mistake mentioned: Normal study in the impression section (confirmed and discussed with speech therapist) Case was discussed with family members, therapist, also I discussed the case with infectious disease team Active Medications Generic Name Dose Route Start Last Admin Trade Name Freq PRN Reason Stop Dose Admin Acetaminophen 650 mg 12/06/22 18:51 12/08/22 09:36 Acetaminophen Tab 325 Mg Tab PO 650 mg Q4HR PRN Administration Fever and/ or Mild Pain Amlodipine Besylate 5 mg 12/06/22 13:15 12/09/22 10:21 Amlodipine 5 Mg Tab PO 5 mg DAILY SHARRON Administration Aspirin 81 mg 12/05/22 21:00 12/08/22 21:04 Aspirin 81 Mg PO 81 mg HS SHARRON Administration Atorvastatin Calcium 10 mg 12/05/22 21:00 12/08/22 21:04 Atorvastatin 10 Mg Tab PO 10 mg HS SHARRON Administration Carbidopa/Levodopa 1 each 12/05/22 13:00 12/09/22 10:21 Carbidopa-Levodopa Er 50-200mg 1 Each Tablet.Er PO 1 each BID SHARRON Administration Colchicine 0.6 mg 12/05/22 21:00 12/09/22 10:21 Colchicine 0.6 Mg Each PO 0.6 mg BID SHARRON Administration Dextrose/Water 25 ml 12/05/22 12:30 Dextrose 50% Syringe 50 Ml IVP PER PROTOCOL PRN Hypoglycemia Protocol Dextrose/Water 50 ml 12/05/22 12:30 Dextrose 50% Syringe 50 Ml IVP PER PROTOCOL PRN Hypoglycemia Protocol Docusate Sodium 100 mg 12/06/22 12:45 12/09/22 10:21 Docusate 100 Mg Cap PO 100 mg BID SHARRON Administration Donepezil HCl 10 mg 12/05/22 21:00 12/08/22 21:04 Donepezil 10 Mg Tab PO 10 mg HS SHARRON Administration Famotidine 20 mg 12/07/22 09:00 12/09/22 09:00 Famotidine 20 Mg/2 Ml Vial IV 20 mg DAILY SHARRON Administration Heparin Sodium (Porcine) 5,000 unit 12/06/22 00:00 12/09/22 10:21 Heparin Sodium,Porcine/Pf 5,000 Unit/0.5 Ml Syringe SQ 5,000 unit Q8HR SHARRON Administration Cefepime HCl 2 gm/ Sodium 100 mls @ 25 mls/hr 12/08/22 22:45 12/09/22 08:56 Chloride IVPB 25 mls/hr Q12HR SHARRON Administration Protocol Insulin Aspart 0 unit 12/05/22 12:30 12/09/22 12:43 Insulin Aspart (Novolog) 100 Unit/Ml Vial SQ 4 unit ACHS SHARRON Administration Protocol Losartan Potassium 50 mg 12/05/22 21:00 12/08/22 21:04 Losartan 50 Mg Tab PO 50 mg HS SHARRON Administration Magnesium Oxide 400 mg 12/08/22 16:00 12/09/22 10:21 Magnesium Oxide 400 Mg Tab PO 400 mg TID SHARRON Administration Memantine 5 mg 12/05/22 13:00 12/09/22 10:21 Memantine 5 Mg Tab PO 5 mg BID SHARRON Administration Miscellaneous Information 1 each 12/06/22 13:12 Magnesium Replacement Protocol 1 Each Misc MISCELLANE DAILY PRN Per Protocol Protocol Miscellaneous Information 1 each 12/07/22 17:50 Magnesium Replacement Protocol 1 Each Misc MISCELLANE DAILY PRN Per Protocol Protocol Naloxone HCl 0.2 mg 12/05/22 00:58 Naloxone 0.4 Mg/Ml 1 Ml Vial IV Q2M PRN Opioid Reversal Non-Formulary Medication 50 mg 12/06/22 09:00 12/09/22 08:04 Mirabegron [Myrbetriq] PO Not Given DAILY [facility] Objective - Vital Signs Vital signs: Vital Signs Temp 98.1 F 12/09/22 10:39 Pulse 79 12/09/22 08:00 Resp 14 12/09/22 08:00 BP 144/70 12/09/22 07:43 Pulse Ox 96 12/09/22 08:10 FiO2 Intake & Output 12/08/22 12/09/22 12/09/22 18:59 06:59 18:59 Intake Total 300 Output Total 350 Balance -50 Intake: Intake, IV Titration 300 Amount Magnesium Sulfate-D5w Pmx 100 1 gm In Dextrose/Water 1 100ml.bag @ 100 mls/hr IVPB ONCE ONE Rx#: [id number] Magnesium Sulfate-D5w Pmx 100 1 gm In Dextrose/Water 1 100ml.bag @ 100 mls/hr IVPB Q1H [facility] Rx#: [id number] metroNIDAZOLE-NS PMX 500 100 mg In Saline 1 100ml.bag @ 100 mls/hr IVPB Q8H [facility] Rx#:[id number] Output: Urine 350 Other: Voiding Method External Catheter External Catheter # Voids 3 - Exam -GENERAL: The patient is alert and oriented x-.3, somewhat lethargic, not in any acute distress. Well developed, well nourished. HEENT: Pupils are round and equally reacting to light. EOMI. No scleral icterus. No conjunctival pallor. Normocephalic, atraumatic. No pharyngeal erythema. No thyromegaly. CARDIOVASCULAR: S1 and S2 present. No murmurs, rubs, or gallops. PULMONARY: Chest is clear to auscultation, no wheezing , no crackles. ABDOMEN: Soft, nontender, nondistended, normoactive bowel sounds. No palpable organomegaly. MUSCULOSKELETAL: No joint swelling or deformity. EXTREMITIES: No cyanosis, clubbing, or pedal edema. NEUROLOGICAL: Gross neurological examination did not reveal any focal deficits. SKIN: No rashes. no petechiae. - Labs CBC & Chem 7: 12/09/22 06:48 12/08/22 09:08 Labs: Abnormal Lab Results - Last 24 Hours (Table) 12/08/22 12/08/22 12/08/22 Range/Units 16:50 20:54 22:06 WBC (4.50-10.00) X 10*3/uL RBC (4.40-5.60) X 10*6/uL Hgb (12.0-15.0) d/dL Hct (39.6-50.0) % Neutrophils # (1.80-7.70) X 10*3/uL Lymphocytes # (0.90-5.00) X 10*3/uL Monocytes # (0.20-1.00) X 10*3/uL POC Glucose (mg/dL) 221 H 212 H (70-110) mg/dL C-Reactive Protein (0.00-0.80) mg/dL Urine Protein Trace H (Negative) Urine Glucose (UA) 2+ H (Negative) Urine Ketones 2+ H (Negative) Ur Leukocyte Esterase Trace H (Negative) Urine RBC 8 H (0-5) /hpf Urine WBC 8 H (0-5) /hpf Urine Mucus Rare H (None) /hpf 12/09/22 12/09/22 12/09/22 Range/Units 05:38 06:48 06:48 WBC 10.74 H (4.50-10.00) X 10*3/uL RBC 3.78 L (4.40-5.60) X 10*6/uL Hgb 11.1 L (12.0-15.0) d/dL Hct 34.1 L (39.6-50.0) % Neutrophils # 8.68 H (1.80-7.70) X 10*3/uL Lymphocytes # 0.80 L (0.90-5.00) X 10*3/uL Monocytes # 1.03 H (0.20-1.00) X 10*3/uL POC Glucose (mg/dL) 216 H (70-110) mg/dL C-Reactive Protein 12.90 H (0.00-0.80) mg/dL Urine Protein (Negative) Urine Glucose (UA) (Negative) Urine Ketones (Negative) Ur Leukocyte Esterase (Negative) Urine RBC (0-5) /hpf Urine WBC (0-5) /hpf Urine Mucus (None) /hpf 12/09/22 12/09/22 Range/Units 11:21 12:34 WBC (4.50-10.00) X 10*3/uL RBC (4.40-5.60) X 10*6/uL Hgb (12.0-15.0) d/dL Hct (39.6-50.0) % Neutrophils # (1.80-7.70) X 10*3/uL Lymphocytes # (0.90-5.00) X 10*3/uL Monocytes # (0.20-1.00) X 10*3/uL POC Glucose (mg/dL) 254 H 222 H (70-110) mg/dL C-Reactive Protein (0.00-0.80) mg/dL Urine Protein (Negative) Urine Glucose (UA) (Negative) Urine Ketones (Negative) Ur Leukocyte Esterase (Negative) Urine RBC (0-5) /hpf Urine WBC (0-5) /hpf Urine Mucus (None) /hpf Microbiology - Last 24 Hours (Table) 12/06/22 19:20 Blood Culture - Preliminary Blood Assessment and Plan Assessment: Altered mental status likely due to metabolic encephalopathy Bilateral aspiration pneumonia Possible urinary tract infection, less likely Hypovolemic hyponatremia Recent adjustment of brain stimulator x2. Lactic acidosis likely due to tissue hypoperfusion Hypomagnesemia Hyperglycemia with uncontrolled diabetes type 2 Memory impairment/dementia Parkinson disease History of renal stones Hyperlipidemia Plan: Continue with gentle hydration and lab work normal saline to 40 mL/h Continue with ceftriaxone follow-up culture results Continue with neuro check. The suspicion mentation is improving significantly we'll keep monitoring now on hold for further workup. Neurology evaluation still undergoing, barium swallow is pending And [facility] for blood pressure with monitoring Consult ID team Labs and medication were reviewed.. Continue same treatment. Continue with symptomatic treatment. Resume home medication. Monitor labs and vitals. DVT and GI prophylaxis. Further recommendations as per clinical course of the patient DVT prophylaxis: Mechanical GI Prophylaxis: Pepcid PT/OT: Pending Prognosis is guarded
[2022-12-09 16:20] LABS: Glucose,Whole Blood 230 mg/dL (70-110)
[2022-12-09 20:43] LABS: Glucose,Whole Blood 230 mg/dL (70-110)
[2022-12-09] MEDS: ASPIRIN 81 MG PO SCH (21:20)
[2022-12-09] MEDS: DONEPEZIL 10 MG TAB PO SCH (21:20)
[2022-12-09] MEDS: LOSARTAN 50 MG TAB PO SCH (21:21)
[2022-12-09] MEDS: ATORVASTATIN 10 MG TAB PO SCH (21:21)
[2022-12-10 06:07] LABS: Glucose,Whole Blood 232 mg/dL (70-110)
[2022-12-10] MEDS: INSULIN ASPART (NovoLOG) 100 UNIT/ML VIAL SQ SCH ×4 (06:40→21:18)
--- NOTE | 2022-12-10 07:45 | P.PN ---
Subjective Progress Note Date: 12/09/22 Principal diagnosis: Fever Patient is a 82-year-old male with a past medical history significant for hypertension type 2 diabetes mellitus Parkinson disease patient recently did have a battery replacement of the brain stimulator for his Parkinson disease presenting to the ER for evaluation of increased confusion and mental status changes , patient has been running low-grade fever prompting this infectious disease consultation. On today's evaluation and that is 12/09/2022, patient did have a low-grade fever 100.3 this morning patient is afebrile since then the patient is more awake and alert but the family at the bedside and is breathing comfortably on today's vi sits and oxygen occasional cough no vomiting diarrhea has been reported Objective - Vital Signs Vital signs: Vital Signs Temp 98.1 F 12/09/22 10:39 Pulse 79 12/09/22 08:00 Resp 14 12/09/22 08:00 BP 144/70 12/09/22 07:43 Pulse Ox 96 12/09/22 08:10 FiO2 Intake & Output 12/08/22 12/09/22 12/09/22 18:59 06:59 18:59 Intake Total 300 Output Total 350 Balance -50 Intake: Intake, IV Titration 300 Amount Magnesium Sulfate-D5w Pmx 100 1 gm In Dextrose/Water 1 100ml.bag @ 100 mls/hr IVPB ONCE ONE Rx#: [id number] Magnesium Sulfate-D5w Pmx 100 1 gm In Dextrose/Water 1 100ml.bag @ 100 mls/hr IVPB Q1H [facility] Rx#: [id number] metroNIDAZOLE-NS PMX 500 100 mg In Saline 1 100ml.bag @ 100 mls/hr IVPB Q8H [facility] Rx#:[id number] Output: Urine 350 Other: Voiding Method External Catheter External Catheter # Voids 3 - Exam GENERAL DESCRIPTION: An elderly male lying in bed in no distress RESPIRATORY SYSTEM: Unlabored breathing , decreased breath sounds at bases HEART: S1 S2 regular rate and rhythm , ABDOMEN: Soft , no tenderness EXTREMITIES: No edema feet - Labs CBC & Chem 7: 12/09/22 06:48 12/08/22 09:08 Labs: Abnormal Lab Results - Last 24 Hours (Table) 12/08/22 12/08/22 12/08/22 Range/Units 16:50 20:54 22:06 WBC (4.50-10.00) X 10*3/uL RBC (4.40-5.60) X 10*6/uL Hgb (12.0-15.0) d/dL Hct (39.6-50.0) % Neutrophils # (1.80-7.70) X 10*3/uL Lymphocytes # (0.90-5.00) X 10*3/uL Monocytes # (0.20-1.00) X 10*3/uL POC Glucose (mg/dL) 221 H 212 H (70-110) mg/dL C-Reactive Protein (0.00-0.80) mg/dL Urine Protein Trace H (Negative) Urine Glucose (UA) 2+ H (Negative) Urine Ketones 2+ H (Negative) Ur Leukocyte Esterase Trace H (Negative) Urine RBC 8 H (0-5) /hpf Urine WBC 8 H (0-5) /hpf Urine Mucus Rare H (None) /hpf 12/09/22 12/09/22 12/09/22 Range/Units 05:38 06:48 06:48 WBC 10.74 H (4.50-10.00) X 10*3/uL RBC 3.78 L (4.40-5.60) X 10*6/uL Hgb 11.1 L (12.0-15.0) d/dL Hct 34.1 L (39.6-50.0) % Neutrophils # 8.68 H (1.80-7.70) X 10*3/uL Lymphocytes # 0.80 L (0.90-5.00) X 10*3/uL Monocytes # 1.03 H (0.20-1.00) X 10*3/uL POC Glucose (mg/dL) 216 H (70-110) mg/dL C-Reactive Protein 12.90 H (0.00-0.80) mg/dL Urine Protein (Negative) Urine Glucose (UA) (Negative) Urine Ketones (Negative) Ur Leukocyte Esterase (Negative) Urine RBC (0-5) /hpf Urine WBC (0-5) /hpf Urine Mucus (None) /hpf 12/09/22 12/09/22 Range/Units 11:21 12:34 WBC (4.50-10.00) X 10*3/uL RBC (4.40-5.60) X 10*6/uL Hgb (12.0-15.0) d/dL Hct (39.6-50.0) % Neutrophils # (1.80-7.70) X 10*3/uL Lymphocytes # (0.90-5.00) X 10*3/uL Monocytes # (0.20-1.00) X 10*3/uL POC Glucose (mg/dL) 254 H 222 H (70-110) mg/dL C-Reactive Protein (0.00-0.80) mg/dL Urine Protein (Negative) Urine Glucose (UA) (Negative) Urine Ketones (Negative) Ur Leukocyte Esterase (Negative) Urine RBC (0-5) /hpf Urine WBC (0-5) /hpf Urine Mucus (None) /hpf Microbiology - Last 24 Hours (Table) 12/06/22 19:20 Blood Culture - Preliminary Blood Assessment and Plan (1) Pneumonia Current Visit: Yes Status: Acute Code(s): J18.9 - PNEUMONIA, UNSPECIFIED ORGANISM SNOMED Code(s): 815196492 (2) Urinary tract infection Current Visit: Yes Status: Acute Code(s): N39.0 - URINARY TRACT INFECTION, SITE NOT SPECIFIED SNOMED Code(s): 48721792 Plan: 1patient presented to hospital with mental status changes patient did have a lo w-grade fever did have a positive however urine culture subsequently came back negative. Also concern for possible choking on the food however as well evaluation was negative for any aspiration initial chest x-ray was negative concern is possibly for aspiration pneumonitis versus UTI patient abdominal was soft clinical examination and the patient craniotomy site looks clean with no evidence of any cellulitis no evidence of any cellulitis or joint swelling. 2 chest x-ray basilar infiltrate question of possible pneumonia however the patient did have a normal procalcitonin, CRP is mildly elevated and repeat a UA has shown improvement 3-We will continue the patient on cefepime while waiting for the repeat cultures to be finalize Dictation was produced using [employer] dictation software. please excuse any grammatical, word or spelling errors. Time with Patient: Less than 30
[2022-12-10] MEDS: NON FORMULARY DRUG (Mirabegron [Myrbetriq] 50 MG Tab.Er.24h) PO SCH (08:25)
[2022-12-10] MEDS: HEPARIN SODIUM,PORCINE/PF 5,000 UNIT/0.5 ML SYRINGE SQ SCH ×3 (08:27→23:28)
[2022-12-10] MEDS: COLCHICINE 0.6 MG EACH PO SCH ×2 (08:28→21:19)
[2022-12-10] MEDS: DOCUSATE 100 MG CAP PO SCH ×2 (08:28→21:19)
[2022-12-10] MEDS: MAGNESIUM OXIDE 400 MG TAB PO SCH ×3 (08:28→21:19)
[2022-12-10] MEDS: amLODIPine 5 MG TAB PO SCH (08:28)
[2022-12-10] MEDS: FAMOTIDINE 20 MG/2 ML VIAL IV SCH (08:28)
[2022-12-10] MEDS: MEMANTINE 5 MG TAB PO SCH ×2 (08:28→21:18)
[2022-12-10] MEDS: CEFEPIME 2 GM in SODIUM CHLORIDE 0.9% 100 ML IVPB SCH ×2 (08:28→21:19)
[2022-12-10] MEDS: CARBIDOPA-LEVODOPA ER 50-200MG 1 EACH TABLET.ER PO SCH ×2 (08:28→21:18)
[2022-12-10 11:31] LABS: Glucose,Whole Blood 270 mg/dL (70-110)
--- NOTE | 2022-12-10 11:58 | P.PN ---
Subjective Patient is a 82-year-old male with a known history of hypertension, diabetes type 2, Parkinson's disease and recent battery replacement of the brain stimulator presents to ER due to increased confusion and altered mental status. According to the family patient is not acting appropriately as per his baseline. Symptoms have been present throughout yesterday. Patient has been very weak and not eating well. Otherwise patient is unable to provide any history. Awake alert and follows simple commands. Patient has been afebrile. Pulse ox 93% on room air. Blood pressure 147/52. Chest x-ray showed no acute process. Pelvic x-ray showed no acute osseous abnormality. EKG showed atrial paced rhythm. Laboratory data showed WBC 18.1 hemoglobin 11.2 and platelets 224 Sodium 131 potassium 5.0 chloride 80 BUN 28 and creatinine 0.83 and blood sugar is 221. Lactic acid 3.2 on admission magnesium 1.3 Urinalysis showed trace protein moderate leukocyte esterase and elevated WBCs. Many bacteria. 12/06/2022 This is a pleasant 10 years old male with past medical history of Parkinson disease. Family at bedside including and daughter. Patient recently had nerve stimulator placed into his brain and spine for his tremor from Parkinson disease which was done about one week accordingly [facility], patient looks is doing well regarding this. However he came because of confusion. As per family at bedside he was almost obtunded and unresponsive and nonverbal on the presentation now he is improved, he is up in bed but still somewhat confused and lethargic. He is awake and oriented to place as he knows he is in [facility]. He couldn't tell the year 2022 but he could not tell the exact date or the name of the president but he couldn't recognize his family members with names. He follows commands. As per family is getting close to baseline and family were considering taking him home today. Family they don't want him to be transferred to [facility] if indicated. Patient is not eating well and swallow evaluation is requested as well as x-ray barium swallow which is pending now Blood pressure on the high side and Norvasc is added. improving including sodium level as well as WBC is back to normal today. Physical therapy evaluation 12/07/2022 Patient mentation is improving, his sitting in chair looks relaxed, family at bedside including daughter and think patient is improving as well. He still picking up his swallowing slowly and he was starting eating today we'll keep monitoring. His swallow study and x-ray showing normal results. Patient placed on a special diet. He is a still been treated for UTI with ceftriaxone. He had fever yesterday. No more fever today. Since start eating we will discontinue IV fluids 12/08/2022 Patient clinically looks the same as of yesterday, awake and alert, he has poor interactions with slight improvement every day. Daughter at bedside thinks he is total better compared to yesterday. He is tolerating diet slowly and gradually but not to the Goal yet. Swallow evaluation study was unremarkable. History has fever of 99.9 although he is on ceftriaxone for possible UTI. Urine culture came back unremarkable. Bladder scan is negative at 53. We will consult ID team given his persistent fever 12/09/2022 Patient remains lethargic and difficulty eating, staying away R, and patient has evidence of bilateral aspiration pneumonia. Patient currently covered with cefepime Because of his severe lethargy and mentation change is not a good candidate for inpatient rehab otherwise he might benefit from subacute rehab, social security specialist of the case. Family at bedside and questions were answered Correction: Body and swallow x-ray showing silent aspiration with thin liquids therefore patient was switched to oral thick liquid texture. It was my mistake mentioned: Normal study in the impression section (confirmed and discussed with speech therapist) Case was discussed with family members, therapist, also I discussed the case with infectious disease team 12/10/2022 Patient mentation significantly improving and family is very happy about that including the daughter stating that he hasn't been so good and awake since the last 4 weeks. Patient 8 all his meals this morning. Also patient is following commands and answer some questions better than the last few days. Since patient mentation is improving family would like to be evaluated for inpatient rehab, discussed with the bedside nurse to request evaluation from rehab team No respiratory symptoms. Patient remains on cefepime And Levemir 5 mg for glucose more than 1200. Metformin and Amaryl are on hold Objective - Vital Signs Vital signs: Vital Signs Temp 98.4 F 12/10/22 06:56 Pulse 69 12/10/22 06:56 Resp 17 12/10/22 06:56 BP 170/84 12/10/22 06:56 Pulse Ox 91 L 12/10/22 06:56 FiO2 Intake & Output 12/09/22 12/10/22 12/10/22 18:59 06:59 18:59 Output Total 650 Balance -650 Output: Urine 650 Other: Voiding Method External Catheter External Catheter # Voids 2 1 - Exam -GENERAL: The patient is alert and oriented x-.3, somewhat lethargic, not in any acute distress. Well developed, well nourished. HEENT: Pupils are round and equally reacting to light. EOMI. No scleral icterus. No conjunctival pallor. Normocephalic, atraumatic. No pharyngeal erythema. No thyromegaly. CARDIOVASCULAR: S1 and S2 present. No murmurs, rubs, or gallops. PULMONARY: Chest is clear to auscultation, no wheezing , no crackles. ABDOMEN: Soft, nontender, nondistended, normoactive bowel sounds. No palpable organomegaly. MUSCULOSKELETAL: No joint swelling or deformity. EXTREMITIES: No cyanosis, clubbing, or pedal edema. NEUROLOGICAL: Gross neurological examination did not reveal any focal deficits. SKIN: No rashes. no petechiae. - Labs CBC & Chem 7: 12/09/22 06:48 12/08/22 09:08 Labs: Abnormal Lab Results - Last 24 Hours (Table) 12/09/22 12/09/22 12/09/22 Range/Units 06:48 06:48 12:34 WBC 10.74 H (4.50-10.00) X 10*3/uL RBC 3.78 L (4.40-5.60) X 10*6/uL Hgb 11.1 L (12.0-15.0) d/dL Hct 34.1 L (39.6-50.0) % Neutrophils # 8.68 H (1.80-7.70) X 10*3/uL Lymphocytes # 0.80 L (0.90-5.00) X 10*3/uL Monocytes # 1.03 H (0.20-1.00) X 10*3/uL POC Glucose (mg/dL) 222 H (70-110) mg/dL Procalcitonin <0.20 H (0.02-0.09) ng/mL 12/09/22 12/09/22 12/10/22 Range/Units 16:15 20:41 06:05 WBC (4.50-10.00) X 10*3/uL RBC (4.40-5.60) X 10*6/uL Hgb (12.0-15.0) d/dL Hct (39.6-50.0) % Neutrophils # (1.80-7.70) X 10*3/uL Lymphocytes # (0.90-5.00) X 10*3/uL Monocytes # (0.20-1.00) X 10*3/uL POC Glucose (mg/dL) 230 H 230 H 232 H (70-110) mg/dL Procalcitonin (0.02-0.09) ng/mL 12/10/22 Range/Units 11:29 WBC (4.50-10.00) X 10*3/uL RBC (4.40-5.60) X 10*6/uL Hgb (12.0-15.0) d/dL Hct (39.6-50.0) % Neutrophils # (1.80-7.70) X 10*3/uL Lymphocytes # (0.90-5.00) X 10*3/uL Monocytes # (0.20-1.00) X 10*3/uL POC Glucose (mg/dL) 270 H (70-110) mg/dL Procalcitonin (0.02-0.09) ng/mL Microbiology - Last 24 Hours (Table) 12/06/22 19:20 Blood Culture - Preliminary Blood Assessment and Plan Assessment: Altered mental status likely due to metabolic encephalopathy Bilateral aspiration pneumonia Possible urinary tract infection, less likely Hypovolemic hyponatremia Recent adjustment of brain stimulator x2. Lactic acidosis likely due to tissue hypoperfusion Hypomagnesemia Hyperglycemia with uncontrolled diabetes type 2 Memory impairment/dementia Parkinson disease History of renal stones Hyperlipidemia Plan: Cc normal saline 40 mL/h continue with cefepime ID consult on dysphagia diet with assistance And Norvas for blood pressure with monitoring rehab team consult Labs and medication were reviewed.. Continue same treatment. Continue with symptomatic treatment. Resume home medication. Monitor labs and vitals. DVT and GI prophylaxis. Further recommendations as per clinical course of the patient DVT prophylaxis: Mechanical GI Prophylaxis: Pepcid PT/OT: Pending Prognosis is guarded Possible discharge in 24-48 hours if he keeps improving
[2022-12-10] MEDS: INSULIN DETEMIR (LEVEMIR) 100 UNIT/ML SYR SQ SCH (12:16)
--- NOTE | 2022-12-10 14:25 | P.PN ---
Subjective Progress Note Date: 12/10/22 Principal diagnosis: Fever Patient is a 82-year-old male with a past medical history significant for hypertension type 2 diabetes mellitus Parkinson disease patient recently did have a battery replacement of the brain stimulator for his Parkinson disease presenting to the ER for evaluation of increased confusion and mental status changes , patient has been running low-grade fever prompting this infectious disease consultation. On today's evaluation and that is 12/10/2022, patient is afebrile today, the patient is more awake and alert per the family at the bedside and is breathing comfortably room air, the patient did have occasional cough no vomiting diarrhea has been reported Objective - Vital Signs Vital signs: Vital Signs Temp 98.4 F 12/10/22 06:56 Pulse 69 12/10/22 06:56 Resp 17 12/10/22 06:56 BP 170/84 12/10/22 06:56 Pulse Ox 91 L 12/10/22 06:56 FiO2 Intake & Output 12/09/22 12/10/22 12/10/22 18:59 06:59 18:59 Output Total 650 Balance -650 Output: Urine 650 Other: Voiding Method External Catheter External Catheter # Voids 2 1 - Exam GENERAL DESCRIPTION: An elderly male lying in bed in no distress RESPIRATORY SYSTEM: Unlabored breathing , decreased breath sounds at bases HEART: S1 S2 regular rate and rhythm , ABDOMEN: Soft , no tenderness EXTREMITIES: No edema feet - Labs CBC & Chem 7: 12/09/22 06:48 12/08/22 09:08 Labs: Abnormal Lab Results - Last 24 Hours (Table) 12/09/22 12/09/22 12/09/22 Range/Units 06:48 16:15 20:41 POC Glucose (mg/dL) 230 H 230 H (70-110) mg/dL Procalcitonin <0.20 H (0.02-0.09) ng/mL 12/10/22 12/10/22 Range/Units 06:05 11:29 POC Glucose (mg/dL) 232 H 270 H (70-110) mg/dL Procalcitonin (0.02-0.09) ng/mL Microbiology - Last 24 Hours (Table) 12/06/22 19:20 Blood Culture - Preliminary Blood Assessment and Plan (1) Pneumonia Current Visit: Yes Status: Acute Code(s): J18.9 - PNEUMONIA, UNSPECIFIED ORGANISM SNOMED Code(s): 646771372 (2) Urinary tract infection Current Visit: Yes Status: Acute Code(s): N39.0 - URINARY TRACT INFECTION, SITE NOT SPECIFIED SNOMED Code(s): 32516609 Plan: 1patient presented to hospital with mental status changes patient did have a low-grade fever did have a positive however urine culture subsequently came back negative. Also concern for possible choking on the food however as well evaluation was negative for any aspiration initial chest x-ray was negative concern is possibly for aspiration pneumonitis versus UTI patient abdominal was soft clinical examination and the patient craniotomy site looks clean with no evidence of any cellulitis no evidence of any cellulitis or joint swelling. 2 chest x-ray basilar infiltrate question of possible pneumonia however the patient did have a normal procalcitonin, CRP is mildly elevated and repeat a UA has shown improvement 3-patient seems to have clinical improvement and will continue the patient on cefepime plan to finish therapy with oral Avelox discussed with admitting team Dictation was produced using [employer] dictation software. please excuse any grammatical, word or spelling errors. Time with Patient: Less than 30
[2022-12-10 16:50] LABS: Glucose,Whole Blood 219 mg/dL (70-110)
[2022-12-10 20:03] LABS: Glucose,Whole Blood 224 mg/dL (70-110)
[2022-12-10] MEDS: ATORVASTATIN 10 MG TAB PO SCH (21:18)
[2022-12-10] MEDS: LOSARTAN 50 MG TAB PO SCH (21:18)
[2022-12-10] MEDS: DONEPEZIL 10 MG TAB PO SCH (21:19)
[2022-12-10] MEDS: ASPIRIN 81 MG PO SCH (21:19)
[2022-12-11 05:36] LABS: Glucose,Whole Blood 216 mg/dL (70-110)
[2022-12-11] MEDS: INSULIN DETEMIR (LEVEMIR) 100 UNIT/ML SYR SQ SCH (06:38)
[2022-12-11] MEDS: INSULIN ASPART (NovoLOG) 100 UNIT/ML VIAL SQ SCH ×4 (06:39→21:17)
[2022-12-11] MEDS: FAMOTIDINE 20 MG/2 ML VIAL IV SCH (09:12)
[2022-12-11] MEDS: CEFEPIME 2 GM in SODIUM CHLORIDE 0.9% 100 ML IVPB SCH (09:12)
[2022-12-11] MEDS: MAGNESIUM OXIDE 400 MG TAB PO SCH ×3 (09:36→21:17)
[2022-12-11] MEDS: COLCHICINE 0.6 MG EACH PO SCH ×2 (09:38→21:17)
[2022-12-11] MEDS: CARBIDOPA-LEVODOPA ER 50-200MG 1 EACH TABLET.ER PO SCH ×2 (09:38→21:16)
[2022-12-11] MEDS: DOCUSATE 100 MG CAP PO SCH ×3 (09:38→21:32)
[2022-12-11] MEDS: amLODIPine 5 MG TAB PO SCH (09:38)
[2022-12-11] MEDS: NON FORMULARY DRUG (Mirabegron [Myrbetriq] 50 MG Tab.Er.24h) PO SCH (09:39)
[2022-12-11] MEDS: MEMANTINE 5 MG TAB PO SCH ×2 (09:39→21:17)
[2022-12-11] MEDS: HEPARIN SODIUM,PORCINE/PF 5,000 UNIT/0.5 ML SYRINGE SQ SCH ×3 (09:44→23:28)
--- NOTE | 2022-12-11 10:25 | P.PN ---
Subjective Progress Note Date: 12/11/22 Principal diagnosis: parkinsons exacerbation Mr. Knight is an 82-year-old male right-handed lives in a two-story home with his with 3 steps to enter through the garage. Patient resides on the main floor. Most recently ambulated with a 4 wheeled walker, needing sup ervision for bathing and lower body dressing. Patient does not drive. Patient's is available 24 7, patient has 4 children who are local and available in the evenings for help. Patient with a past medical history significant for hypertension type 2 diabetes mellitus, Parkinson disease. patient recently did have a battery replacement of the brain stimulator for his Parkinson disease.patient presented to [facility] on 12/04/2022 via EMS for evaluation of increased confusion and mental status changes. Per Family, approximately one week ago the patient had plenty of his brain stimulator batteries placed on his right side of his chest as well as repositioning of one of the leads in the right side of his brain. The patient had been having issues with increased tremors, decreased mobility and difficulty with ADLs for the past couple of weeks prior to the surgery. The neurologist was aware, sees Dr. Álvarez outpatient, but sees Neurointerventionalists at [place] for the stimulator. The procedure was performed outpatient, and patient was discharged home. The patient continued to have issues with mobility and ADLs, became increasingly confused at which point the family brought him into the hospital for evaluation. Patient initially was afebrile, but developed a low-grade fever over the past couple of days. He was started on 2 L of oxygen nasal cannula for mild hypoxemia. He has a chronic cough with difficulty clearing his sputum at baseline. He was evaluated by speech therapy and his diet was modified to dysphagia 2 with nectar thick liquids, one-on-one and aspiration precautions. He was started on antibiotics for possible UTI, WBC was elevated at 22. Chest x-ray revealed no acute cardiopulmonary process. PM&R consult and for rehabilitation recommendations. Patient seen by therapies, max assist 2/dependent for bed mobility, dependent for sit to stand and transfers, bathing max assist, upper body dressing max assist, lower body dressing total assist. At this time patient is currently not ambulating. CT evaluated, continue dysphagia 2 with nectar thick liquids, one-to-one assist, needing mod assist for eating. 12/09/22: Patient seen sitting up in chair reclined, , daughter, grandson at the bedside. Patient appears very fatigued, per family patient did not sleep well, and was up at 5:30 this morning. Patient with decreased alertness, difficulty participating with questioning and exam. Family reports that he is doing really well with his stimulator for the past 5 years. Family reports that patient had significant left-sided weakness and tremors which prompted them to get the battery exchanged in the lead replaced. Patient's is able to provide assistance, patient's children are all teachers and will be returning back to school in a couple of weeks, therefore they will be unable to assist until the evening hours. Patient's daughter reports that he can be ornery at times and difficulty following commands, but does need a lot of cues. He has been able to move his legs. 12/11/22:Patient seen for re-examination today. He is resting in bed with HOB elevated, and daughter at bedside. Patient looking more alert today than prior exam. He was able to work some with therapy yesterday. Family reports that he is a little " sluggish" this morning as he has not had his sinemet, patient agrees. He denies CP, SOB, and abdominal pain. He is urinating in his brief, did not like the purwick. He has no complaints of pain. Of note, patient did have a slight fever a couple of days ago, ID consulted, possible pneumonia. Discussed with and daughter, patient doing better on modified diet. At home, they report that he would consistently have food come out of his nose during every meal, they were unaware he was having aspiration. Therapy: Bathing mod assist, upper body dressing min assist, lower body dressing max assist 2 people, grooming [employer], eating min to mod assist, toileting max assist 2 people, bed mobility max assist 2 people, gait 50 feet Min assist 2 people with 3 sitting rest breaks, transfer min assist x 2 Objective - Vital Signs Vital signs: Vital Signs Temp 97.5 F L 12/11/22 07:26 Pulse 80 12/11/22 07:26 Resp 16 12/11/22 07:26 BP 168/79 12/11/22 07:26 Pulse Ox 92 L 12/11/22 07:26 FiO2 Intake & Output 07/12/11/22 12/11/22 18:59 06:59 18:59 Other: Voiding Method External Catheter Diaper Diaper # Voids 1 1 - Exam General: Well-developed, well-nourished, elderly male laying in bed with HOB elevated, and daughter at the bedside. He is alert. HEENT: right posterior surgical incision, external ears intact, hearing intact to conversational speech Cardiovascular: B/L calves are supple, nontender, no cords, without peripheral edema, no cardiac distress Respiratory: Even and unlabored breathing on RA Abdomen: Soft, nontender, nondistended Musculoskeletal: Difficulty assessing due to intermittently following commands, but improved from prior exam. Moves extremities to antigravity MMT UE Sh Abd EE EF FABD WE HG Right 5 5 5 5 Left 5 5 5 5 MMT LE HF KE DF EHL Right 3 3 5 Left 3 3 5 Skin: Skin intact where visible to head, neck, and bilateral upper and lower extremities EXCEPT: PIV and cranial incision-C/D/I Neurological: Alert and oriented x self. Hypophonic and dysarthric, mumbles Psychiatric: calm, cooperative but confused - Labs CBC & Chem 7: 12/09/22 06:48 12/08/22 09:08 Labs: Abnormal Lab Results - Last 24 Hours (Table) 12/10/22 12/10/22 12/10/22 Range/Units 11:29 16:48 20:01 POC Glucose (mg/dL) 270 H 219 H 224 H (70-110) mg/dL 12/11/22 Range/Units 05:34 POC Glucose (mg/dL) 216 H (70-110) mg/dL Microbiology - Last 24 Hours (Table) 12/06/22 19:20 Blood Culture - Preliminary Blood Assessment and Plan Assessment: #Parkinson's disease exacerbation status post battery exchange for stimulator and repositioning of cranial wire -On Sinemet #Impaired gait and ADLs secondary to above #Altered mental status, likely metabolic # Possible UTI, status post abx # Dysphagia -Dysphagia II with NTL, 1:1, aspiration precautions -12/11/22 recommending hospital bed for patient at home to reduce risk of aspir ation. Discussed with family, patient has been aspiration at every meal at home, was unaware that was considered aspiration. # Leukocytosis # Dementia -Aricept #Comorbidities: DM-2, HLD, HTN #Bowel/ Bladder: Nursing to monitor and report concerns if any. #Skin/wound: Skin/Wound care to follow as needed. #Pain Management: Tylenol 650 mg every 4 when necessary -Patient does not appear to be in any acute distress or pain. #DVT Prophylaxis:Heparin #Your medical dx and mgt Goals: Modified Independent mobility and ADLS both basic and advanced; increased functional mobility/strength; increased balance, safety, endurance. Improvement in medical issues through your care. Barriers: cognition, endurance, balance Discharge recommendation: Patient has had a slight improvement in his alertness and participation with therapy, Still unsure that patient will be able to tolerate the intensity of IPR. Per family, patient improves after Sinemet. Discussed this with family, he may be more appropriate for [facility] as he will be able to have a slower paced rehab. There is currently no bed available at [facility] IPR, if he were a candidate, but possibility later this week. Discussed with SW and IM. I saw patient and d/w family at bedside, RN and case management. Rehab prognosis is Guarded . I do not feel he is able to participate with enough therapies to tolerate 3 hour s a day and therefore [facility] would be the best choice. I understand there was a miscommunication earlier today about the appropriateness or IPR. I apologize for that. The latest therapy notes made us rethink our previous thoughts about level of care. Robson Long MD Patient seen and examined in coordination with Dr Robson Long/ Mavis Land PA-C
[2022-12-11 10:48] LABS: Glucose,Whole Blood 228 mg/dL (70-110)
--- NOTE | 2022-12-11 14:08 | P.DS ---
Providers Date of admission: 12/07/22 17:38 Attending physician: Ghislaine Osorio Consults: 12/06/22 14:57 Consult Physician Urgent Consulting Provider: Robson Long Consult Reason/Comments: INP REHAB Do you want consulting provider notified?: Yes 12/08/22 14:57 Consult Physician Routine Consulting Provider: Rome Hopkins Consult Reason/Comments: fever ,slow to improved Do you want consulting provider notified?: Yes Primary care physician: Dean Garrett [place] [facility] Course: Diagnoses: Altered mental status likely due to metabolic encephalopathy. Improved to baseline Bilateral aspiration pneumonia. Improving Possible urinary tract infection, less likely Hypovolemic hyponatremia. Improved Recent adjustment of brain stimulator x2. Lactic acidosis likely due to tissue hypoperfusion. Improved Hypomagnesemia Hyperglycemia with uncontrolled diabetes type 2 Memory impairment/dementia Parkinson disease History of renal stones Hyperlipidemia Hospital course: Patient is a 82-year-old male with a known history of hypertension, diabetes type 2, Parkinson's disease and recent battery replacement of the brain stimulator presents to ER due to increased confusion and altered mental status. According to the family patient is not acting appropriately as per his baseline. Symptoms have been present throughout yesterday. Patient has been very weak and not eating well. Otherwise patient is unable to provide any history. Awake alert and follows simple commands. Patient has been afebrile. Pulse ox 93% on room air. Blood pressure 147/52. Patient was found to have infection with fever 100.3 on admission, suspected secondary to aspiration pneumonia, UTI felt less likely. Patient was treated with antibiotic cefepime, ID team evaluated the patient. Patient showed interval improvement, his mentation is back to baseline (as per family and daughter at bedside, mentation is ever better since 4 weeks ago), family were very happy with the progress he made in his mentation. Also he had some swallowing a problem and swallow evaluation was up ain't and diet was adjusted. Currently he is on dysphagia level II diet: Ground. Neck Thick liquids. One-to-one supervision with respiration precaution He tolerates that well He denies any other new symptoms. However patient has advanced Parkinson disease. There is a chance that he would have more deterioration in his swallowing problem down the road and that case he might need other forms of feeding. Currently he is a stable. Patient can be discharged to inpatient rehab today. Patient mentation improved and he follows commands Patient was cleared for discharge by ID team. Patient will be discharged on oral antibiotics per ID team, see discharge instructions Problems and management plan were discussed with the patient and he verbalized understanding and acceptance Patient was found stable and can be discharged home in guarded prognosis however he needs follow-up as an outpatient. Patient was instructed to follow up with PCP Dr. Lang within one week and patient agrees We recommend patient follow up with the neurologist as an outpatient in 1-2 weeks' [address] example Dr. Lucas Upon discharge patient resumed his diabetes medication including Amaryl and metformin, recommend close monitoring of glucose upon discharge Physical exam -Gen: patient is a awake and alert, follows simple commands, answers simple questions however is generally stiff from his Parkinson disease with increased muscle tone no distress CVS: S1-S2, RRR, no murmur Lungs: B/L CTA, no wheezing Abdomen: soft, no distention, no tenderness, positive bowel sounds Extremity: no leg edema or induration -Neuro: Awake alert, follows simple commands. Answers questions appropriately (his mentation improved significantly after he gets Sinemet in the morning each day) Time spent more than 35 minutes Patient Condition at Discharge: Fair Plan - Discharge Summary Discharge Rx Participant: No New Discharge Prescriptions: No Action Aspirin EC [Ecotrin Low Dose] 81 mg PO HS Simvastatin [Zocor] 20 mg PO HS Donepezil [Aricept] 10 mg PO HS metFORMIN HCL [Glucophage] 1,000 mg PO BID Losartan Potassium 50 mg PO HS Glimepiride [Amaryl] 1 mg PO BID Memantine [Namenda] 5 mg PO BID methylPREDNISolone Dose Pack [Medrol Dose Pack] See Taper PO DIRECTED Mirabegron [Myrbetriq] 50 mg PO DAILY Colchicine [Colcrys] 0.6 mg PO BID Carbidopa-Levodopa ER 50-200Mg [Sinemet CR 50-200 mg] 1 tab PO BID Discharge Medication List Aspirin EC [Ecotrin Low Dose] 81 mg PO HS 09/04/17 [History] Donepezil [Aricept] 10 mg PO HS 09/04/17 [History] Losartan Potassium 50 mg PO HS 09/04/17 [History] Simvastatin [Zocor] 20 mg PO HS 09/04/17 [History] metFORMIN HCL [Glucophage] 1,000 mg PO BID 09/04/17 [History] Glimepiride [Amaryl] 1 mg PO BID 12/14/18 [History] Memantine [Namenda] 5 mg PO BID 07/21/19 [History] Colchicine [Colcrys] 0.6 mg PO BID 12/04/22 [History] Mirabegron [Myrbetriq] 50 mg PO DAILY 12/04/22 [History] Carbidopa-Levodopa ER 50-200Mg [Sinemet CR 50-200 mg] 1 tab PO BID 12/05/22 [History] Acetaminophen Tab [Tylenol] 650 mg PO Q4HR PRN tab 12/11/22 [Rx] Docusate [Colace] 100 mg PO BID 20 Days #20 cap 12/11/22 [Rx] Magnesium Oxide [Mag-Ox] 400 mg PO TID 7 Days tab 12/11/22 [Rx] amLODIPine [Norvasc] 5 mg PO DAILY tab 12/11/22 [Rx] Follow up Appointment(s)/Referral(s): Dean Garrett MD [Primary Care Provider] - 1-2 days
[2022-12-11] MEDS ORDERED: LEVOFLOXACIN 500 MG TAB PO STA (16:37)
[2022-12-11 16:53] LABS: Glucose,Whole Blood 222 mg/dL (70-110)
[2022-12-11 20:16] LABS: Glucose,Whole Blood 228 mg/dL (70-110)
[2022-12-11] MEDS: ASPIRIN 81 MG PO SCH (21:16)
[2022-12-11] MEDS: ATORVASTATIN 10 MG TAB PO SCH (21:16)
[2022-12-11] MEDS: LOSARTAN 50 MG TAB PO SCH (21:17)
[2022-12-11] MEDS: DONEPEZIL 10 MG TAB PO SCH (21:17)
[2022-12-12 05:49] LABS: Glucose,Whole Blood 217 mg/dL (70-110)
[2022-12-12] MEDS: INSULIN ASPART (NovoLOG) 100 UNIT/ML VIAL SQ SCH ×2 (06:29→12:18)
[2022-12-12] MEDS: INSULIN DETEMIR (LEVEMIR) 100 UNIT/ML SYR SQ SCH (06:30)
[2022-12-12 07:56] VITALS: BP 133/70; PULSE 72; RESP 16; TEMP 97.8
[2022-12-12] MEDS: DOCUSATE 100 MG CAP PO SCH (08:18)
[2022-12-12] MEDS: CARBIDOPA-LEVODOPA ER 50-200MG 1 EACH TABLET.ER PO SCH (08:18)
[2022-12-12] MEDS: MAGNESIUM OXIDE 400 MG TAB PO SCH (08:18)
[2022-12-12] MEDS: amLODIPine 5 MG TAB PO SCH (08:18)
[2022-12-12] MEDS: MEMANTINE 5 MG TAB PO SCH (08:18)
[2022-12-12] MEDS: COLCHICINE 0.6 MG EACH PO SCH (08:19)
[2022-12-12] MEDS: HEPARIN SODIUM,PORCINE/PF 5,000 UNIT/0.5 ML SYRINGE SQ SCH (08:22)
[2022-12-12] MEDS: NON FORMULARY DRUG (Mirabegron [Myrbetriq] 50 MG Tab.Er.24h) PO SCH (08:25)
[2022-12-12] MEDS: FAMOTIDINE 20 MG/2 ML VIAL IV SCH (10:04)
[2022-12-12 11:15] LABS: Glucose,Whole Blood 291 mg/dL (70-110)
--- NOTE | 2022-12-12 12:03 | P.DS ---
Providers Date of admission: 12/07/22 17:38 Expected date of discharge: 12/12/22 Attending physician: Ghislaine Osorio Consults: 12/06/22 14:57 Consult Physician Urgent Consulting Provider: Robson Long Consult Reason/Comments: INP REHAB Do you want consulting provider notified?: Yes 12/08/22 14:57 Consult Physician Routine Consulting Provider: Rome Hopkins Consult Reason/Comments: fever ,slow to improved Do you want consulting provider notified?: Yes Primary care physician: Dean Penningtonkas [facility] Course: Final diagnosis Altered mental status likely due to metabolic encephalopathy. Improved to baseline Bilateral aspiration pneumonia. Improving Possible urinary tract infection, less likely Hypovolemic hyponatremia. Improved Recent adjustment of brain stimulator x2. Lactic acidosis likely due to tissue hypoperfusion. Improved Hypomagnesemia Hyperglycemia with uncontrolled diabetes type 2 Memory impairment/dementia Parkinson disease History of renal stones Hyperlipidemia Discharge disposition Patient is being discharged in a stable condition with guarded prognosis to [facility]. Patient will follow-up with Dr. Garrett in the outpatient setting upon discharge. Patient is to continue with oral Avelox daily for the next 1 week. Total time taken is greater than 35 minutes. Hospital course: Patient is a 82-year-old male with a known history of hypertension, diabetes type 2, Parkinson's disease and recent battery replacement of the brain stimulator presents to ER due to increased confusion and altered mental status. According to the family patient is not acting appropriately as per his baseline. Symptoms have been present throughout yesterday. Patient has been very weak and not eating well. Otherwise patient is unable to provide any history. Awake alert and follows simple commands. Patient has been afebrile. Pulse ox 93% on room air. Blood pressure 147/52. Patient was found to have infection with fever 100.3 on admission, suspected secondary to aspiration pneumonia, UTI felt less likely. Patient was treated with antibiotic cefepime, ID team evaluated the patient. Patient showed interval improvement, his mentation is back to baseline (as per family and daughter at bedside, mentation is ever better since 4 weeks ago), family were very happy with the progress he made in his mentation. Also he had some swallowing a problem and swallow evaluation was up ain't and diet was adjusted. Currently he is on dysphagia level II diet: Ground. Neck Thick liquids. One-to-one supervision with respiration precaution He tolerates that well He denies any other new symptoms. However patient has advanced Parkinson disease. There is a chance that he would have more deterioration in his swallowing problem down the road and that case he might need other forms of feeding. Currently he is a stable. Patient can be discharged to inpatient rehab today. Patient mentation improved and he follows commands Patient was cleared for discharge by ID team. Patient will be discharged on oral antibiotics per ID team, see discharge instructions Problems and management plan were discussed with the patient and he verbalized understanding and acceptance Patient was found stable and can be discharged home in guarded prognosis however he needs follow-up as an outpatient. Patient was instructed to follow up with PCP Dr. Lang within one week and patient agrees We recommend patient follow up with the neurologist as an outpatient in 1-2 weeks' for example Dr. Lucas Upon discharge patient resumed his diabetes medication including Amaryl and metformin, recommend close monitoring of glucose upon discharge Patient to discontinue colchicine and discharge Physical exam Gen: patient is a awake and alert, follows simple commands, answers simple questions however is generally stiff from his Parkinson disease with increased muscle tone no distress CVS: S1-S2, RRR, no murmur Lungs: B/L CTA, no wheezing Abdomen: soft, no distention, no tenderness, positive bowel sounds Extremity: no leg edema or induration Neuro: Awake alert, follows simple commands. Answers questions appropriately (his mentation improved significantly after he gets Sinemet in the morning each day) Please refer to medication reconciliation sheet for a list of medications. The impression and plan of care has been dictated by Tabatha Clemente, Nurse Practitioner as directed. Dr. Devon MD I have performed a history and examination and MDM of this patient, discussed the same with the dictator, and agree with the dictator's assessment and plan as written ,documented as a scribe. Based on total visit time, I have performed more than 50% of the visit. Patient Condition at Discharge: Fair Plan - Discharge Summary Discharge Rx Participant: No New Discharge Prescriptions: New Docusate [Colace] 100 mg PO BID 20 Days #20 cap Moxifloxacin HCl [Avelox] 400 mg PO DAILY #7 tab Magnesium Oxide [Mag-Ox] 400 mg PO TID 7 Days tab amLODIPine [Norvasc] 5 mg PO DAILY tab Acetaminophen Tab [Tylenol] 650 mg PO Q4HR PRN tab PRN Reason: Fever and/ or Mild Pain Continue Aspirin EC [Ecotrin Low Dose] 81 mg PO HS Simvastatin [Zocor] 20 mg PO HS Donepezil [Aricept] 10 mg PO HS metFORMIN HCL [Glucophage] 1,000 mg PO BID Losartan Potassium 50 mg PO HS Glimepiride [Amaryl] 1 mg PO BID Memantine [Namenda] 5 mg PO BID Mirabegron [Myrbetriq] 50 mg PO DAILY Colchicine [Colcrys] 0.6 mg PO BID Carbidopa-Levodopa ER 50-200Mg [Sinemet CR 50-200 mg] 1 tab PO BID Discontinued methylPREDNISolone Dose Pack [Medrol Dose Pack] See Taper PO DIRECTED Discharge Medication List Aspirin EC [Ecotrin Low Dose] 81 mg PO HS 09/04/17 [History] Donepezil [Aricept] 10 mg PO HS 09/04/17 [History] Losartan Potassium 50 mg PO HS 09/04/17 [History] Simvastatin [Zocor] 20 mg PO HS 09/04/17 [History] metFORMIN HCL [Glucophage] 1,000 mg PO BID 09/04/17 [History] Glimepiride [Amaryl] 1 mg PO BID 12/14/18 [History] Memantine [Namenda] 5 mg PO BID 07/21/19 [History] Colchicine [Colcrys] 0.6 mg PO BID 12/04/22 [History] Mirabegron [Myrbetriq] 50 mg PO DAILY 12/04/22 [History] Carbidopa-Levodopa ER 50-200Mg [Sinemet CR 50-200 mg] 1 tab PO BID 12/05/22 [History] Acetaminophen Tab [Tylenol] 650 mg PO Q4HR PRN tab 12/11/22 [Rx] Docusate [Colace] 100 mg PO BID 20 Days #20 cap 12/11/22 [Rx] Magnesium Oxide [Mag-Ox] 400 mg PO TID 7 Days tab 12/11/22 [Rx] Moxifloxacin HCl [Avelox] 400 mg PO DAILY #7 tab 12/11/22 [Rx] amLODIPine [Norvasc] 5 mg PO DAILY tab 12/11/22 [Rx] Follow up Appointment(s)/Referral(s): Dean Garrett MD [Primary Care Provider] - 1-2 days Guillaume Lucas DO [STAFF PHYSICIAN] - 1 Week (Office stated they will call for appointment time and date. Faxed over facesheet.) Activity/Diet/Wound Care/Special Instructions: Patient is going to fav[facility]or[facility] Activity as tolerated Continue dysphagia level II diet: Ground. Neck Thick liquids. One-to-one supervision with aspiration precaution and head of the bed elevated 30-45 at all times Continue with antibiotics for 7 days Discharge Disposition: TRANSFER TO SNF/ECF
== END 2022-12-12 13:05 | DRG 177 ==
LOC: EC 19:13 → 4SSUR 12-05 00:59 → OBSVTOIN 12-07 17:38
PROVIDERS: ADMIT Hospitalist; ATTEND Hospitalist
DX: J69.0 Pneumonitis due to inhalation of food and vomit (principal); G93.41 Metabolic encephalopathy; F05 Delirium due to known physiological condition; N39.0 Urinary tract infection, site not specified; E87.1 Hypo-osmolality and hyponatremia; E87.20 Acidosis, unspecified; E86.1 Hypovolemia; E83.42 Hypomagnesemia; E11.65 Type 2 diabetes mellitus with hyperglycemia; G20 Parkinson's disease; F02.80 Dementia in other diseases classified elsewhere, unspecified severity, without behavioral disturbance, psychotic disturbance, mood disturbance, and anxiety; E78.5 Hyperlipidemia, unspecified; M10.9 Gout, unspecified; R13.10 Dysphagia, unspecified; R09.02 Hypoxemia; I10 Essential (primary) hypertension; E86.0 Dehydration; Z79.899 Other long term (current) drug therapy; Z88.0 Allergy status to penicillin; Z96.82 Presence of neurostimulator; Z79.84 Long term (current) use of oral hypoglycemic drugs
CPT/HCPCS: 36415; 71045; 72170; 74230; 80048; 80053; 81001; 83036; 83605; 83735; 84100; 84145; 84484; 85025; 86140; 87040; 87086; 93005; 94760; 96361; 96365; 99285